=== PATIENT | male | born 1945 | race Caucasian/White ===

== ENCOUNTER 2017-12-24 10:48 | Outpatient (REF) | payer MEDICARE, SELFPAY ==
[2017-12-24 14:00] LABS: TSH 2.99 uIU/mL (0.358-3.74)
== END 2017-12-24 10:49 ==
LOC: NCHCN 10:48
PROVIDERS: PCP Internal Medicine; Visit Provider Internal Medicine
DX: E03.9 Hypothyroidism, unspecified (principal)
CPT/HCPCS: 84443

== ENCOUNTER 2018-01-14 10:14 | Outpatient (CLI) | payer MEDICARE, SELFPAY ==
--- NOTE | 2018-01-14 10:18 | DI.REPORT_ITS ---
SYMPTOMS/DIAGNOSIS: LT ANKLE PAIN, LT FOOT PAIN, M25.572, M79.672 LEFT ANKLE: Three views. No priors. No acute or healing fracture or dislocation is identified. There is mild spurring at the anterior aspect of the distal tibia. The ankle joint is otherwise well maintained. The bones are normally mineralized. There is soft tissue swelling about the ankle particularly laterally. No radiopaque foreign bodies are seen in the soft tissues. IMPRESSION: Soft tissue swelling about the ankle. If there is concern for internal derangement, an MRI should be considered for further evaluation. No acute or healing fracture or dislocation is appreciated. LEFT FOOT: Three views. No acute or healing fracture or dislocation is seen. Mild degenerative changes are seen in the foot predominantly involving the tarsal bone and the first metatarsal phalangeal joint and the interphalangeal joint of the great toe. Spurring is seen of the posterior calcaneus. There is generalized diffuse soft tissue swelling of the foot. No radiopaque foreign bodies are seen. IMPRESSION: 1. Osteoarthritis of the left foot. 2. Generalized soft tissue swelling of the foot.
== END 2018-01-14 10:15 ==
PROVIDERS: PCP Internal Medicine; Visit Provider Nurse Practitioner Family
DX: M25.572 Pain in left ankle and joints of left foot (principal); M79.672 Pain in left foot; R22.42 Localized swelling, mass and lump, left lower limb; M19.072 Primary osteoarthritis, left ankle and foot
CPT/HCPCS: 73610; 73630

== ENCOUNTER 2018-01-16 15:10 | Emergency (ER) | payer MEDICARE, SELFPAY ==
[2018-01-16 15:14] VITALS: BP 162/89; PULSE 83; RESP 18; TEMP 37.1; O2SAT 97
[2018-01-16 15:20] VITALS: BP 136/83; PULSE 61; RESP 18; O2SAT 96
[2018-01-16 15:35] VITALS: BP 135/68; PULSE 61; RESP 16; O2SAT 97
--- NOTE | 2018-01-16 15:40 | DI.RPTCT_ITS ---
SYMPTOM/DIAGNOSIS: NEGATIVE XR, TRAUMA, ? OSTEO LEFT ANKLE CT: The study was carried out with an intravenous administration of 50 cc's of Omnipaque 350. There is no evidence of an acute fracture or dislocation. The possibility of a subdermal hematoma along the dorsolateral aspect of the tarsal metatarsal articulations is suggested. There are advanced degenerative changes in the first metatarsal phalangeal joint. There is some dorsal subdermal subcutaneous edema seen predominantly over the dorsolateral aspect of the tarsal metatarsus. Tiny calcaneal spurs are present along the insertion site of the Achilles tendon and plantar aspect which measures approximately 3.3 by 1.6 cm. There is no radiopaque foreign body. SUMMARY: Dorsal soft tissue swelling is present over the tarsal metatarsals, most prominent over the lateral aspect. A possible subdural hematoma is identified along the dorsolateral aspect of the tarsal metatarsals. There are degenerative changes as described above and no evidence of an acute fracture or dislocation.
[2018-01-16 16:11] LABS: Abs Immature Grans 0.08 k/cumm (0.0-0.09); Absolute Basophil Count 0.06 k/cumm (0.0-0.2); Absolute Eosinophil Count 0.61 k/cumm (0.0-0.7); Absolute Lymphocyte Count 1.59 k/cumm (1.2-3.4); Absolute Monocyte Count 0.93 k/cumm (0.11-0.7); Absolute Neutrophil Count 4.82 k/cumm (1.2-6.7); Basophils % 0.7; Eosinophils % 7.5; HCT 43.5 % (40.0-50.0); HGB 14.8 g/dL (13.5-17.5); Lymphocytes % 19.7; Mean Corpuscular Hemoglobin 31.2 pg (27.0-33.0); Mean Corpuscular Volume 91.6 fL (80-95); Mean Platelet Volume 11.3 fL (8.0-11.0); Monocytes % 11.5; Neutrophils % 59.6; Platelet Count 201 x1000/uL (130-400); RBC 4.75 m/cumm (4.50-6.00); RBC Distribution Width 14.3 % (11.8-14.1); White Blood Cell Count 8.09 k/cumm (4.4-10.8)
--- NOTE | 2018-01-16 16:11 | ED.GENADUL ---
Disposition Clinical Impression: Hematoma Disposition: HOME Condition: Good Instructions: Hematoma (ED) Additional Instructions: Please continue to elevate your foot, wrap it in a stocking hose, and take the antibiotic. Please stop taking your previous dose of Keflex, utilize the new dose as written in the prescription. Please follow-up with your primary care provider in the next 48 hours. If you notice any worsening of your symptoms, or any new symptoms such as vomiting, diarrhea, fever, chills, shortness of breath, chest pain, numbness, weakness, or fainting , please return immediately to the emergency department for reevaluation. Please follow up with your primary care provider as soon as possible for reassessment and reevaluation. As always, it was a pleasure participating in your medical care today. Prescriptions: Cephalexin [Keflex] 500 mg PO Q6H #28 cap Referrals: Paul Spaulding MD [Primary Care Provider] - Medical Decision Making - Medical Decision Making This is a 72-year-old gentleman who is on Coumadin, and had a table fell on his foot on the left 1.5 weeks ago. Since then he has had notable swelling, tenderness, and redness and warmth. He was started on Keflex has been taking this religiously for the past 3 days however he has had no improvement of the redness. Physical exam demonstrates notable redness and swelling, bedside ultrasound demonstrates an area of nonfluctuant fluid collection over the dorsal aspect of the foot extending down towards the toes which does seem to represent a large hematoma. He was sent in by his PCP for evaluation of potential osteomyelitis or cellulitis or infection. We will perform a laboratory workup to evaluate for any potential infection versus osteomyelitis. We will get a laboratory workup to confirm this. We will get a culture of the fluid coming from his lesion. If it turns out to be resistant his antibiotics will be changed. 5:46 PM Patient's INR is within normal limits. No significant white count, ESR is normal, CRP is only minimally elevated. No other significant severe laboratory abnormality. The patient's CT scan of the lower extremity shows no definite identification of subcutaneous gas or periosteal elevation to indicate subcutaneous abscess or osteomyelitis at the present time. There is dorsal soft tissue swelling over the tarsal metatarsals most pronounced along the lateral aspect, and a possible subdermal hematoma is identified along the dorsal aspect of the tarsal metatarsal articulations. With a benign laboratory workup, no vital sign suggestive of systemic infection, and CT images showing no gas, periosteal elevation or significant signs of infection I feel he can be safely discharged home. I do think it is tang to continue the Keflex. He was on 500 mg twice daily, however I will increase this to 4 times daily as the patient is a larger man and I feel a slight increase dose to be more appropriate in the current clinical scenario. We long discussion regarding red flags which to immediately return the patient understands. Patient will follow up on Sunday with his PCP. I have extensively reviewed the treatment plan and discharge instructions with the patient and their family. I have addressed all patient concerns at this time. The patient and family was made aware of what symptoms to monitor for that would warrant a return to the emergency department. Discussed the plan with the patient and family, they demonstrate verbal understanding and agreement with our assessment and plan at this time. History of Present Illness - General Chief complaint: Orthopedic Stated complaint: PER [facility] Time Seen by Provider: 01/16/18 15:40 - History of Present Illness Initial comments: This is a 72-year-old male with a past medical history of Coumadin use, CABG, AAA, who presents for evaluation of left foot pain. Patient states that 1.5 weeks ago he dropped a very heavy picnic table on the dorsal aspect of his left foot. He had notable pain after that. There was initial bruising and swelling, which eventually went down with time. He was seen by his primary care provider and started on Keflex. He has been on this Keflex for 3 few days at this point, and has had no significant improvement. He has no previous history of MRSA there was some redness noted around the dorsal aspect of the foot, this redness had not been improving per his nursing . They did contact her primary care provider who recommended that they come to the ER for further evaluation of osteomyelitis or osteoarthritis. Currently the patient states that the pain is located in his foot extending up to his ankle. There is mild redness in this area. There is a small amount of drainage coming from the dorsal aspect of the foot. It was initially clear in color but now is slightly yellow. Pain is made worse by palpation and movement. It is improved by nothing. He denies any other associated complaints or symptoms. He denies any fevers, chills, cough, calf pain, thigh pain. He denies any pain in his knee or hip. Past surgical history is positive for left knee repair, CABG. AAA repair. No pertinent family history. No IV or illicit drug use. No other complaints at this time. - Related Data Aspirin 81 mg PO DAILY tab-cap NS 08/29/12 Levothyroxine Sodium [Synthroid] 150 mcg PO DAILY tab-cap NS 08/29/12 Metoprolol Succinate [Toprol Xl] 200 mg PO DAILY 08/29/12 Rosuvastatin [Crestor] 2.5 mg PO EVERY OTHER DAY 08/29/12 Warfarin [Coumadin] 2.5 mg PO DIRECTED 08/29/12 Lactase Enzyme [Lactaid] 1 cap PO DAILY 04/28/14 Acetaminophen with Codeine [Acetaminophen-Cod #4 Tablet] 1 tab-cap PO Q4H PRN tab-cap 05/29/14 Duloxetine HCl 30 mg PO DAILY NS 09/18/17 Amlodipine Besylate 10 mg PO DAILY #90 tab-cap 10/24/17 Dofetilide 500 mcg PO Q12H #60 tab-cap 12/07/17 Cephalexin [Keflex] 500 mg PO Q6H #28 cap 01/16/18 Allergies Allergy/AdvReac Type Severity Reaction Status Date / Time doxycycline calcium AdvReac Unknown bradycardia Unverified 01/16/18 15:19 [From Vibramycin] Review of Systems Other: 10 point review of systems was performed, pertinent positives and negatives are noted in the history of present illness. General Exam - Other Other exam information: 1.Const: Well-nourished, Well-developed, appearing stated age 2.Eyes: PERRL, no conjunctival injection, and symmetrical lids. 3.ENT: Atraumatic external nose and ears. Moist MM. Neck: Symmetric, trachea midline, No thyromegaly. 4.CVS: +S1/S2, No murmurs or gallops. Peripheral pulses 2+ and equal in all extremities. Brisk capillary refill in all extremities. 5.RESP: Unlabored respiratory effort. Clear to auscultation bilaterally. No wheezes rales or rhonchi 6.GI: Soft, Nontender/Nondistended, No hepatosplenomegaly. No guarding or rebound. 7.MSK: Patient demonstrates redness over the dorsal aspect of his left foot, as well as notable swelling in this area. A small amount of discharge is noted from the dorsal aspect, it is clear in color. Notable tenderness and some fluctuance over this area. Erythema extends to the base of the toes, and extends roughly 1 cm proximal of the ankle. Pain with palpation and movement of this area, as well as pain with palpation and movement of the left ankle. Mild warmth over this area. Sensation is intact, capillary refill is brisk. Dorsalis pedis is +2 bilaterally. 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 Sensation grossly intact, no focal neurologic deficits. 10.Psych: (AAO) x3. Appropriate mood and affect Course Vital Signs - 24 hr 01/16/18 01/16/18 01/16/18 15:14 15:20 15:35 Temperature 37.1 C Pulse 83 61 61 Respiratory 18 18 16 Rate Blood Pressure 162/89 136/83 135/68 Pulse Oximetry 97 96 97
[2018-01-16 16:27] LABS: ALT 14 U/L (12-78); AST 17 U/L (15-37); Albumin 3.5 g/dL (3.4-5.0); Alkaline Phosphatase 71 U/L (46-116); Anion Gap 6.5 mmol/L (3-11); BUN 22 mg/dL (7-18); Bilirubin, Total 0.6 mg/dL (0.2-1.0); CO2 27.5 mmol/L (21.0-32.0); CREATININE 1.53 mg/dL (0.70-1.30); Chloride 103 mmol/L (98-107); Estimated GFR 44.71 (mL/min/1.73m2); Glucose 135 mg/dL (70-100); INR 2.5 (1.0-3.5); PTT Activated 37.3 sec (21.0-31.4); Potassium 3.8 mmol/L (3.5-5.1); Prothrombin Time 23.2 sec (9.3-10.8); Sodium 137 mmol/L (136-145); Total Protein 7.5 g/dL (6.4-8.2)
[2018-01-16] MEDS: Omnipaque 350 MG/ML 50 ML BTL IJ (16:33)
[2018-01-16 17:04] LABS: ESR 14 MM/HR (1-20)
--- NOTE | 2018-01-16 17:13 | DI.VRAD_ITS ---
EXAM: CT Left Lower Extremity With Intravenous Contrast, Foot CLINICAL HISTORY: 72 years old, male; Signs and symptoms; Edema; Yes, it is localized TECHNIQUE: Axial computed tomography images of the left foot with intravenous contrast. All CT scans at this facility use at least one of these dose optimization techniques: automated exposure control; mA and/or kV adjustment per patient size (includes targeted exams where dose is matched to clinical indication); or iterative reconstruction. Coronal and sagittal reformatted images were created and reviewed. CONTRAST: 50 mL of omnipaque administered intravenously. COMPARISON: CR - LEFT FOOT COMPLETE 01/14/2018 10:18 AM FINDINGS: Bones/joints: No acute fracture is detected. There may be an associated ellipsoid-shaped 4.0 x 1.0 cm subdermal hematoma along the dorsal lateral aspect overlying the tarsal-metatarsal articulations. Advanced degenerative arthritis is seen within the first IP joint. The remaining articular interspaces appear adequately maintained. No dislocation. Soft tissues: Some dorsal subdermal/subcutaneous edema is seen predominantly over the dorsal lateral aspect of the tarsal-metatarsals. Tiny calcaneal spurs are present arising from along the insertion site of the Achilles tendon and plantar aspects which measure approximately 3.3 and 1.6 mm in length respectively. No radiopaque foreign body. IMPRESSION: 1. Dorsal soft tissue swelling is present over the tarsal-metatarsals; most pronounced along the lateral aspect. 2. A possible subdermal hematoma is identified along the dorsal-lateral aspect of the tarsal-metatarsal articulations as described above. Dictated and Authenticated by: Aidan Stafford MD. Ordering:MARY GRACE SU MD
[2018-01-16 17:30] VITALS: BP 113/76; PULSE 64; RESP 16; TEMP 37; O2SAT 96
[2018-01-16] MEDS: Normal Saline 500 ML 1000 ML IV (17:33)
== END 2018-01-16 18:02 | disposition home or self-care (01) ==
LOC: ER 01-16 20:51
PROVIDERS: Emergency Provider Student in an Organized Health Care Education/Training Program; PCP Internal Medicine
DX: S90.32XA Contusion of left foot, initial encounter (principal); W20.8XXA Other cause of strike by thrown, projected or falling object, initial encounter; I12.9 Hypertensive chronic kidney disease with stage 1 through stage 4 chronic kidney disease, or unspecified chronic kidney disease; N18.9 Chronic kidney disease, unspecified; Z79.01 Long term (current) use of anticoagulants; I48.91 Unspecified atrial fibrillation
CPT/HCPCS: 73701; 99284; 99285; Q9967; 36415; 80053; 85652; 85025; 85610; 85730; 86140; 87070; 87205

== ENCOUNTER 2018-02-25 16:06 | Outpatient (REF) | payer MEDICARE, SELFPAY ==
[2018-02-25 21:32] LABS: INR 1.8 (1.0-3.5); Prothrombin Time 17.5 sec (9.3-10.8)
[2018-02-25 21:49] LABS: Anion Gap 12.3 mmol/L (3-11); BUN 22 mg/dL (7-18); CO2 25.7 mmol/L (21.0-32.0); CREATININE 1.55 mg/dL (0.70-1.30); Calcium 9.5 mg/dL (8.5-10.1); Chloride 102 mmol/L (98-107); Estimated GFR 44.05 (mL/min/1.73m2); Glucose 101 mg/dL (70-100); NT-proBNP 166 pg/mL; Potassium 4.5 mmol/L (3.5-5.1); Sodium 140 mmol/L (136-145)
== END 2018-02-25 16:26 ==
LOC: NCHCN 16:06
PROVIDERS: PCP Internal Medicine; Visit Provider Internal Medicine
DX: R06.09 Other forms of dyspnea (principal); R60.0 Localized edema; I48.91 Unspecified atrial fibrillation
CPT/HCPCS: 80048; 83880; 85610

== ENCOUNTER 2018-02-26 11:45 | Outpatient (CLI) | payer MEDICARE, SELFPAY ==
--- NOTE | 2018-02-26 09:57 | DI.US_ITS ---
SYMPTOMS/DIAGNOSIS: LEG EDEMA, R60.0, PAIN, M79.672, ? DVT/BAKERS CYST LEFT LOWER EXTREMITY ULTRASOUND: The deep veins of the left lower extremity show normal compression, augmentation and color flow. No evidence of a deep venous thrombus is seen. Within the popliteal fossa there is a 1.6 x 0.8 x 0.9 cm fluid collection likely reflecting a popliteal cyst. There is fluid seen in the subcutaneous tissues around the knee particularly medially and superior to the knee. IMPRESSION: 1. No evidence of a left lower extremity deep venous thrombus. 2. 1.6 cm popliteal cyst. 3. Fluid in the subcutaneous tissues about the knee.
== END 2018-02-26 12:05 ==
PROVIDERS: PCP Internal Medicine; Visit Provider Internal Medicine
DX: M79.662 Pain in left lower leg (principal); R60.0 Localized edema; M71.22 Synovial cyst of popliteal space [Baker], left knee
CPT/HCPCS: 93971

== ENCOUNTER 2018-03-18 13:32 | Outpatient (CLI) | payer MEDICARE, SELFPAY ==
--- NOTE | 2018-03-18 13:29 | DI.RAD_ITS ---
SYMPTOM/DIAGNOSIS: LT KNEE AND RT HIP PAIN LEFT KNEE AND LEG LENGTH EXAMINATION: There is loss of the medial joint compartment of the left knee. There is flattening of the articular surfaces. Moderately severe narrowing of the patellofemoral joint is present. Prominent osteophytes are seen of the patellofemoral joint. There are small to moderate sized osteophytes arising from both the medial and lateral femoral tibial joint spaces. No acute fracture or dislocation is seen. The bones are normally mineralized. There is a small joint effusion. There is a well circumscribed osseous density in the suprapatellar region suspicious for a loose body. Vascular calcifications are seen in the soft tissues. The right knee shows mild narrowing of the medial femoral tibial joint space and small osteophytes both medially and laterally. Soft tissue vascular calcifications are seen in the soft tissues. The left lower extremity measures 97.9 cm. The right lower extremity measures 99.5 cm. IMPRESSION: 1. Marked osteoarthritis of the left knee. 2. Mild degenerative changes of the right knee. RIGHT HIP AND PELVIS: Comparison is made with 05/15/13. In the right hip, there is moderate narrowing of the joint space. Mild subchondral sclerosis and spurring is seen at the acetabulum. Mild acetabular spurring is seen in the left hip. The joint space is otherwise well maintained. The bones are intact and normally mineralized. Vascular calcifications are seen in the soft tissues. No acute fracture or dislocation is seen. IMPRESSION: Mild degenerative changes of the hips bilaterally, right greater than left.
== END 2018-03-18 13:52 ==
PROVIDERS: PCP Internal Medicine; Referring Provider Internal Medicine; Visit Provider Student in an Organized Health Care Education/Training Program
DX: M25.562 Pain in left knee (principal); M25.551 Pain in right hip; M17.0 Bilateral primary osteoarthritis of knee; M16.0 Bilateral primary osteoarthritis of hip; M25.462 Effusion, left knee
CPT/HCPCS: 99202; 99214; 73502; 73560; 77073

== ENCOUNTER 2018-03-28 00:14 | Outpatient (CLI) | payer MEDICARE, SELFPAY ==
--- NOTE | 2018-03-28 07:04 | DI.RAD_ITS ---
SYMPTOMS/DIAGNOSIS: RIGHT HIP PAIN, M25.551 RIGHT HIP INJECTION: Fluoroscopy Time: 2 sec Under fluoroscopic control, Dr. Hull carried out a right hip joint injection. Please see the procedure report for further information.
[2018-03-28] MEDS: methylPREDNISolone ACETATE 80 MG/ML VIAL IM (14:50)
[2018-03-28] MEDS: Bupivacaine 0.5% Pres-Free 10 ML VIAL 30 ML IJ (14:51)
[2018-03-28] MEDS: Omnipaque 300 MG/ML 10 ML BTL IJ (14:53)
--- NOTE | 2018-03-28 15:34 | OPPNE_ITS ---
Date of service: 03/28/18 Time of Service: 15:33 Procedure Note Date of procedure: 03/28/18 Procedure: Right Hip Injection with Fluoroscopic Guidance Surgeon/Proceduralist/Physician: Maxi Hull Procedure Diagnosis: Right Hip Osteoarthritis Procedure Indications: Mr. Vazquez has had persistent pain of the RIGHT hip and groin. Noninvasive measures have been tried. To serve as both diagnostic and therapeutic, an injection under fluoroscopy was recommended. I had discussed the risks of the procedure and the patient elected to proceed. Procedure Description: Mr. Vazquez was greeted in the flouroscopy room. The correct side was identified and the consent was reviewed with the patient and signed. The patient was then placed in the supine position on the fluoroscopy table. The RIGHT hip was then prepped with Chloraprep. The anterolateral injection starting point was identiifed by bony landmarks and fluoroscopy. The skin and soft tissue in the tract of the injection was anesthetized with 1% Lidocaine. A spinal needle was then inserted deep into the hip joint at the level of the lateral femoral neck under fluoroscopic guidance. A small amount of Omnipaque solution was injected to confirm intraarticular placement. Once confirmed, the hip was injected with 6cc of 0.5% Bupivicaine and 80mg of Depo- Medrol. A bandaid was placed on the injection site. The patient tolerated the procedure well and noted improvement in pre-injection pain.
== END 2018-03-28 00:34 ==
PROVIDERS: PCP Internal Medicine; Visit Provider Student in an Organized Health Care Education/Training Program
DX: M25.551 Pain in right hip (principal); M16.11 Unilateral primary osteoarthritis, right hip
CPT/HCPCS: 20610; 77002; J1040

== ENCOUNTER → 2018-06-28 10:51 | Outpatient (BNVA) | payer OTHER, SELFPAY | PROVIDERS: PCP Internal Medicine; Visit Provider Internal Medicine Cardiovascular Disease | DX: G47.30 Sleep apnea, unspecified; I49.5 Sick sinus syndrome; I48.0 Paroxysmal atrial fibrillation; E66.9 Obesity, unspecified; Z79.899 Other long term (current) drug therapy; Z95.1 Presence of aortocoronary bypass graft; I10 Essential (primary) hypertension; Z79.01 Long term (current) use of anticoagulants; Z45.018 Encounter for adjustment and management of other part of cardiac pacemaker; I25.118 Atherosclerotic heart disease of native coronary artery with other forms of angina pectoris; E03.9 Hypothyroidism, unspecified | CPT/HCPCS: 93280; 99214 ==

== ENCOUNTER 2018-07-03 00:01 | Outpatient (CLI) | payer OTHER, SELFPAY ==
--- NOTE | 2018-07-03 06:51 | MERGEMPI_ITS ---
*[facility]* [address] [place] [address] Myocardial Perfusion Imaging - SPECT Regadenoson Date of study: 07/03/2018 *PATIENT PRESENTATION* Height: 177.8cm (70in) Blood Pressure: Weight: 124.5kg (274lb) BSA: 2.53m^2 Referring physician: José Manuel Gomez Ordering physician: Ivan Marte Impressions: Normal myocardial perfusion and contraction after pharmacological stress. Summary: 1. Myocardial perfusion imaging: No myocardial perfusion defects noted. 2. The calculated left ventricular ejection fraction after stress: 53%. LV global systolic function is normal. No left ventricular regional motion abnormality. 3. Stress ECG conclusions: The stress ECG is negative. 4. Baseline ECG: Atrial paced rhythm. Indication: I48.91, I25.10, Z95.1. History: REASON FOR TESTING: PATIENT REPORTS RECENT RECURRENT EPISODES OF FEELING SICK TO MY STOMACH, FOLLOWED BY SUDDENLY FEELING CLAMMY AND SWEATY WHENEVER HE EXERTS HIMSELF, LIKE WALKING UP FLIGHT OF STAIRS OR SHOVELING SNOW. HE IS PLANNING FOR A TOTAL KNEE ARTHROPLASTY AT [facility] [place]. HE DENIES CHEST/PRESSURE AND SOB UPON ARRIVAL FOR LEXISCAN STRESS TESTING. SIGNIFICANT PAST MEDICAL HISTORY: S/PCABG IN 2010, PACEMAKER IMPLANT 2005, PAROXYSMAL ATRIAL FIBRILLATION, OBSTRUCTIVE SLEEP APNEA ON CPAP. SMOKING STATUS: QUIT 1996. SMOKED FOR 35 YEARS 1 PPD HISTORY. EXERCISE ROUTINE: DAILY ADL'S AND WALKS DOG DAILY FOR 30 MINUTES. Risk factors: Family history of coronary artery disease. Hypertension. Obesity. Cholesterol: 127mg/dl. HDL: 42mg/dl. LDL: 69mg/dl. Triglycerides: 108mg/dl. Peripheral vascular disease. ALLERGIES: DOXYCYCLINE CALCIUM, STATINS. MEDICATIONS: ASPIRIN 81 MG DAILY, LEVOTHYROXINE 150 MCG DAILY, METOPROLOL SUCCINATE 200 MG DAILY, CRESTOR 2.5 MG EVERY OTHER DAY, WARFARIN 2.5 MG Sunday AND SUNDAY--WARFARIN 5 MG ON Sunday AND SUNDAY, LACTOSE PRN, ACETAMINOPHEN/CODEINE PRN, DULOXETINE 30 MG DAILY, AMLODIPINE 10 MG DAILY, DOFETILIDE 500 MCG BID. Imaging Technique: Protocol: Regadenoson. Acquisition: Gated SPECT; 1 day - rest/stress. The patient was imaged in the supine position. Attenuation correction used. Isotope administration: - Rest. Tc[99m]-sestamibi. Dose: 10.4mCi. Injection time: 08:15 AM. Injection to stress time: 00:45. - Stress. Tc[99m]-sestamibi. Dose: 33.3mCi. Injection time: 11:15 AM. 1-2 min before end of exercise Baseline EC % ATRIAL PACED. HEART RATE 61. Atrial paced rhythm. Stress protocol: +--------+--+ + + !Stage !HR!BP (mmHg) !Comments ! +--------+--+ + + !Baseline!61!140/88 (105)! ! +--------+--+ + + !1 min !60!130/80 (97) !Inject Regadenoson.! +--------+--+ + + !3 min !60!132/80 (97) ! ! +--------+--+ + + !6 min !60!134/80 (98) ! ! +--------+--+ + + * Stress results: STRESS TEST ENDED IN 6 MINUTES 48 SECONDS. NORMAL HEART RATE AND BLOOD PRESSURE RESPONSE TO LEXISCAN INJECTION. NO ANGINA NO ECTOPY NO SIGNIFICANT ST SEGMENT CHANGES. The rate-pressure product for the peak heart rate and blood pressure was 8540mm Hg/min. Stress ECG: The stress ECG is negative. Myocardial perfusion: Imaging information: gated. The image quality was good. Left ventricular size is normal. No myocardial perfusion defects noted. Ventricular Function (Wall Motion): The calculated left ventricular ejection fraction after stress: 53%. LV global systolic function is normal. No left ventricular regional motion abnormality. Study data: José Manuel Gomez MD supervised and was readily available during the procedure. This study was interpreted by [facility]. Study status: Routine. Consent: The risks, benefits, and alternatives to the procedure were explained to the patient and informed consent was obtained. Procedure: Initial setup. A baseline ECG was recorded. Surface ECG leads and manual cuff blood pressure measurements were monitored. Heart sounds: Normal. Lung sounds: Normal. Regadenoson stress test. Stress testing was performed, with regadenoson by intravenous bolus, for a total dose of 0.4mgover 10.00sec, followed by a 5ml saline flush. The infusion was terminated due to per protocol. Study completion: All catheters inserted during the procedure were removed. The patient tolerated the procedure well and was discharged from the lab. Discharge: The patient left the laboratory in stable condition. Birthdate: Patient birthdate: 1945. Sex: Gender: male. Study date: Study date: 07/03/2018. Study time: 00:01 AM. Signature Documentation: - The imaging portion of this study was interpreted by Nuclear Freight Coordinator José Manuel Gomez MD. - The Stress ECG portion of this study was interpreted by José Manuel Gomez MD. Electronically signed by José Manuel Gomez 07/03/2018 12:44
[2018-07-03] MEDS: Regadenoson 0.4 MG/5 ML SYR IVP (09:15)
== END 2018-07-03 00:21 ==
PROVIDERS: PCP Internal Medicine; Visit Provider Internal Medicine Cardiovascular Disease
DX: I48.0 Paroxysmal atrial fibrillation (principal); I25.10 Atherosclerotic heart disease of native coronary artery without angina pectoris; Z95.1 Presence of aortocoronary bypass graft; Z95.0 Presence of cardiac pacemaker; I10 Essential (primary) hypertension; Z87.891 Personal history of nicotine dependence; Z82.49 Family history of ischemic heart disease and other diseases of the circulatory system
CPT/HCPCS: 78452; 93016; 93018; 93017; J2785

== ENCOUNTER → 2018-07-25 13:43 | Outpatient (BNVA) | payer OTHER, SELFPAY | PROVIDERS: PCP Internal Medicine; Visit Provider Internal Medicine Cardiovascular Disease | DX: R42 Dizziness and giddiness (principal); H53.9 Unspecified visual disturbance; I49.5 Sick sinus syndrome; I48.0 Paroxysmal atrial fibrillation; E66.9 Obesity, unspecified; I10 Essential (primary) hypertension; I25.10 Atherosclerotic heart disease of native coronary artery without angina pectoris; G47.30 Sleep apnea, unspecified; Z45.018 Encounter for adjustment and management of other part of cardiac pacemaker | CPT/HCPCS: 93280; 99213 ==

== ENCOUNTER 2018-07-29 10:54 | Outpatient (REF) | payer OTHER, SELFPAY ==
[2018-07-29 12:51] LABS: HGB 15.2 g/dL (13.5-17.5); Mean Corp. HGB Concentration 33.8 g/dL (32.0-36.0); Mean Corpuscular Volume 91.8 fL (80-95); Mean Platelet Volume 11.3 fL (8.0-11.0); Platelet Count 178 x1000/uL (130-400); RBC Distribution Width 13.9 % (11.8-14.1); White Blood Cell Count 5.42 k/cumm (4.4-10.8)
[2018-07-29 13:14] LABS: Anion Gap 7.5 mmol/L (3-11); BUN 24 mg/dL (7-18); CO2 29.5 mmol/L (21.0-32.0); CREATININE 1.64 mg/dL (0.70-1.30); Calcium 9.4 mg/dL (8.5-10.1); Chloride 102 mmol/L (98-107); Estimated GFR 41.27 (mL/min/1.73m2); Glucose 137 mg/dL (70-100); Potassium 4.2 mmol/L (3.5-5.1); Sodium 139 mmol/L (136-145)
== END 2018-07-29 11:14 ==
LOC: NCHCN 10:54
PROVIDERS: PCP Internal Medicine; Visit Provider Internal Medicine
DX: I25.810 Atherosclerosis of coronary artery bypass graft(s) without angina pectoris (principal); N18.9 Chronic kidney disease, unspecified
CPT/HCPCS: 80048; 85027; 83735

== ENCOUNTER 2019-01-16 20:51 | Outpatient (REF) | payer OTHER, SELFPAY ==
[2019-01-16 21:42] LABS: Anion Gap 11.7 mmol/L (3-11); BUN 25 mg/dL (7-18); CO2 26.3 mmol/L (21.0-32.0); CREATININE 1.53 mg/dL (0.70-1.30); Chloride 102 mmol/L (98-107); Estimated GFR 44.59 (mL/min/1.73m2); Glucose 104 mg/dL (70-100); Potassium 4.4 mmol/L (3.5-5.1); Sodium 140 mmol/L (136-145); TSH 6.01 uIU/mL (0.36-3.74)
== END 2019-01-16 21:11 ==
LOC: NCHCN 20:51
PROVIDERS: Visit Provider Internal Medicine
DX: I10 Essential (primary) hypertension (principal); E03.9 Hypothyroidism, unspecified
CPT/HCPCS: 80048; 84443

== ENCOUNTER 2019-05-06 11:46 | Outpatient (REF) | payer OTHER, SELFPAY ==
[2019-05-06 22:26] LABS: FREE T4 1.09 ng/dL (0.76-1.46); TSH 5.13 uIU/mL (0.36-3.74)
== END 2019-05-06 12:06 ==
LOC: NCHCN 11:46
PROVIDERS: PCP Internal Medicine; Visit Provider Internal Medicine
DX: E03.9 Hypothyroidism, unspecified (principal)
CPT/HCPCS: 84439; 84443

== ENCOUNTER 2019-11-13 09:35 | Outpatient (REF) | payer OTHER, SELFPAY ==
[2019-11-13 20:41] LABS: FREE T4 1.15 ng/dL (0.76-1.46); TSH 3.18 uIU/mL (0.36-3.74)
== END 2019-11-13 09:55 ==
LOC: NCHCN 09:35
PROVIDERS: PCP Internal Medicine; Visit Provider Internal Medicine
DX: E03.9 Hypothyroidism, unspecified (principal)
CPT/HCPCS: 84439; 84443

== ENCOUNTER 2019-11-25 10:29 | Emergency (ER) | payer OTHER, SELFPAY ==
[2019-11-25] VITALS (34 sets, daily range): BP systolic 114–134; BP diastolic 60–77; PULSE 58–88; RESP 8–25; TEMP 36.7; O2SAT 91–98
--- NOTE | 2019-11-25 10:15 | RT.EKG_ITS ---
APPROVED REPORT Exam: Resting ECG Patient Location: E HR:89 bpm ECG Measurements Heart Rate 89 AXIS NE 182 P [id number] QRSd 101 QRS 45 QT 393 T -5 QTc 478 <Conclusion> Atrial-paced complexes...other complexes also detected T wave inversion in lead III. No acute ST ischemic changes
--- NOTE | 2019-11-25 10:40 | ED.GENADUL_ITS ---
Discharge Plan Disposition Patient Disposition: HOME Condition: Stable Discharge Details Chief Complaint: Chest Pain Clinical Impression: Chest wall pain Primary Care Provider: Paul Spaulding ED Provider: Yaima Terrazas Home Meds and New Rx's Prescriptions: New lidocaine [Lidoderm] 5 % adhesive patch,medicated 1 patch TP DAILY Qty: 15 RF: 0 methocarbamol 500 mg tablet 500 mg PO Q6H PRN (Reason: muscle spasm) Qty: 14 RF: 0 Continued levothyroxine [Synthroid] 25 MCG tablet 150 mcg PO DAILY RF: 0 aspirin [Aspirin Low-Strength] 81 MG tablet,chewable 81 mg PO DAILY RF: 0 acetaminophen-codeine 1 EACH tablet 1 tab-cap PO Q4H PRN RF: 0 duloxetine 30 MG capsule,delayed release(DR/EC) 30 mg PO DAILY RF: 0 amlodipine 10 MG tablet 10 mg PO DAILY Qty: 90 RF: 3 dofetilide 500 MCG capsule 500 mcg PO Q12H Qty: 60 RF: 12 metoprolol succinate [Toprol XL] 100 MG tablet extended release 24 hr 200 mg PO DAILY RF: 0 warfarin [Coumadin] 5 MG tablet 2.5 mg PO DIRECTED RF: 0 rosuvastatin [Crestor] 5 MG tablet 2.5 mg PO EVERY OTHER DAY RF: 0 lactase 1 CAP tablet 1 cap PO DAILY RF: 0 Discharge Instructions Instructions: Chest Wall Pain (ED) Additional Instructions: Alternate ice and heat to the affected area(s) several times daily for 20 minutes at a time. Take Tylenol as needed and directed for pain. Use the Lidoderm patch and muscle relaxer as needed and directed for pain. Call your primary care doctor's office today to schedule a follow-up appointment for reevaluation and for referral for outpatient stress test. Return to the emergency department if you develop any worsening or new concern ing symptoms. Discharge Data Discharge Physician: Yaima Terrazas Medical Decision Making 1030 -- 74-year-old male with a history of obesity, abdominal aortic aneurysm, atrial fibrillation on Coumadin, coronary artery disease and GA with history of CABG, coronary stent and pacemaker presents for left-sided chest pain that started at rest this morning. Admits to recent frequent outdoor work. EKG notes a rate of 89, sinus with some atrial paced complexes, T wave inversion in lead III which is seen in previous EKG, no acute ST ischemic changes. Patient has localized area of significant tenderness to left anterior chest. Suspect most likely musculoskeletal chest wall pain. Considering patient's age and history, will obtain a cardiac work-up including chest x-ray and give a dose of Valium, IV Tylenol as well as place a Lidoderm patch and reassess. 1200 --labs and imaging reviewed and unremarkable. INR therapeutic at 2.5. Creatinine and GFR at baseline. Troponin negative. Urinalysis negative. Chest x-ray negative. Patient reassessed --he states he feels much better. He is agreeable to stay for second troponin and EKG. 1340 --repeat EKG unchanged. Repeat troponin negative. Patient feels much better and is requesting to go home. Pain near resolved. 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 Advised to call the PCP for follow-up and for outpatient stress test. Usual and customary return precautions given prior to discharge. Pt and agreeable with plan. Medical Records Medical records reviewed: Yes I reviewed the patient's medical records. Imaging Data Radiologic Study: Radiologist's impression: XR CHEST 2V PA LATERAL CLINICAL HISTORY: L chest pain, r/o acute disease TECHNIQUE: 2D digital imaging was performed. COMPARISON: No exams were available for comparison FINDINGS: The heart is enlarged, unchanged. A pacemaker and sternal wires are noted. There are mild underlying fibrotic changes. No infiltrate, effusion or overt pulmonary edema is seen. Degenerative changes are noted in the spine. IMPRESSION: No acute abnormality. Lab Data Lab results reviewed: Yes I reviewed the patient's lab results. Labs: Laboratory Tests Range/Units 11/25/19 11/25/19 11/25/19 10:00 10:00 10:00 WBC (4.4-10.8) k/cumm 5.49 RBC (4.50-6.00) m/cumm 4.91 Hgb (13.5-17.5) g/dL 15.1 Hct (40.0-50.0) % 44.9 MCV (80-95) fL 91.4 MCH (27.0-33.0) pg 30.8 MCHC (32.0-36.0) g/dL 33.6 RDW (11.8-14.1) % 14.0 Plt Count (130-400) x1000/uL 204 MPV (8.0-11.0) fL 11.8 H Immature Gran % % 0.5 Neutrophils % 50.9 Lymphocytes % 27.3 Monocytes % 12.0 Eosinophils % 7.7 Basophils % 1.6 Absolute Neutrophils (1.2-6.7) k/cumm 2.79 Absolute Lymphocytes (1.2-3.4) k/cumm 1.50 Absolute Monocytes (0.11-0.7) k/cumm 0.66 Absolute Eosinophils (0.0-0.7) k/cumm 0.42 Absolute Basophils (0.0-0.2) k/cumm 0.09 PT (9.3-11.0) sec 24.9 H INR (0.9-1.1) 2.5 H APTT (21.0-31.4) sec 34.3 H Sodium (136-145) mmol/L 139 Potassium (3.5-5.1) mmol/L 3.9 Chloride (98-107) mmol/L 103 Carbon Dioxide (21.0-32.0) mmol/L 28.9 Anion Gap (3-11) mmol/L 7.1 BUN (7-18) mg/dL 20 H Creatinine (0.70-1.30) mg/dL 1.50 H Estimated GFR/1.73 m2 (mL/min/1.73m2) 45.50 Glucose (74-106) mg/dL 137 H Calcium (8.5-10.1) mg/dL 9.0 Magnesium (1.8-2.4) mg/dL 2.0 Total Bilirubin (0.2-1.0) mg/dL 0.7 AST (15-37) U/L 16 ALT (16-63) U/L 8 L Alkaline Phosphatase (46-116) U/L 75 Troponin I (<0.06) ng/mL < 0.05 Total Protein (6.4-8.2) g/dL 7.3 Albumin (3.4-5.0) g/dL 3.5 Lipase (73-393) U/L Urine Color (Yellow) Urine Clarity (Clear) Urine pH (5-8) Ur Specific [place] (1.005-1.025) Urine Protein (Negative) mg/dL Urine Ketones (Negative) mg/dL Urine Blood (Negative) Urine Nitrite (Negative) Urine Bilirubin (Negative) Urine Urobilinogen (Up TO 0.2) EU/dL Ur Leukocyte Esterase (Negative) Urine Glucose (Negative) mg/dL Range/Units 11/25/19 11/25/19 11/25/19 10:00 11:40 13:00 WBC (4.4-10.8) k/cumm RBC (4.50-6.00) m/cumm Hgb (13.5-17.5) g/dL Hct (40.0-50.0) % MCV (80-95) fL MCH (27.0-33.0) pg MCHC (32.0-36.0) g/dL RDW (11.8-14.1) % Plt Count (130-400) x1000/uL MPV (8.0-11.0) fL Immature Gran % % Neutrophils % Lymphocytes % Monocytes % Eosinophils % Basophils % Absolute Neutrophils (1.2-6.7) k/cumm Absolute Lymphocytes (1.2-3.4) k/cumm Absolute Monocytes (0.11-0.7) k/cumm Absolute Eosinophils (0.0-0.7) k/cumm Absolute Basophils (0.0-0.2) k/cumm PT (9.3-11.0) sec INR (0.9-1.1) APTT (21.0-31.4) sec Sodium (136-145) mmol/L Potassium (3.5-5.1) mmol/L Chloride (98-107) mmol/L Carbon Dioxide (21.0-32.0) mmol/L Anion Gap (3-11) mmol/L BUN (7-18) mg/dL Creatinine (0.70-1.30) mg/dL Estimated GFR/1.73 m2 (mL/min/1.73m2) Glucose (74-106) mg/dL Calcium (8.5-10.1) mg/dL Magnesium (1.8-2.4) mg/dL Total Bilirubin (0.2-1.0) mg/dL AST (15-37) U/L ALT (16-63) U/L Alkaline Phosphatase (46-116) U/L Troponin I (<0.06) ng/mL < 0.05 Total Protein (6.4-8.2) g/dL Albumin (3.4-5.0) g/dL Lipase (73-393) U/L 82 Urine Color (Yellow) Yellow Urine Clarity (Clear) Clear Urine pH (5-8) 7.0 Ur Specific [place] (1.005-1.025) 1.020 Urine Protein (Negative) mg/dL Negative Urine Ketones (Negative) mg/dL Negative Urine Blood (Negative) Negative Urine Nitrite (Negative) Negative Urine Bilirubin (Negative) Negative Urine Urobilinogen (Up TO 0.2) EU/dL 0.2 Ur Leukocyte Esterase (Negative) Negative Urine Glucose (Negative) mg/dL Negative ECG Data Attestation: I personally reviewed and interpreted this ECG (s) as follows: Interpretation: #1 -- Rate of 89, sinus with some atrial paced complexes, T wave inversion in lead III which is seen in previous EKG. No acute ST elevation or depression. LA 182. QRS 101. QT 393. #2 --Rate of 61, sinus, T wave inversion in lead III. No acute ST elevation or depression. LA 188. QRS 102. QTcB 480. HPI General Mode of arrival: EMS . Date/Time Provider Initiated Documentation: 11/25/19 10:41 . Limitations to Documentation: no limitations . Information obtained by: patient . HPI Narrative: Patient is a 74-year-old male with a history of obesity, abdominal aortic aneurysm, atrial fibrillation on Coumadin, GA, obstructive sleep apnea on CPAP, CABG, pacemaker and coronary stents presents with left-sided chest pain that started while sitting at home this morning. He states the pain feels consistent with a muscle ache that is currently 4/10. He denies any aggravating or alleviating factors. He denies any fever or cough, radiation of pain, shortness of breath, nausea, vomiting or dizziness at this time. He also denies any recent travel, recent surgery, leg pain or swelling. He states he has been doing frequent work around the house including splitting wood, building a wall, and vigorous outdoor work over the past 2 months but denies any known injury. He has not taken any medication for his symptoms. He also admits to decreased appetite with occasional lightheadedness over the past few weeks as well as increased fatigue over the past week. Denies any new medications. Related Data Home Medications Medication Instructions Recorded Confirmed aspirin [Aspirin Low-Strength] 81 mg PO DAILY tab-cap NS 08/29/12 11/25/19 levothyroxine [Synthroid] 150 mcg PO DAILY tab-cap NS 08/29/12 11/25/19 metoprolol succinate [Toprol XL] 200 mg PO DAILY 08/29/12 11/25/19 rosuvastatin [Crestor] 2.5 mg PO EVERY OTHER DAY 08/29/12 11/25/19 warfarin [Coumadin] 2.5 mg PO DIRECTED 08/29/12 11/25/19 lactase 1 cap PO DAILY 04/28/14 11/25/19 acetaminophen-codeine 1 tab-cap PO Q4H PRN tab-cap 05/29/14 11/25/19 duloxetine 30 mg PO DAILY NS 09/18/17 11/25/19 amlodipine 10 mg PO DAILY #90 tab-cap 18 11/25/19 dofetilide 500 mcg PO Q12H #60 tab-cap 12/07/17 11/25/19 lidocaine [Lidoderm] 1 patch TP DAILY #15 each 11/25/19 methocarbamol 500 mg PO Q6H PRN #14 tab 11/25/19 Previous Rx's Medication Instructions Recorded amlodipine 10 mg PO DAILY #90 tab-cap 10/24/17 dofetilide 500 mcg PO Q12H #60 tab-cap 12/07/17 lidocaine [Lidoderm] 1 patch TP DAILY #15 each 11/25/19 methocarbamol 500 mg PO Q6H PRN #14 tab 11/25/19 Allergies Allergy/AdvReac Type Severity Reaction Status Date / Time doxycycline calcium AdvReac Unknown bradycardia Unverified 11/25/19 10:36 [From Vibramycin] nitroglycerin AdvReac Unverified 11/25/19 10:36 [From Nitroglyn] General Stated Complaint: Chest Pain CK: 2 Review of Systems All systems reviewed & are unremarkable except as noted in HPI and below Constitutional Constitutional: Reports as per HPI, Denies chills and Denies fever(s) Eyes Eyes: Denies blurry vision ENT Ears, Nose, Mouth, and Throat: Denies dizziness, Denies sore throat and Denies throat swelling Cardiovascular Cardiovascular: Reports chest pain and Denies dyspnea Respiratory Respiratory: Denies cough and Denies dyspnea Gastrointestinal Gastrointestinal: Denies abdominal pain, Denies diarrhea and Denies vomiting Genitourinary Genitourinary: Denies hematuria and Denies dysuria Musculoskeletal Musculoskeletal: Denies back pain and Denies numbness Integumentary/Breasts Skin/Breast: Denies lesions and Denies rash Neurologic Neurologic: Denies dizziness, Denies localized weakness and Denies numbness Allergic/Immunologic Allergic/Immunologic: Denies throat swelling [facility] Social History Smoking/Tobacco Use Status: Former Tobacco Use Drug use: Never Household members: spouse Housing: house Do you feel safe in your relationship?: Yes Exam Const General: cooperative, healthy appearing and no acute distress HENMT Head: normal to inspection Face and sinus: normal facial exam Eyes General: appearance normal, both eyes and all related structures EOM: EOM intact bilaterally Neck Neck: normal visual inspection and No submandibular swelling Lymphatic: no lymphadenopathy noted Chest Chest: normal inspection of the chest and no tenderness Chest/axillae images: 1. Localized area of tenderness to palpation left anterior chest. No evidence of trauma, rash or cellulitis. Resp Effort & Inspection: normal respiratory effort and able to speak in complete sentences Auscultation: clear to auscultation bilaterally Cardio Rate: regular rate Rhythm: regular rhythm GI Inspection: normal to inspection Palpation: soft, not firm, not rigid and nontender Auscultation: normal bowel sounds Skin General skin exam: no rashes or lesions noted Neuro General: patient alert, patient awake and patient oriented x3 Cognition: normal cognition Speech: speech normal Motor: muscle tone normal throughout Sensory Exam: no sensory deficits noted Extrem General: normal to inspection, full ROM, capillary refill normal, no calf tenderness bilaterally and no edema Psych Appearance: grossly normal Mental Status: mental status grossly normal Speech and Movement: speech and movement normal Affect: normal affect Course Vital Signs Vital signs: Vital Signs Temperature 98.1 F 11/25/19 10:31 Pulse 88 11/25/19 10:31 Respiratory Rate 14 11/25/19 10:31 Pulse Oximetry 96 11/25/19 10:31 Temperature 98.1 F 11/25/19 10:31 Temperature Source Skin 11/25/19 10:31 Pulse 88 11/25/19 10:31 Respiratory Rate 14 11/25/19 10:31 Respiratory Effort Non-Labored 11/25/19 10:31 Pulse Oximetry 96 11/25/19 10:31 Pain Level 5 11/25/19 10:31
[2019-11-25 11:07] LABS: Abs Immature Grans 0.03 k/cumm (0.0-0.09); Absolute Basophil Count 0.09 k/cumm (0.0-0.2); Absolute Eosinophil Count 0.42 k/cumm (0.0-0.7); Absolute Monocyte Count 0.66 k/cumm (0.11-0.7); Absolute Neutrophil Count 2.79 k/cumm (1.2-6.7); Basophils % 1.6; Eosinophils % 7.7; HCT 44.9 % (40.0-50.0); HGB 15.1 g/dL (13.5-17.5); Immature Grans % 0.5 %; Lymphocytes % 27.3; Mean Corp. HGB Concentration 33.6 g/dL (32.0-36.0); Mean Corpuscular Hemoglobin 30.8 pg (27.0-33.0); Mean Corpuscular Volume 91.4 fL (80-95); Mean Platelet Volume 11.8 fL (8.0-11.0); Neutrophils % 50.9; Platelet Count 204 x1000/uL (130-400); RBC 4.91 m/cumm (4.50-6.00); White Blood Cell Count 5.49 k/cumm (4.4-10.8)
[2019-11-25 11:17] LABS: Lipase 82 U/L (73-393)
[2019-11-25 11:18] LABS: INR 2.5 (0.9-1.1); PTT Activated 34.3 sec (21.0-31.4); Prothrombin Time 24.9 sec (9.3-11.0)
[2019-11-25] MEDS: Lidocaine 5% Patch 1 PATCH TP (11:18)
[2019-11-25] MEDS: ACETAMINOPHEN 1,000 MG/100 ML BTL 400 MG IVPB (11:18)
[2019-11-25] MEDS: diazePAM 5 MG TAB PO (11:18)
[2019-11-25] MEDS: Normal Saline 500 ML IV ×2 (11:19→13:05)
--- NOTE | 2019-11-25 11:19 | DI.RAD_ITS ---
EXAM: XR CHEST 2V PA LATERAL CLINICAL HISTORY: L chest pain, r/o acute disease TECHNIQUE: 2D digital imaging was performed. COMPARISON: No exams were available for comparison FINDINGS: The heart is enlarged, unchanged. A pacemaker and sternal wires are noted. There are mild underlyin g fibrotic changes. No infiltrate, effusion or overt pulmonary edema is seen. Degenerative changes are noted in the spine. IMPRESSION: No acute abnormality.
[2019-11-25 11:22] LABS: ALT 8 U/L (16-63); AST 16 U/L (15-37); Albumin 3.5 g/dL (3.4-5.0); Alkaline Phosphatase 75 U/L (46-116); Anion Gap 7.1 mmol/L (3-11); BUN 20 mg/dL (7-18); Bilirubin, Total 0.7 mg/dL (0.2-1.0); CO2 28.9 mmol/L (21.0-32.0); Chloride 103 mmol/L (98-107); Glucose 137 mg/dL (74-106); Potassium 3.9 mmol/L (3.5-5.1); Sodium 139 mmol/L (136-145); Total Protein 7.3 g/dL (6.4-8.2)
[2019-11-25 11:24] LABS: Troponin I < 0.05 ng/mL (<0.06)
--- NOTE | 2019-11-25 11:30 | RT.EKG_ITS ---
APPROVED REPORT Exam: Resting ECG Patient Location: E HR:61 bpm ECG Measurements Heart Rate 61 AXIS MT 188 P 12 QRSd 102 QRS 36 QT 477 T 3 QTc 480 <Conclusion> Sinus rhythm...normal P axis, V-rate 60- [address] ischemic changes. No acute change from previous.
[2019-11-25 11:46] LABS: Bilirubin Negative (Negative); Blood Negative (Negative); Clarity Clear (Clear); Glucose Negative (Negative); Ketones Negative (Negative); Leukocyte Esterase Negative (Negative); Nitrite Negative (Negative); Urobilinogen 0.2 EU/dL (Up TO 0.2)
[2019-11-25 13:36] LABS: Troponin I < 0.05 ng/mL (<0.06)
== END 2019-11-25 13:59 | disposition home or self-care (01) ==
PROVIDERS: Emergency Provider Physician Assistant; PCP Internal Medicine
DX: R07.89 Other chest pain (principal); I48.91 Unspecified atrial fibrillation; Z79.01 Long term (current) use of anticoagulants; Z95.0 Presence of cardiac pacemaker
CPT/HCPCS: 80053; 83690; 93005; 96361; 96365; 99285; 71046; 81003; 83735; 84484; 85025; 85610; 85730; 93010; 99284; J0131

== ENCOUNTER 2020-09-13 10:12 | Outpatient (REF) | payer OTHER, SELFPAY ==
[2020-09-13 13:32] LABS: MCHC 34.1 % (32.0-36.0); MCV 90.9 fL (80-95); MPV 11.6 fL (8.0-11.0); Platelet Count 206 10^3/uL (130-400); RBC 4.84 10^6/uL (4.36-5.78); RDW-SD 43.3 fL; WBC 6.32 10^3/uL (4.4-10.8)
[2020-09-13 13:42] LABS: ESR 5 mm//hr (0-20)
[2020-09-13 13:44] LABS: ALT 16 U/L (16-63); AST 15 U/L (15-37); Albumin 3.7 g/dL (3.4-5.0); Alkaline Phosphatase 66 U/L (46-116); Anion Gap 7.5 mmol/L (3-11); BUN 29 mg/dL (7-18); Bilirubin, Total 0.6 mg/dL (0.2-1.0); CO2 28.5 mmol/L (21.0-32.0); CREATININE 1.6 mg/dL (0.70-1.30); Calcium 8.9 mg/dL (8.5-10.1); Chloride 104 mmol/L (98-107); Estimated GFR 42.12 (mL/min/1.73m2); FREE T4 0.91 ng/dL (0.76-1.46); Glucose 119 mg/dL (74-106); Potassium 4.3 mmol/L (3.5-5.1); Sodium 140 mmol/L (136-145); TSH 5.98 uIU/mL (0.36-3.74)
[2020-09-13 13:45] LABS: C-Reactive Protein < 0.05 mg/dL (0.0-0.3)
== END 2020-09-13 10:13 | disposition home or self-care (01) ==
LOC: NCHCN 10:12
PROVIDERS: PCP Internal Medicine; Visit Provider Internal Medicine
DX: R10.31 Right lower quadrant pain (principal); E03.9 Hypothyroidism, unspecified; K58.9 Irritable bowel syndrome, unspecified; M25.511 Pain in right shoulder; Z12.5 Encounter for screening for malignant neoplasm of prostate
CPT/HCPCS: 80053; 84153; 85027; 85652; 84439; 84443; 86140

== ENCOUNTER 2020-09-15 01:39 | Outpatient (CLI) | payer OTHER, SELFPAY ==
--- NOTE | 2020-09-15 | DI.RAD_ITS ---
EXAM: XR SHOULDER RT COMPLETE 2+V CLINICAL HISTORY: RT SHOULDER PAIN,M25.511. TECHNIQUE: 2D digital imaging was performed. COMPARISON: CR LEFT SHOULDER COMPLETE from 08/05/2009 FINDINGS: There is no evidence of fracture or dislocation. There is significant degenerative changes in the gl enohumeral joint with joint space narrowing and opposing osteophytes on the inferior articular surfac e of the the humeral head and osseous glenoid. No abnormal soft tissue calcifications. There is a r idge on the inferior surface of the acromion, probably responsible for an element of impingement upon the rotator cuff mechanism. Also small downgoing osteophytes at the AC joint level clavicular side Incidentally noted are sternotomy wires and pacemaker. IMPRESSION: Significant degenerative changes in the right glenohumeral joint. There also moderate degenerative c hanges in the right AC joint DATA REPOSITORY: RADIATION DOSE DELIVERED:
--- NOTE | 2020-09-15 | DI.CT_ITS ---
EXAM: CT ABDOMEN PELVIS WO CLINICAL HISTORY: RLQ ABD PAIN,R10.31. TECHNIQUE: Imaging Protocol: Axial computed tomography images with coronal and sagittal reformatted images were created and reviewed CONTRAST MATERIAL: Intravenous: none Oral: Yes. Oral contrast was administered for bowel opacification. COMPARISON: No exams were available for comparison FINDINGS: VISUALIZED LUNG BASES: Benign thin-walled bulla measuring 1 cm noted in the right middle lobe. No pl eural effusions.. Cardiac pacemaker wires are noted. Heart size normal. No pericardial effusion. ABDOMEN: There is no ascites. LIVER: There are no obvious focal hepatic lesions evident of this noninfused study. GALLBLADDER/BILIARY: No obvious gallbladder pathology. CBD is not dilated. PANCREAS: No evidence of pancreatic mass nor dilatation of the pancreatic duct. SPLEEN: Spleen is not enlarged. No obvious intrasplenic lesions. ADRENALS: There are no significant adrenal masses. KIDNEYS:The right kidney is significantly atrophic. It contains 2 exophytic benign cysts office late ral cortex. Jewel the larger of these 2 cysts measures 1.6 x 1.6 cm. The smaller measures 1.0 x 1.0 cm no solid mass nor calculi nor hydronephrosis of the right atrophic right kidney noted. Opposite- left kidney exhibits normal size but contains a hyperdense nodule in the lateral cortex measuring 1.1 by 0.8 cm. No hydronephrosis nor hydroureter on either side. Ureterovesical junctions appear unrem arkable. No obvious abnormality in the urinary bladder.. ABDOMINAL AORTA: There is an aortic EVAR GRAFT in place. Maximum diameter of the [place] aortic sac i s 4 cm. Cannot assess for leak without IV contrast. Nevertheless, there are no abnormal fluid colle ctions surrounding the distal anastomoses at the level of the iliac vessels. LYMPH NODES: There is no retroperitoneal nor paraaortic adenopathy. ABDOMINAL WALL/GI: Small anterior abdominal wall left para umbilical fat containing hernia. Does not contain bowel loops. No bowel obstruction. PELVIS: LYMPH NODES: There is no intrapelvic nor inguinal adenopathy. GI: No evidence of appendicitis.There is extensive sigmoid diverticulosis. No obvious acute divertic ulitis. Diverticuli seen although evident to the splenic flexure of the colon, also without evidence of diverticulitis URINARY BLADDER: No calculi nor obvious masses evident REPRODUCTIVE: Prostate gland is not enlarged. OSSEOUS: Schmorl's nodes invagination seen in the inferior endplate of L1 and superior endplate of L2 . There are no lytic osseous lesions evident. Schmorl's node invagination is also evident at the T8 -T9 level. IMPRESSION: 1. There is an aortic EVAR. Teller aortic sac is 4 cm. Cannot assess for aortic endoleak, given nilda t this is noninfused study. 2. Advanced unilateral atrophy of the right kidney. Right kidney contains 2 small benign cysts. 3. Opposite-left kidney exhibits normal size but contains a hyperdense nodule in the lateral cortex m easuring 1.1 x 0.8 cm. This requires close follow-up, starting with ultrasound. 4. There is extensive sigmoid diverticulosis. No obvious acute diverticulitis. However, please not e that a subtle case of diverticulitis can be missed, given the extensive involvement of the sigmoid. 5. There is a small fat containing left paraumbilical anterior abdominal hernia. This does not cont ain bowel loops and there is no bowel obstruction. RADIATION DOSE DELIVERED: 1,228.84mGy.cm Total DLP DATA REPOSITORY: All CT scans at this facility are submitted to the National Radiology Data Registry (NRDR) Dose Index Registry (DIR) with the [employer] (A[employer]). RADIATION OPTIMIZATION: All CT scans at this facility use at least one of these dose optimization te chniques: automated exposure control; mA and/or kV adjustment per patient size (includes targeted exa ms where dose is matched to clinical indication); or iterative reconstruction.
[2020-09-15] MEDS: Breeza Beverage 473 ML BTL PO ×2 (14:01→14:02)
== END 2020-09-15 01:59 ==
PROVIDERS: PCP Internal Medicine; Visit Provider Internal Medicine
DX: M25.511 Pain in right shoulder (principal); M19.011 Primary osteoarthritis, right shoulder; R10.31 Right lower quadrant pain; N28.1 Cyst of kidney, acquired; K43.9 Ventral hernia without obstruction or gangrene
CPT/HCPCS: 73030; 74176

== ENCOUNTER 2020-10-29 12:07 | Outpatient (CLI) | payer OTHER, SELFPAY ==
--- NOTE | 2020-10-29 12:00 | DI.RAD_ITS ---
Exam(s) XR SHOULDER LT COMPLETE 2+V EXAM: XR SHOULDER LT COMPLETE 2+V CLINICAL HISTORY: pain. TECHNIQUE: 2D digital imaging was performed. COMPARISON: CR XR SHOULDER RT COMPLETE 2+V from 09/15/2020 FINDINGS: BONES: No acute fracture is present. No bony destructive lesion is seen. JOINTS: No dislocation present. prominent spurring at the ac joint, undersurface of the acromion. m oderate glenohumeral joint space narrowing and periarticular spurring. SOFT TISSUE: Normal. IMPRESSION: advanced degenerative changes. DATA REPOSITORY: RADIATION DOSE DELIVERED:
== END 2020-10-29 12:08 | disposition home or self-care (01) ==
LOC: DIORS 12:07
PROVIDERS: PCP Internal Medicine; Referring Provider Internal Medicine; Visit Provider Student in an Organized Health Care Education/Training Program
DX: M75.81 Other shoulder lesions, right shoulder (principal); M75.82 Other shoulder lesions, left shoulder; M16.12 Unilateral primary osteoarthritis, left hip; M25.512 Pain in left shoulder
CPT/HCPCS: 20610; 73030; J1040

== ENCOUNTER 2020-12-02 02:11 | Outpatient (CLI) | payer OTHER, SELFPAY ==
--- NOTE | 2020-12-02 13:30 | DI.RAD_ITS ---
Exam(s) RF JOINT INJECTION FLUORO GUID EXAM: RF JOINT INJECTION FLUORO GUID CLINICAL HISTORY: L HIP INJ UNDER FLUORO, lt hip pain, m25.552 TECHNIQUE: Fluoroscopy provided. Radiologist not present. CONTRAST MATERIAL: None COMPARISON: No exams were available for comparison FINDINGS: Fluoroscopy was provided for Dr. Hull during noted left hip injection. Submitted image(s) reveal needle placement lateral aspect femoral head. Intra-articular contrast inj ected Please refer to the procedure report for complete details. Cumulative Dose: Gregorr=1.67 mGy IMPRESSION: RADIATION DOSE DELIVERED:
--- NOTE | 2020-12-02 13:53 | W.PROCNOTE ---
Date of service: 12/02/20 Time of Service: 13:40 Procedure Note Procedure: Left Hip Injection with Fluoroscopic Guidance Surgeon/Proceduralist/Physician: Maxi Hull Procedure Diagnosis: Left Hip Osteoarthritis Procedure Indications: Sukhdev has had persistent pain of the LEFT hip and buttock. Noninvasive measures have been tried. To serve as both diagnostic and therapeutic, an injection under fluoroscopy was recommended. I had discussed the risks of the procedure and the patient elected to proceed. Procedure Description: Sukhdev was greeted in the flouroscopy room. The correct side was identified and the consent was reviewed with the patient and signed. The patient was then placed in the supine position on the fluoroscopy table. The LEFT hip was then prepped with Chloraprep. The anterolateral injection starting point was identiifed by bony landmarks and fluoroscopy. The skin and soft tissue in the tract of the injection was anesthetized with 1% Lidocaine. A spinal needle was then inserted deep into the hip joint at the level of the lateral femoral neck under fluoroscopic guidance. A small amount of Omnipaque solution was injected to confirm intraarticular placement. Once confirmed, the hip was injected with 6cc of 0.5% Bupivicaine and 80mg of Depo-Medrol. A bandaid was placed on the injection site. The patient tolerated the procedure well.
[2020-12-02] MEDS: Bupivacaine 0.5% Pres-Free 10 ML VIAL 5 ML IJ (13:54)
[2020-12-02] MEDS: Omnipaque 300 MG/ML 10 ML BTL IJ (13:55)
[2020-12-02] MEDS: methylPREDNISolone ACETATE 80 MG/ML VIAL IM (13:56)
== END 2020-12-02 02:31 ==
PROVIDERS: PCP Internal Medicine; Visit Provider Student in an Organized Health Care Education/Training Program
DX: M25.552 Pain in left hip (principal)
CPT/HCPCS: 20610; 77002; J1040

== ENCOUNTER → 2021-02-04 10:26 | Outpatient (BNVA) | payer OTHER, SELFPAY | PROVIDERS: PCP Internal Medicine; Referring Provider Internal Medicine; Visit Provider Student in an Organized Health Care Education/Training Program | DX: M70.62 Trochanteric bursitis, left hip (principal) | CPT/HCPCS: 20610; J1040 ==

== ENCOUNTER → 2021-03-25 10:29 | Outpatient (BNVA) | payer OTHER, SELFPAY | PROVIDERS: PCP Internal Medicine; Referring Provider Internal Medicine; Visit Provider Student in an Organized Health Care Education/Training Program | DX: M70.62 Trochanteric bursitis, left hip (principal); Z98.890 Other specified postprocedural states | CPT/HCPCS: 99213 ==

== ENCOUNTER 2021-04-19 11:00 | Outpatient (REF) | payer OTHER, SELFPAY ==
[2021-04-20 17:15] LABS: COVID-19 RT-PCR UVMMC Result Negative (Negative)
== END 2021-04-19 11:01 | disposition home or self-care (01) ==
LOC: NCHCN 11:00
PROVIDERS: PCP Internal Medicine; Visit Provider Family Medicine
DX: Z20.822 Contact with and (suspected) exposure to COVID-19 (principal)
CPT/HCPCS: U0003; U0005

== ENCOUNTER 2021-04-25 16:04 | Outpatient (REF) | payer MEDICARE, SELFPAY ==
[2021-04-26 13:22] LABS: COVID-19 RT-PCR UVMMC Result Negative (Negative)
== END 2021-04-25 16:05 | disposition home or self-care (01) ==
LOC: NCHCN 16:04
PROVIDERS: PCP Internal Medicine; Visit Provider Family Medicine
DX: Z20.822 Contact with and (suspected) exposure to COVID-19 (principal)
CPT/HCPCS: U0003; U0005

== ENCOUNTER 2021-05-09 12:22 | Outpatient (REF) | payer MEDICARE, SELFPAY ==
[2021-05-09 15:39] LABS: TSH (W/Ref FT4) 10.84 uIU/mL (0.36-3.74)
[2021-05-09 16:21] LABS: FREE T4 1.06 ng/dL (0.76-1.46)
== END 2021-05-09 12:23 | disposition home or self-care (01) ==
LOC: NCHCN 12:22
PROVIDERS: PCP Internal Medicine; Visit Provider Family Medicine
DX: E03.9 Hypothyroidism, unspecified (principal); R97.20 Elevated prostate specific antigen [PSA]; Z12.5 Encounter for screening for malignant neoplasm of prostate
CPT/HCPCS: 84153; 84439; 84443

== ENCOUNTER → 2021-05-12 10:52 | Outpatient (BNVA) | payer MEDICARE, SELFPAY | PROVIDERS: PCP Internal Medicine; Visit Provider Student in an Organized Health Care Education/Training Program | DX: M70.62 Trochanteric bursitis, left hip (principal); M47.816 Spondylosis without myelopathy or radiculopathy, lumbar region; Z95.0 Presence of cardiac pacemaker | CPT/HCPCS: 99214 ==

== ENCOUNTER → 2021-05-30 10:52 | Outpatient (BNVA) | payer MEDICARE, SELFPAY | PROVIDERS: PCP Internal Medicine; Referring Provider Internal Medicine; Visit Provider Urology | DX: R39.89 Other symptoms and signs involving the genitourinary system (principal); R97.20 Elevated prostate specific antigen [PSA] | CPT/HCPCS: 99214 ==

== ENCOUNTER → 2021-06-08 14:48 | Outpatient (CLI) | payer MEDICARE, SELFPAY ==
--- NOTE | 2021-06-08 14:15 | DI.RAD_ITS ---
Exam(s) XR LUMBAR SPINE AP, LAT EXAM: XR LUMBAR SPINE AP, LAT CLINICAL HISTORY: Low back pain - likely arthritic,m54.50 TECHNIQUE: COMPARISON: CR LUMBAR SPINE COMPLETE from 05/06/2010 FINDINGS: Four views were obtained. Note is made of an aortic stent graft. There is a mild left convex lumbar scoliosis. There are very prominent hypertrophic degenerative changes involving vertebral endplates and facet wandy ints throughout the lower thoracic and lumbar spine. There is multilevel disc space narrowing consis tent with disc degeneration. No gross fracture. No erosive or destructive lesion seen. IMPRESSION: Severe hypertrophic degenerative changes of lower thoracic and lumbar spine. RADIATION DOSE DELIVERED: Total DLP
== END ==
PROVIDERS: PCP Internal Medicine; Visit Provider Preventive Medicine Occupational Medicine
DX: M54.59 Other low back pain (principal); M51.35 Other intervertebral disc degeneration, thoracolumbar region; M47.815 Spondylosis without myelopathy or radiculopathy, thoracolumbar region
CPT/HCPCS: 72100

== ENCOUNTER 2021-08-11 09:36 | Outpatient (CLI) | payer MEDICARE, SELFPAY ==
[2021-08-11 09:51] VITALS: BP 123/75; PULSE 71; RESP 20; TEMP 36.8; O2SAT 95
--- NOTE | 2021-08-11 10:33 | PDOC.PAIN ---
Pain Clinic Procedure Note Procedure Note Procedure Note: Lumbar/Sacral Medial Branch Blocks #1 Sukhdev Vazquez has been [facility] for lumbar/sacral medial branch blocks. COMMENTS: I previously evaluated him in our clinic. Pre-procedure pain VAS was 8/10. Dx: Lumbosacral spondylosis without myelopathy Patient was interviewed and the medical record reviewed. There were no medical, pharmacologic, radiographic or other structural contraindications to attempting fluoroscopically guided local anesthetic lumbar/sacral medial branch blocks. Risks and expected side effects as well as potential benefit of the procedure were reviewed and voiced concerns addressed. The printed consent form was signed and witnessed. Standard time-out procedure was performed. Patient was placed in the prone position on the fluoroscopy table and automated blood pressure cuff and pulse oximeter applied. The skin entry points for approaching the anatomic target points of the segmental medial branches of bilateral L3-L5 were identified with anfluoroscopy and marked. Following thorough Chlorhexadine preparation of the skin and draping and 1% lidocaine infiltration of the skin entry points and subcutaneous tissues, a 25 gauge spinal needle was placed under fluoroscopic guidance down on to the target point for each respective segmental medial branch.Position was confirmed in A/P, oblique and lateral views with 0.25ml of omnipaque 240. At this point 0.5ml of 0.5% Bupivacaine was injected at each segmental sensory nerve. Vital signs were stable throughout the procedure and were as recorded in the docflowsheet by the nursing staff. Follow up plans and appointments were discussed and was instructed to keep careful note of how the usual pain was modified by these injections. Specifically was asked to keep a pain diary for the next 4 hours using a numeric pain scale of 0-10 and report these results at the follow-up visit. Post procedure instruction was given as documented in the nursing documentation and having met discharge criteria. Patient was discharged from the [facility]. Based on the medial branches blocked today, if the patient has adequate relief and we are able to proceed to radiofrequency ablation, the treatment should result in the denervation of the bilateral L4-L5 and L5-S1 FACET JOINTS. We would expect to denervate a total of 4 facets during the radiofrequency ablation. COMMENTS: Post-procedure pain VAS = 8/10. Noel Camarena DO, MPH [facility] CC: Paul Spaulding
--- NOTE | 2021-08-11 10:36 | DI.RAD_ITS ---
Exam(s) XR PAIN CLINIC LUMBAR SP 2V EXAM: XR PAIN CLINIC LUMBAR SP 2V CLINICAL HISTORY: lumbar Spondylosis TECHNIQUE: 2D and realtime digital imaging was performed. CONTRAST MATERIAL: Refer to procedure report. COMPARISON: No exams were available for comparison FINDINGS: Fluoroscopy was provided for Dr. Camarena during the performance of a bilateral lumbar medial branch blo ck. Please refer to the procedure report for complete details. Ka,r=41.77 mGy IMPRESSION:
[2021-08-11 10:40] VITALS: BP 141/87; PULSE 64; RESP 18; O2SAT 100
[2021-08-11] MEDS: Omnipaque 240 MG/ML 50 ML BTL IJ (11:20)
[2021-08-11] MEDS: Bupivacaine 0.5% Pres-Free 30 ML VIAL (11:21)
== END 2021-08-11 09:37 | disposition home or self-care (01) ==
LOC: PC 09:37
PROVIDERS: PCP Internal Medicine; Visit Provider Preventive Medicine Occupational Medicine
DX: M47.817 Spondylosis without myelopathy or radiculopathy, lumbosacral region (principal)
CPT/HCPCS: 64493; 64494; 72100; Q9967

== ENCOUNTER 2021-10-05 11:19 | Inpatient (IN) | payer MEDICARE, SELFPAY ==
[2021-10-05] VITALS (36 sets, daily range): BP systolic 130–158; BP diastolic 65–86; PULSE 59–84; RESP 4–23; TEMP 36.5–37.4; O2SAT 92–97
[2021-10-05] MEDS: Dexamethasone 10 MG/ML VIAL 6 MG IVP (12:17)
[2021-10-05 12:29] LABS: Abs Immature Grans 0.05 10^3/uL (0.0-0.06); Absolute Basophil Count 0.06 10^3/uL (0.0-0.2); Absolute Eosinophil Count 0.31 10^3/uL (0.0-0.7); Absolute Lymphocyte Count 1.31 10^3/uL (1.2-3.4); Absolute Monocyte Count 1.92 10^3/uL (0.1-0.8); Absolute Neutrophil Count 6.14 10^3/uL (1.2-6.7); Basophils % 0.6; Eosinophils % 3.2; HCT 42.9 % (40.0-50.0); HGB 14.4 g/dL (13.5-17.5); Immature Grans % 0.5; Lymphocytes % 13.4; MCHC 33.6 % (32.0-36.0); MCV 89 fL (80-95); MPV 11.2 fL (8.0-11.0); Monocytes % 19.6; Neutrophils % 62.7; Platelet Count 191 10^3/uL (130-400); RDW 13.5 % (11.8-14.1); RDW-SD 44.9 fL; WBC 9.79 10^3/uL (4.4-10.8)
--- NOTE | 2021-10-05 12:29 | ED.GENADUL_ITS ---
Discharge Plan Disposition Patient Disposition: [facility] INPATIENT Condition: Serious Discharge Details Chief Complaint: SOB Clinical Impression: COVID-19 virus infection Admit Date/Time: 10/05/21 14:19 Admit Provider: Luc Kumari Attending Provider: Luc Kumari Primary Care Provider: Paul Spaulding ED Provider: Levy Duvall Discharge Instructions Activity:: Activity as Tolerated Equipment/Supplies:: No Equipment Needed Diet:: Low Sodium Discharge Orders Discharge Orders: Discharge Order (Routine); Ordered 10/08/21 Ordered By: Luc Kumari Discharge Data Discharge Date/Time-TO BE ENTERED AT DEPARTURE: 10/05/21 15:24 Medical Decision Making 1239 --76-year-old male with multiple medical problems, vaccinated and boosted for covid, tested positive for COVID 2 days ago at home, here with shortness of breath, fatigue and confusion. Patient saturating in the low to mid 90s but tachypneic. He is breathing easier on nasal cannula oxygen low flow. Plan to initiate treatment with dexamethasone and remdesivir. Plan for hospitalization. -- I spoke with the hospitalist -discussed ED presentation and course, they will admit the patient. Medical Records Medical records reviewed: Yes I reviewed the patient's medical records. Lab Data Lab results reviewed: Yes I reviewed the patient's lab results. HPI General Mode of arrival: ambulatory . Date/Time Provider Initiated Documentation: 10/05/21 11:27 . Limitations to Documentation: no limitations . Information obtained by: patient . HPI Narrative: 76-year-old male with multiple medical problems including history of coronary artery disease, status post pacemaker placement, atrial fibrillation, chronic anticoagulation, sleep apnea, hypertension, AAA status postrepair, chronic renal insufficiency, presents today with chief complaint of shortness of breath. Patient notes he was diagnosed with COVID and 2 days ago with positive test. Patient has associated arthralgias and severe fatigue as well as confusion. Family concerned with degree of confusion and generalized weakness. Oxygen was applied here by nursing and patient notes shortness of breath has improved. Related Data Home Medications Medication Instructions Recorded Confirmed Aspirin Low-Strength 81 mg 81 mg PO DAILY 08/29/12 10/05/21 chewable tablet (aspirin) metoprolol succinate 100 mg 250 mg PO DAILY 08/29/12 10/05/21 tablet,extended release 24 hr (Toprol XL) warfarin 5 mg tablet (Coumadin) 2.5 mg PO DIRECTED 08/29/12 10/05/21 amlodipine 10 mg tablet 10 mg PO DAILY #90 tab-caps 10/24/17 10/05/21 dofetilide 500 mcg capsule 500 mcg PO Q12H #60 tab-caps 12/07/17 10/05/21 duloxetine 30 mg capsule,delayed 30 mg PO DAILY 02/04/21 10/05/21 release levothyroxine 175 mcg capsule 175 mcg PO DAILY 05/30/21 10/05/21 rosuvastatin 5 mg tablet (Crestor) 2.5 mg PO EVERY OTHER DAY 06/08/21 10/05/21 furosemide 20 mg tablet (Lasix) 10 mg PO DAILY 08/02/21 10/05/21 albuterol sulfate 90 mcg/actuation 2 inh inhalation QID PRN #1 ea 10/08/21 breath activated powder inhaler amoxicillin 875 mg-potassium 1 ea PO BID AC #10 tabs 10/08/21 clavulanate 125 mg tablet benzonatate 100 mg capsule 100 mg PO BID PRN #14 caps 10/08/21 hydrocodone 10 mg-chlorpheniramine 5 ml PO Q12H PRN #70 mL 10/08/21 8 mg/5 mL oral susp extend.rel 12hr Previous Rx's Medication Instructions Recorded amlodipine 10 mg tablet 10 mg PO DAILY #90 tab-caps 10/24/17 dofetilide 500 mcg capsule 500 mcg PO Q12H #60 tab-caps 12/07/17 albuterol sulfate 90 mcg/actuation 2 inh inhalation QID PRN #1 ea 10/08/21 breath activated powder inhaler amoxicillin 875 mg-potassium 1 ea PO BID AC #10 tabs 10/08/21 clavulanate 125 mg tablet benzonatate 100 mg capsule 100 mg PO BID PRN #14 caps 10/08/21 hydrocodone 10 mg-chlorpheniramine 5 ml PO Q12H PRN #70 mL 10/08/21 8 mg/5 mL oral susp extend.rel 12hr Allergies Allergy/AdvReac Type Severity Reaction Status Date / Time atorvastatin [From Lipitor] Allergy Mild Verified 10/05/21 11:39 fenofibrate [From Tricor] Allergy Mild Verified 10/05/21 11:39 gemfibrozil Allergy Mild Verified 10/05/21 11:39 simvastatin Allergy Mild Verified 10/05/21 11:39 tetracycline Allergy Mild Verified 10/05/21 11:39 doxycycline calcium AdvReac Unknown bradycardia Verified 10/05/21 11:39 [From Vibramycin] nitroglycerin AdvReac Verified 10/05/21 11:39 [From Nitroglyn] General Stated Complaint: SOB CK: 2 Review of Systems All systems reviewed & are unremarkable except as noted in HPI and below Constitutional Constitutional: Reports body ache(s) and Reports lethargy Cardiovascular Cardiovascular: Denies chest pain and Reports dyspnea Respiratory Respiratory: Reports cough and Reports dyspnea PFSH All Active Problems (Updated 10/10/21 @ 15:47 by Levy Duvall MD) COVID-19 virus infection (Acute) Iliotibial band syndrome affecting left lower leg (Acute) Low back pain (Acute) Elevated PSA (Acute) Degenerative arthritis of lumbar spine (Acute) Trochanteric bursitis of left hip (Acute) Tendonitis of left rotator cuff (Acute) Right rotator cuff tendonitis (Acute) Tinnitus, bilateral (Acute) 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, bilateral (Acute) Sleep apnea (Acute 11/19/14) Sinus node dysfunction (Acute 11/19/14) Paroxysmal atrial fibrillation (Acute 11/19/14) Obesity (Acute 11/19/14) Nonsustained ventricular tachycardia (Acute 02/16/17) 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 MD age 50. Family hx CAD -brother age 50, father age 45 and mother age 62 all dying from MIs. Stress MIBI done September 2012 negative. Echocardiogram with normal ejection fraction in September 2012 Osteoarthritis (Active) Chronic bronchitis (Active) Psoriasis (Active) Herniation of nucleus pulposus (Active) L4,5 History of smoking-35 pack year-quit 1996 (Active) AAA repaired in 2006. 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 Almaguer at [facility] [place] Aneurysm of popliteal artery (Active) Monitored annually by Dr. Almaguer. 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 Coronary Artery Bypass Gaft (CABG) ANDRADE-LAD x2, SVG-Diag1 Coronary Stent 1996 Endovascular AAA repair 2005 Pacemaker 2015 TKA Family History Father Heart disease Mother Heart disease Brother No problems noted. Brother No problems noted. Sister No problems noted. Son History of blood clots Daughter Diverticulitis Thyroid disease Daughter No problems noted. 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 What is your relationship status?: Panel score (0-1 are the most socially isolated patients): 0 Do you feel safe in your relationship?: Yes Exam Const General: cooperative and lethargic Orientation: confused HENMT Mouth: moist mucous membranes Eyes Conjunctivae: normal conjunctivae Sclera: normal sclerae Neck Neck: trachea midline and supple Resp Effort & Inspection: no respiratory distress and tachypneic Auscultation: no rales and rhonchi Cardio Rate: regular rate and not tachycardic Rhythm: regular rhythm GI Palpation: soft, not firm, no guarding, no masses, not rigid and nontender Skin General skin exam: no rashes or lesions noted Neuro General: patient alert, patient awake and tone normal Extrem General: no calf tenderness and no edema Psych Appearance: grossly normal Course Vital Signs Vital signs: Vital Signs Temperature 36.6 C 10/05/21 11:31 Pulse 67 10/05/21 11:31 Respiratory Rate 16 10/05/21 11:31 Blood Pressure 140/65 10/05/21 11:31 Pulse Oximetry 94 10/05/21 11:31 Temperature 36.6 C 10/05/21 11:31 Temperature Source Oral 10/05/21 11:31 Pulse 67 10/05/21 11:31 Respiratory Rate 16 10/05/21 11:31 Respiratory Effort 10/05/21 11:31 Blood Pressure 140/65 10/05/21 11:31 Blood Pressure Position Sitting 10/05/21 11:31 Pulse Oximetry 94 10/05/21 11:31 Oxygen Delivery Method Room Air 10/05/21 11:31 Oxygen Flow Rate 0 10/05/21 11:31 Pain Level 5 10/05/21 11:31
--- NOTE | 2021-10-05 12:40 | DI.RAD_ITS ---
Exam(s) XR PORTABLE CHEST AP EXAM: XR PORTABLE CHEST AP CLINICAL HISTORY: shortness of breath. TECHNIQUE: 2D digital imaging was performed. COMPARISON: CR XR CHEST 2V PA LATERAL from 11/25/2019 FINDINGS: Single AP lordotic portable view. Again noted are sternotomy wires and a bipolar right subclavian pacemaker lead in RA and RV. Mild ca rdiomegaly again noted. Right lung is clear. Left lung/cardiac border is indistinct, this probably related to the lordotic technique. However, re commend nonportable PA and lateral views when clinically possible. Tenting of the right hemidiaphragm is unchanged from the prior study IMPRESSION: Cardiomegaly. Sternotomy. Bipolar pacemaker. Left hemithoracic findings as above, possibly related to the lordotic portable technique. Recommend nonportable PA and lateral views when clinically possible. DATA REPOSITORY: RADIATION DOSE DELIVERED: All CT scans at this facility use at least one of these dose optimization techniques: automated exposure control; mA and/or kV adjustment per patient size (includes targeted e xams where dose is matched to clinical indication); or iterative reconstruction.
[2021-10-05 12:43] LABS: C-Reactive Protein 7.59 mg/dL (0.0-0.3); Creatine Kinase 209 U/L (39-308); INR 1.5 (0.9-1.1); LDH 193 U/L (85-227); PTT Activated 32.1 sec (21.0-27.5); Prothrombin Time 15.4 sec (9.3-11.0)
[2021-10-05 12:51] LABS: Diff Comment Agrees w/ Instrument; RBC Morphology Normal
[2021-10-05 13:08] LABS: ALT 15 U/L (16-63); AST 13 U/L (15-37); Albumin 3.4 g/dL (3.4-5.0); Alkaline Phosphatase 61 U/L (46-116); BUN 17 mg/dL (7-18); Bilirubin, Total 0.7 mg/dL (0.2-1.0); CREATININE 1.5 mg/dL (0.70-1.30); Calcium 8.7 mg/dL (8.5-10.1); Chloride 101 mmol/L (98-107); Estimated GFR 45.26 (mL/min/1.73m2); Glucose 127 mg/dL (74-106); Potassium 3.5 mmol/L (3.5-5.1); Sodium 136 mmol/L (136-145); Total Protein 7.5 g/dL (6.4-8.2); Troponin I < 50 ng/L (<or=60)
[2021-10-05] MEDS: REMDESIVIR 200 MG in Normal Saline 250 ML 250 MG IVPB (13:46)
[2021-10-05 14:10] LABS: Influenza A PCR Negative (Negative); Influenza B PCR Negative (Negative); RSV PCR Negative (Negative)
[2021-10-05 14:16] LABS: COVID-19 PCR Positive (Negative)
--- NOTE | 2021-10-05 16:54 | W.PM.HP.N ---
Date of service: 10/05/21 Time of Service: 15:54 Assessment and Plan Assessment and plan (1) COVID-19 virus infection: Status: Acute Assessment and plan: Continue Remdesivir, wean supplemental oxygenation as tolerated keeping SPO2 of 92% or greater. Use CPAP at night. Encourage pulmonary toiletry with I-S and acapella. Patient is already anticoagulated with warfarin for his paroxysmal atrial fibrillation. However his INR is subtherapeutic. I will put him on therapeutic Lovenox until his INR is above 2. Continue his rosuvastatin Case was discussed with Dr. Levy Duvall, ED attending (2) CAD (coronary artery disease): Status: Acute Assessment and plan: No symptoms of chest pain. Troponin levels have been normal. We will continue to monitor him on telemetry while hospitalized. (3) Atrial fibrillation: Status: Active Assessment and plan: Currently in sinus rhythm. Continue to my monitor him and continue his antidysrhythmic's which includes to set [facility] and Toprol at [place]. (4) Essential hypertension: Status: Acute Assessment and plan: Continue furosemide and amlodipine to continue her Toprol-XL. (5) Hypothyroidism: Status: Active Assessment and plan: Continue levothyroxine (6) Obstructive sleep apnea syndrome: Status: Active Assessment and plan: We will ask respiratory therapy to apply CPAP at night (7) Generalized weakness: Status: Acute Assessment and plan: Consult physical therapy in the morning to evaluate strength and amatory function. History of Present Illness History of Present Illness Chief Complaint: dyspnea, weakness Narrative: 76-year-old male with history of coronary artery disease, previous DE, status post three-vessel coronary artery bypass graft in 2010, status post AAA repair with stent 2005, essential hypertension, status post cardiac pacemaker, paroxysmal atrial fibrillation, who presented to the emergency department today with complaints of dyspnea and nonproductive cough along with fatigue decreased appetite and headache muscle aches. Onset began 2 days ago. He was found to be positive for COVID-19 despite the fact he has had 2 vaccinations and one booster vaccine. He was scheduled for MAB yesterday but misunderstood and did not get his monoclonal antibody infusion but was rescheduled for tomorrow. His daughter checked on him today and called his PCP who advised he come to the ER. Evaluation in the ER included CXR which did not show any infiltrates but demonstrates cardiomegaly. His left lung border/cardiac border was indistinct d/t lordotic technique. Follow up PA/lateral was recommended but not performed. In the ER his vitals demonstrated normal BP of 140/65, normal HR of 69 bpm (sinus rhythm), no tachypnea (RR 16 ) and no hypoxemia (SPO2 94 to 97% on room air. Despite this the ED put him on oxygen and gave him decadron 6 mg IVP and Remdesivir 200 mg IV. The ED provider requested hospitalist to admit the patient for COVID-19 infection. The rest of his lab workup included CBC which was unremarkable, CMP that demonstrated normal LFT but elevated CRP of 7.59, troponin I that was normal. CK that is normal. Creatinine mildly elevated at 1.5. Nasal PCR is positive for SARS-COV2 but negative for influenza A and B and RSV. Patient is admitted for treatment of fatigue, confusion and generalized weakness and acute COVID-19 infection. He will get Remdesivir x 3 days. I do not feel that he will need the decadron if his oxygen levels are normal. He does wear CPAP at night for his JEFERSON and this should be continued. Review of Systems All systems reviewed & are unremarkable except as noted in HPI and below PFSH All Active Problems (Updated 10/05/21 @ 19:13 by Luc Kumari) Generalized weakness (Acute) COVID-19 virus infection (Acute) Iliotibial band syndrome affecting left lower leg (Acute) Low back pain (Acute) Elevated PSA (Acute) Degenerative arthritis of lumbar spine (Acute) Trochanteric bursitis of left hip (Acute) Tendonitis of left rotator cuff (Acute) Right rotator cuff tendonitis (Acute) Tinnitus, bilateral (Acute) 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, bilateral (Acute) Sleep apnea (Acute 11/19/14) Sinus node dysfunction (Acute 11/19/14) Paroxysmal atrial fibrillation (Acute 11/19/14) Obesity (Acute 11/19/14) Nonsustained ventricular tachycardia (Acute 02/16/17) salvage determiner current use of antiarrhythmic medical therapy (Acute 04/07/16) Hx of CABG (Acute 11/19/14) Essential hypertension (Acute 12/06/15) Chronic anticoagulation (Acute 04/07/16) Cardiac pacemaker in situ (Acute 01/29/15) CAD (coronary artery disease) (Acute 11/19/14) Benign hypertension (Active) Atrial fibrillation (Active 12/10/12) Coronary arteriosclerosis (Active) Obstructive sleep apnea syndrome (Active) History of - coronary artery bypass grafting (Active) CABG x 3. DE age 50. Family hx CAD -brother age 50, father age 45 and mother age 62 all dying from MIs. Stress MIBI done September 2012 negative. Echocardiogram with normal ejection fraction in September 2012 Osteoarthritis (Active) Chronic bronchitis (Active) Psoriasis (Active) Herniation of nucleus pulposus (Active) L4,5 History of smoking-35 pack year-quit 1996 (Active) AAA repaired in 2005. 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 Almaguer at [facility] [place] Aneurysm of popliteal artery (Active) Monitored annually by Dr. Almaguer. 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 Coronary Artery Bypass Gaft (CABG) ANDRADE-LAD x2, SVG-Diag1 Coronary Stent 1996 Endovascular AAA repair 2005 Pacemaker 2014 TKA Family History Father Heart disease Mother Heart disease Brother No problems noted. Brother No problems noted. Sister No problems noted. Son History of blood clots Daughter Diverticulitis Thyroid disease Daughter No problems noted. 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 What is your relationship status?: Panel score (0-1 are the most socially isolated patients): 0 Do you feel safe in your relationship?: Yes Meds Allergies and Home Medications Allergies Allergy/AdvReac Type Severity Reaction Status Date / Time atorvastatin [From Lipitor] Allergy Mild Verified 10/05/21 11:39 fenofibrate [From Tricor] Allergy Mild Verified 10/05/21 11:39 gemfibrozil Allergy Mild Verified 10/05/21 11:39 simvastatin Allergy Mild Verified 10/05/21 11:39 tetracycline Allergy Mild Verified 10/05/21 11:39 doxycycline calcium AdvReac Unknown bradycardia Verified 10/05/21 11:39 [From Vibramycin] nitroglycerin AdvReac Verified 10/05/21 11:39 [From Nitroglyn] Home Medications Medication Instructions Recorded Confirmed Type Aspirin Low-Strength 81 mg 81 mg PO DAILY 08/29/12 10/05/21 History chewable tablet (aspirin) metoprolol succinate 100 mg 250 mg PO DAILY 08/29/12 10/05/21 History tablet,extended release 24 hr (Toprol XL) warfarin 5 mg tablet (Coumadin) 2.5 mg PO DIRECTED 08/29/12 10/05/21 History amlodipine 10 mg tablet 10 mg PO DAILY #90 tab-caps 10/24/17 10/05/21 Rx dofetilide 500 mcg capsule 500 mcg PO Q12H #60 tab-caps 12/07/17 10/05/21 Rx duloxetine 30 mg capsule,delayed 30 mg PO DAILY 02/04/21 10/05/21 History release levothyroxine 175 mcg capsule 175 mcg PO DAILY 05/30/21 10/05/21 History rosuvastatin 5 mg tablet (Crestor) 2.5 mg PO EVERY OTHER DAY 06/08/21 10/05/21 History furosemide 20 mg tablet (Lasix) 10 mg PO DAILY 08/02/21 10/05/21 History Exam Narrative Exam Narrative: Morbidly obese male (BMI 41.8 kg/m?) is sitting up in his bed alert oriented to person place circumstance. HEENT unremarkable Neck supple obese no overt JVD normal carotid pulses no bruits Lungs are clear with prolonged expiratory phase no wheezes rales or rhonchi Heart regular rate and rhythm no appreciable murmur rub, chest wall with previous sternotomy scar that is well-healed. Abdomen obese soft nontender nondistended Lower extremities he has bilateral edema left greater than the right which she says is chronically this way. The scar over the left knee from previous TKA. Pedal pulses are intact no ulcerations over his feet or toes. No cyanosis. Results Imaging Chest x-ray: report reviewed and image reviewed Labs Result diagrams: 10/05/21 12:12 10/05/21 12:12 Labs: Laboratory Results - last 24 hr 10/05/21 10/05/21 10/05/21 12:12 12:12 12:12 WBC 9.79 RBC 4.80 Hgb 14.4 Hct 42.9 MCV 89 MCH 30.0 MCHC 33.6 RDW 13.5 Plt Count 191 MPV 11.2 H Immature Gran % 0.5 Neutrophils % 62.7 Lymphocytes % 13.4 Monocytes % 19.6 Eosinophils % 3.2 Basophils % 0.6 Nucleated RBC % 0.0 Absolute Neutrophils 6.14 Absolute Lymphocytes 1.31 Absolute Monocytes 1.92 H Absolute Eosinophils 0.31 Absolute Basophils 0.06 RBC Morphology Normal PT INR APTT Sodium 136 Potassium 3.5 Chloride 101 Carbon Dioxide 25.0 Anion Gap 10.0 BUN 17 Creatinine 1.5 H Estimated GFR/1.73 m2 45.26 Glucose 127 H Calcium 8.7 Magnesium 2.0 Total Bilirubin 0.7 AST 13 L ALT 15 L Alkaline Phosphatase 61 Lactate Dehydrogenase 193 Creatine Kinase 209 Troponin I < 50 C-Reactive Protein 7.59 H Total Protein 7.5 Albumin 3.4 COVID-19 Source SARS-CoV-2 (PCR) Influenza Type A (PCR) Influenza Type B (PCR) RSV (PCR) 10/05/21 10/05/21 12:12 13:15 WBC RBC Hgb Hct MCV MCH MCHC RDW Plt Count MPV Immature Gran % Neutrophils % Lymphocytes % Monocytes % Eosinophils % Basophils % Nucleated RBC % Absolute Neutrophils Absolute Lymphocytes Absolute Monocytes Absolute Eosinophils Absolute Basophils RBC Morphology PT 15.4 H INR 1.5 H APTT 32.1 H Sodium Potassium Chloride Carbon Dioxide Anion Gap BUN Creatinine Estimated GFR/1.73 m2 Glucose Calcium Magnesium Total Bilirubin AST ALT Alkaline Phosphatase Lactate Dehydrogenase Creatine Kinase Troponin I C-Reactive Protein Total Protein Albumin COVID-19 Source Not Applicable SARS-CoV-2 (PCR) Positive A Influenza Type A (PCR) Negative Influenza Type B (PCR) Negative RSV (PCR) Negative Last Vital Signs Temp 36.6 C 10/05/21 15:43 Pulse 84 10/05/21 15:43 Resp 22 10/05/21 15:43 BP 134/68 10/05/21 15:43 Pulse Ox 96 10/05/21 15:43
[2021-10-05 18:52] LABS: Ferritin 360 ng/mL (26-388); Troponin I < 50 ng/L (<or=60)
[2021-10-05 19:11] LABS: C-Reactive Protein 7.44 mg/dL (0.0-0.3); Creatine Kinase 202 U/L (39-308); D-Dimer 441 ng/mlFEU (<500); NT-proBNP 171 pg/mL (<300)
[2021-10-05 20:01] LABS: Procalcitonin 0.1 ng/mL
[2021-10-05] MEDS: Warfarin 5 MG TAB PO (20:56)
[2021-10-05] MEDS: Normal Saline Flush 10 ML SYR IVP (22:02)
[2021-10-05] MEDS: Albuterol/Ipratropium 3 ML UPD VIAL UPD (22:03)
[2021-10-05] MEDS: Aspirin 81 MG CHEW PO (22:04)
[2021-10-05] MEDS: Acetaminophen 325 MG TAB 650 MG PO (22:04)
[2021-10-05] MEDS: Rosuvastatin 5 MG TAB 2.5 MG PO (22:04)
[2021-10-05] MEDS: DULoxetine 30 MG CAP PO (22:06)
[2021-10-05] MEDS: Metoprolol CR 100 MG TABCR PO (22:33)
[2021-10-06 00:17] VITALS: PULSE 77
[2021-10-06 03:20] VITALS: BP 129/62; PULSE 70; RESP 16; TEMP 36.4; O2SAT 94
[2021-10-06] MEDS: Levothyroxine 175 MCG TAB PO (06:05)
[2021-10-06 07:04] VITALS: PULSE 62
[2021-10-06 07:32] LABS: Abs Immature Grans 0.07 10^3/uL (0.0-0.06); Absolute Basophil Count 0.03 10^3/uL (0.0-0.2); Absolute Lymphocyte Count 0.86 10^3/uL (1.2-3.4); Absolute Monocyte Count 0.96 10^3/uL (0.1-0.8); Absolute Neutrophil Count 9.25 10^3/uL (1.2-6.7); Basophils % 0.3; HCT 40.5 % (40.0-50.0); HGB 13.4 g/dL (13.5-17.5); Immature Grans % 0.6; Lymphocytes % 7.7; MCH 29.8 pg (27.0-33.0); MCHC 33.1 % (32.0-36.0); MCV 90 fL (80-95); MPV 11.3 fL (8.0-11.0); Monocytes % 8.6; Neutrophils % 82.8; Platelet Count 200 10^3/uL (130-400); RDW 13.2 % (11.8-14.1); RDW-SD 43.8 fL; WBC 11.17 10^3/uL (4.4-10.8)
[2021-10-06 07:43] LABS: INR 1.7 (0.9-1.1); Prothrombin Time 17.1 sec (9.3-11.0)
[2021-10-06 07:49] LABS: ALT 15 U/L (16-63); AST 11 U/L (15-37); Albumin 3.1 g/dL (3.4-5.0); Alkaline Phosphatase 62 U/L (46-116); Anion Gap 6.1 mmol/L (3-11); BUN 21 mg/dL (7-18); Bilirubin, Total 0.5 mg/dL (0.2-1.0); CO2 27.9 mmol/L (21.0-32.0); CREATININE 1.5 mg/dL (0.70-1.30); Calcium 8.5 mg/dL (8.5-10.1); Chloride 102 mmol/L (98-107); Estimated GFR 45.26 (mL/min/1.73m2); Glucose 210 mg/dL (74-106); Potassium 3.7 mmol/L (3.5-5.1); Sodium 136 mmol/L (136-145); Total Protein 7.1 g/dL (6.4-8.2)
[2021-10-06] MEDS: Normal Saline Flush 10 ML SYR IVP ×2 (08:30→21:11)
[2021-10-06] MEDS: REMDESIVIR 100 MG in Normal Saline 250 ML 250 MG IVPB (08:30)
[2021-10-06] MEDS: Metoprolol CR 100 MG TABCR PO ×2 (08:30→21:10)
[2021-10-06] MEDS: amLODIPine 10 MG TAB PO (08:30)
[2021-10-06] MEDS: Furosemide 20 MG TAB 10 MG PO (08:30)
[2021-10-06] MEDS: Normal Saline 500 ML 30 ML IV (08:30)
[2021-10-06] MEDS: Dofetilide 250 MCG CAP 500 MCG PO ×2 (09:43→21:10)
--- NOTE | 2021-10-06 11:30 | IN_ITS ---
Date of service: 10/06/21 Time of Service: 10:45 PT Notes Visit Reasons: COVID 19 Infection,Generalized Weakness Physical Therapy Inpatient Initial Evaluation Date: 10/06/2021 Referring Doctor: Luc Kumari MD PT Orders: PT CONSULT: Exacerbation Chroninc Cond Precautions: Fall. Standard. Activity as tolerated. Patient Profile/Admitting Diagnosis: Nina is a 76-year-old male who presented to the ED on 10/05/2022 with increasing short of breath, fatigue, and confusion. Patient is diagnosed with COVID-19 virus infection, coronary artery disease, atrial fibrillation, essential hypertension, hypothyroidism, JEFERSON, and generalized weakness. PMHX: All Active Problems?(Updated 10/05/21 @ 19:13 by Luc Kumari) Generalized weakness (Acute) COVID-19 virus infection (Acute) Iliotibial band syndrome affecting left lower leg (Acute) Low back pain (Acute) Elevated PSA (Acute) Degenerative arthritis of lumbar spine (Acute) Trochanteric bursitis of left hip (Acute) Tendonitis of left rotator cuff (Acute) Right rotator cuff tendonitis (Acute) Tinnitus, bilateral (Acute) 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, bilateral (Acute) Sleep apnea (Acute 11/19/14) Sinus node dysfunction (Acute 11/19/14) Paroxysmal atrial fibrillation (Acute 11/19/14) Obesity (Acute 11/19/14) Nonsustained ventricular tachycardia (Acute 02/16/17) custodial current use of antiarrhythmic medical therapy (Acute 04/07/16) Hx of CABG (Acute 11/19/14) Essential hypertension (Acute 12/06/15) Chronic anticoagulation (Acute 04/07/16) Cardiac pacemaker in situ (Acute 01/29/15) CAD (coronary artery disease) (Acute 11/19/14) Benign hypertension (Active) Atrial fibrillation (Active 12/10/12) Coronary arteriosclerosis (Active) Obstructive sleep apnea syndrome (Active) History of - coronary artery bypass grafting (Active) CABG x 3. ?MO age 50. ?Family hx CAD -brother age 50, father age 45 and mother age 62 all dying from MIs.? Stress MIBI done September 2012 negative.? Echocardiogram with normal ejection fraction in September 2012 Osteoarthritis (Active) Chronic bronchitis (Active) Psoriasis (Active) Herniation of nucleus pulposus (Active) L4,5 History of smoking-35 pack year-quit 1996 (Active) AAA repaired in 2005. (Active) Tachybrady syndrome with S/P pacemaker (Active) Aneurysm of iliac artery (Active) monitored annually by Dr. Almaguer at [facility] [place] Aneurysm of popliteal artery (Active) Monitored annually by Dr. Almaguer. Chronic renal insufficiency (Active) WQ ith an atrophic, nonfunctioning Peptic ulcer (Active) Hypothyroidism (Active) Medical History? 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 Appendectomy Colonoscopy - IV Sedation 2010- polypColonoscopy - MAC (11/12/17) Tubular adenoma x3.Coronary Artery Bypass Gaft (CABG) ANDRADE-LAD x2, SVG-Diag1 Coronary Stent 1996 Endovascular AAA repair 2005 Pacemaker 2015 TKA Social History/Home Situation: Lives alone on the first floor of an senior apartment living facility with no steps to enter. Independent with all aspects of ADLs without adaptive or assistive device. Equipment Owned/DME: [facility] Subjective: Agreeable to PT consult. States that he is feeling a lot better than on admission and he feels safe moving about inside his room with a single-point cane. Denies headache, chest pain, and dizziness throughout session. Did report some shortness of breath after ambulation activity that subsided with rest. Objective: General Observation: Seated at edge of bed. Oxygen supplementation via NC at 2 L/min. Mental Status: Alert and oriented as to person, place, time, and purpose. Able to pay attention, focus, and respond appropriately. Pain: Denies Vital Signs: Oxygen saturation stayed above 92% on 2 L/min during ambulation activity ROM: Right Upper Extremity: Shoulder Flexion WFL. Shoulder abduction WFL. Elbow flexion WFL. Wrist flexion WFL. Functional opening and closing of hand WFL. Left Upper Extremity: Shoulder Flexion WFL. Shoulder abduction WFL. Elbow flexion WFL. Wrist flexion WFL. Functional opening and closing of hand WFL. Right Lower Extremity: Hip flexion WFL. Hip abduction WFL. Knee flexion WFL. Ankle dorsiflexion WFL. Ankle plantarflexion WFL. Left Lower Extremity: Hip flexion WFL. Hip abduction WFL. Knee flexion WFL. Ankle dorsiflexion WFL. Ankle plantarflexion WFL. Strength: Right Upper Extremity: Shoulder flexors 4+/5. Shoulder abductors 4+/5. Elbow flexors 5/5. Elbow extensors 5/5. Swing Frame Grinder Operator strong. Left Upper Extremity: Shoulder flexors 4+5. Shoulder abductors 4+/5. Elbow flexors 5/5. Elbow extensors 5/5. Swing Frame Grinder Operator strong. Right Lower Extremity: Hip flexors 4+/5. Hip abductors 5/5. Knee flexors 5/5. Knee extensors 5/5. Ankle dorsiflexors 4+/5. Ankle plantarflexors 5/5. Left Lower Extremity: Hip flexors 4+/5. Hip abductors 5/5. Knee flexors 5/5. Knee extensors 5/5. Ankle dorsiflexors 4+/5. Ankle plantarflexors 5/5. Bed Mobility/Transfers: Rolling independent Supine to sit independent Sit to supine independent Sit to stand independent Stand to sit independent Bed to reclining chair independent Reclining chair to bed independent Gait: Instructed patient with level surface ambulation of 60 feet with modified independent. Rebekah slowed down a bit as he started to get fatigued. THERA EX: Deep breathing exercises incorporated with chest expansion exercises Balance: Static Sitting: Normal Dynamic Sitting: Normal Static Standing: Good Dynamic Standing: Good Special Tests: Mobility Limitations Standardized Measure [facility] AM-PAC 6 clicks Basic Mobility Inpatient Short Form: Raw Score: 24 CMS Score: 0% deficit Informed Consent/Education: Patient was instructed in purpose of PT consult. Assessment: Patient is independent inside room using single-point cane for all transfers and ambulation test performance. Patient and training on deep breathing exercises incorporated into chest expansion activities was done with patient during the session. Patient was also instructed to walk inside the room for 80 feet at least twice in the morning and twice in the afternoon in order to maximize func tional lung capacity and manitain level of independence. No skilled services are needed at this time. PT evaluation only. Patient is assessed as a 94052 moderate complexity based on the following: History: 76 [id number] with past medical history as indicated above Examination: Demonstrable impairment in strength, balance, and mobility level with underlying impairments and functional limitations as exhibited above as well as deficit score of 0% utilizing the [facility] Mobility Inpatient Short Form Presentation: [id number] moderate complexity Goals: N/A PT evaluation only and 1 treatment session for functional mobility training and HEP instruction/training. Plan of Care/Treatment Plan: N/A PT evaluation only and 1 treatment session for functional mobility training and HEP instruction/training. DISCHARGE RECOMMENDATIONS: [X] Home with no services. Home when medically cleared by hospitalist. No equipment needs at this time. [] Home with services [specify] [] Home with outpatient PT [] [] SNF for continued rehabilitation [] [] [facility] [] [] SNF versus LTC based on ability to participate and progress [] TREATMENT CODE/TIME: 79929 x 19 minutes beginning at 11:30 AM. Thank you for the opportunity to participate in the care of this patient. Bree Packer PT, DPT, CLT [facility] [place], [place]
[2021-10-06 14:26] VITALS: PULSE 67
[2021-10-06 15:52] VITALS: BP 120/51; PULSE 63; RESP 22; TEMP 36; O2SAT 95
--- NOTE | 2021-10-06 16:23 | INITIAL_ITS ---
- If Service Date Differs Date of service: 10/06/21 Time of Service: 16:24 Care Management Initial Assess REASON FOR HOSPITALIZATION:: COVID-19 Infection, Generalized weakness PAST MEDICAL HISTORY/PAST SURGICAL HISTORY:: Medical History . Abdominal aortic aneurysm. s/p repair. Abdominal pain. Adenomatous polyp of colon. Aneurysm of popliteal artery. Anticoagulation monitoring, special range. Atrial fibrillation. Chronic bronchitis. Chronic renal insufficiency. Coronary artery disease. Dysrhythmia. Hypertension. Hypothyroid. Iliac artery aneurysm, left. Intervertebral disk disease. DE (myocardial infarction). inferior wall (1996). Myalgia. 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 JEFERSON (obstructive sleep apnea). Osteoarthritis. Paroxysmal a-fib. Peptic ulcer disease. Peripheral neur opathy. Peripheral vascular disease. Psoriasis. Sleep apnea. Tachy-padma syndrome. Vertigo. Surgical History . Appendectomy. Colonoscopy - IV Sedation. 2010- polyp. Colonoscopy - MAC (11/12/17). Tubular adenoma x3. Coronary Artery Bypass Gaft (CABG). ANDRADE-LAD x2, SVG-Diag1. Coronary Stent. 1996. Endovascular AAA repair. 2005. Pacemaker. 2014. TKA PREVIOUS FUNCTIONAL STATUS/SOCIAL/FAMILY SUPPORTS:: Sukhdev resides in [place], [place], he is independent at baseline. His primary support people include his daughters, Belkys and Simi. CURRENT FUNCTIONAL STATUS:: Sukhdev remains on COVID precautions. ADVANCE DIRECTIVES:: None on file. Has patient been provided with info about the portal/API?: No Did the patient sign up for the portal?: No CODE STATUS:: Full Code INSURANCE COVERAGE / FINANCIAL ISSUES:: [employer]. [facility]. Financial Asst 100% CURRENT HOME/COMMUNITY SERVICES/EQUIPMENT:: CPAP; daughter bringing to hospital. PRIMARY CARE PHYSICIAN:: Paul Spaulding POTENTIAL DISCHARGE NEEDS:: Follow up appointments. PATIENT/FAMILY EDUCATION NEEDS:: Review discharge instructions, discuss Ask Me Three. ANTICIPATED BARRIERS TO DISCHARGE:: None identified at this time. TRANSPORTATION:: Via private vehicle with one of his daughters. PLAN:: Anticipate Sukhdev will return home when ready per MD. He will follow up with his PCP and plan of care as prescribed. He will transport via private vehicle with his daughter.
[2021-10-06] MEDS: Ipratropium/Albuterol 4 GM 120 PUFF INH IH ×2 (18:24→21:13)
[2021-10-06] MEDS: Acetaminophen 325 MG TAB 650 MG PO (18:46)
--- NOTE | 2021-10-06 19:21 | PGE_ITS ---
Date of Service Date of service: 10/06/21 Time of Service: 18:22 Assessment and Plan Assessment and plan (1) COVID-19 virus infection: Status: Acute Assessment and plan: continue Remdesivir (day 2 of 3), I will renew his decadron since he is now requiring oxygen. Encourage cough and deep breathing, use of I.S. and acapella. I will add Ceftriaxone for now until we can rule out concomittant bronchitis. CXR did not show any pneumonic consolidations. continue other meds for COVID-19. Already on a statin and anticoagulated w/ warfarin. (2) CAD (coronary artery disease): Status: Acute Assessment and plan: No symptoms of chest pain. Troponin levels have been normal. We will continue to monitor him on telemetry while hospitalized. (3) Atrial fibrillation: Status: Active Assessment and plan: Currently in sinus rhythm but atrial pacing at times. Continue to my monitor him and continue his antidysrhythmic's which includes to dofetilide and metoprol o XL (4) Essential hypertension: Status: Acute Assessment and plan: Continue furosemide and amlodipine to continue her Toprol-XL. (5) Hypothyroidism: Status: Active Assessment and plan: Continue levothyroxine (6) Obstructive sleep apnea syndrome: Status: Active Assessment and plan: We will ask respiratory therapy to apply CPAP at night (7) Generalized weakness: Status: Acute Assessment and plan: Consult physical therapy in the morning to evaluate strength and amatory function. Subjective Subjective Interval history since last seen: Sukhdev states that he had a good morning but this afternoon and evening he had felt worse w/ headache, worsening cough, nasal congestion and body aches. Cough is minimally productive of clear mucous. He remains afebrile. Exam Narrative Exam Narrative: Ill appearing elderly white male who appears toxic but not in acute respiratory distress, not using accessory muscles Lungs: course bilateral expiratory wheezing and rhonchi Heart: RRR, Abdomen: soft, nontender Extremities; no edma or tenderness Objective Last Vital Signs Temp 36 C L 10/06/21 15:52 Pulse 63 10/06/21 15:52 Resp 22 10/06/21 15:52 BP 120/51 L 10/06/21 15:52 Pulse Ox 95 10/06/21 15:52 Laboratory Results - last 24 hr 10/05/21 10/06/21 10/06/21 18:12 03:37 03:37 WBC 11.17 H RBC 4.50 Hgb 13.4 L Hct 40.5 MCV 90 MCH 29.8 MCHC 33.1 RDW 13.2 Plt Count 200 MPV 11.3 H Immature Gran % 0.6 Neutrophils % 82.8 Lymphocytes % 7.7 Monocytes % 8.6 Eosinophils % 0.0 Basophils % 0.3 Nucleated RBC % 0.0 Absolute Neutrophils 9.25 H Absolute Lymphocytes 0.86 L Absolute Monocytes 0.96 H Absolute Eosinophils 0.00 Absolute Basophils 0.03 PT INR Sodium 136 Potassium 3.7 Chloride 102 Carbon Dioxide 27.9 Anion Gap 6.1 BUN 21 H Creatinine 1.5 H Estimated GFR/1.73 m2 45.26 Glucose 210 H Calcium 8.5 Total Bilirubin 0.5 AST 11 L ALT 15 L Alkaline Phosphatase 62 Total Protein 7.1 Albumin 3.1 L Procalcitonin 0.1 10/06/21 06:54 WBC RBC Hgb Hct MCV MCH MCHC RDW Plt Count MPV Immature Gran % Neutrophils % Lymphocytes % Monocytes % Eosinophils % Basophils % Nucleated RBC % Absolute Neutrophils Absolute Lymphocytes Absolute Monocytes Absolute Eosinophils Absolute Basophils PT 17.1 H INR 1.7 H Sodium Potassium Chloride Carbon Dioxide Anion Gap BUN Creatinine Estimated GFR/1.73 m2 Glucose Calcium Total Bilirubin AST ALT Alkaline Phosphatase Total Protein Albumin Procalcitonin
[2021-10-06 20:55] VITALS: BP 128/78; PULSE 86; RESP 18; TEMP 36.2; O2SAT 95
[2021-10-06] MEDS: guaiFENesin 600 MG TABCR PO (21:09)
[2021-10-06] MEDS: Warfarin 5 MG TAB 2.5 MG PO (21:09)
[2021-10-06] MEDS: Aspirin 81 MG CHEW PO (21:10)
[2021-10-06] MEDS: DULoxetine 30 MG CAP PO (21:10)
[2021-10-06] MEDS: Dexamethasone 4 MG/ML VIAL 6 MG IVP (21:11)
[2021-10-06] MEDS: cefTRIAXone 1 GM/50 ML BAG 100 GM (21:13)
[2021-10-07] VITALS (11 sets, daily range): BP systolic 118–147; BP diastolic 61–79; PULSE 62–100; RESP 15–19; TEMP 36.1–36.8; O2SAT 91–95
[2021-10-07] MEDS: Levothyroxine 175 MCG TAB PO (05:49)
[2021-10-07 06:53] LABS: Abs Immature Grans 0.08 10^3/uL (0.0-0.06); Absolute Basophil Count 0.02 10^3/uL (0.0-0.2); Absolute Lymphocyte Count 0.75 10^3/uL (1.2-3.4); Absolute Monocyte Count 0.26 10^3/uL (0.1-0.8); Basophils % 0.2; HCT 42.6 % (40.0-50.0); HGB 14.2 g/dL (13.5-17.5); Immature Grans % 0.9; Lymphocytes % 8.7; MCH 29.8 pg (27.0-33.0); MCHC 33.3 % (32.0-36.0); MCV 90 fL (80-95); MPV 11.5 fL (8.0-11.0); Neutrophils % 87.2; Platelet Count 231 10^3/uL (130-400); RBC 4.76 10^6/uL (4.36-5.78); RDW-SD 42.9 fL; WBC 8.61 10^3/uL (4.4-10.8)
[2021-10-07 07:12] LABS: ALT 12 U/L (16-63); AST 13 U/L (15-37); Albumin 3.3 g/dL (3.4-5.0); Alkaline Phosphatase 60 U/L (46-116); Anion Gap 8.3 mmol/L (3-11); BUN 26 mg/dL (7-18); Bilirubin, Total 0.5 mg/dL (0.2-1.0); C-Reactive Protein 2.71 mg/dL (0.0-0.3); CO2 26.7 mmol/L (21.0-32.0); CREATININE 1.4 mg/dL (0.70-1.30); Calcium 8.6 mg/dL (8.5-10.1); Chloride 102 mmol/L (98-107); Estimated GFR 49.01 (mL/min/1.73m2); Glucose 229 mg/dL (74-106); Potassium 4.3 mmol/L (3.5-5.1); Sodium 137 mmol/L (136-145); Total Protein 7.3 g/dL (6.4-8.2)
[2021-10-07 07:23] LABS: INR 1.8 (0.9-1.1); Prothrombin Time 17.7 sec (9.3-11.0)
[2021-10-07 07:37] LABS: Ferritin 362 ng/mL (26-388)
[2021-10-07] MEDS: Ipratropium/Albuterol 4 GM 120 PUFF INH IH ×4 (07:47→21:38)
[2021-10-07] MEDS: Metoprolol CR 100 MG TABCR PO ×2 (07:53→21:37)
[2021-10-07] MEDS: Dexamethasone 4 MG TAB 6 MG PO (07:53)
[2021-10-07] MEDS: amLODIPine 10 MG TAB PO (07:56)
[2021-10-07] MEDS: guaiFENesin 600 MG TABCR PO ×2 (07:56→21:37)
[2021-10-07] MEDS: Furosemide 20 MG TAB 10 MG PO (07:57)
[2021-10-07] MEDS: Normal Saline Flush 10 ML SYR IVP ×2 (08:01→21:38)
[2021-10-07] MEDS: REMDESIVIR 100 MG in Normal Saline 250 ML 250 MG IVPB (08:18)
[2021-10-07] MEDS: Dofetilide 250 MCG CAP 500 MCG PO ×2 (09:41→21:35)
--- NOTE | 2021-10-07 11:25 | PDOC.CMPRO ---
- If Service Date Differs Date of service: 10/07/21 Time of Service: 11:25 Care Management Progress Note S/O: Sukhdev remains in COVID isolation he remains on remdesivir and will start decadron now that he is requiring oxygen; per MD. He will be evaluated by PT for discharge recommendations as well. CM continues to follow. A: 76 year old male admitted to [facility] 10/05/21 for COVID 19 Infection, Generalized weakness P: Anticipate Sukhdev will return home with no additional services, when ready per MD. He will be evaluated by PT and continue to be monitored by RT; if additional services are recommended upon discharge, CM will support coordination. He will follow up with his PCP and plan of care as prescribed. He will transport via private vehicle with his daughter.
[2021-10-07] MEDS: Acetaminophen 325 MG TAB 650 MG PO (17:02)
--- NOTE | 2021-10-07 17:44 | PGE_ITS ---
Date of Service Date of service: 10/07/21 Time of Service: 16:44 Assessment and Plan Assessment and plan (1) COVID-19 virus infection: Status: Acute Assessment and plan: continue Remdesivir (day 3 of 3), I will renew his decadron since he is now requiring oxygen. Encourage cough and deep breathing, use of I.S. and acapella. Ceftriaxone added for concomittant bronchitis. CXR did not show any pneumonic consolidations. continue other meds for COVID-19. Already on a statin and anticoagulated w/ warfarin. (2) CAD (coronary artery disease): Status: Acute Assessment and plan: No symptoms of chest pain. Troponin levels have been normal. We will continue to monitor him on telemetry while hospitalized. (3) Atrial fibrillation: Status: Active Assessment and plan: Currently in sinus rhythm but atrial pacing at times. Continue to my monitor him and continue his antidysrhythmic's which includes to dofetilide and metoprolo XL (4) Essential hypertension: Status: Acute Assessment and plan: Continue furosemide and amlodipine to continue her Toprol-XL. (5) Hypothyroidism: Status: Active Assessment and plan: Continue levothyroxine (6) Obstructive sleep apnea syndrome: Status: Active Assessment and plan: We will ask respiratory therapy to apply CPAP at night (7) Generalized weakness: Status: Acute Assessment and plan: Consult physical therapy in the morning to evaluate strength and amatory function. Subjective Subjective Interval history since last seen: Sukhdev states that his cough is somewhat better today. Certainly his oxygenation has improved he is down to 1 L/min per nasal cannula. He is not hav ing the paroxysms of coughing like he had yesterday. Exam Narrative Exam Narrative: Elderly white male sitting up in his bed. He is alert and oriented person place time circumstance. He is able to talk in complete sentences without becoming dyspneic. Neck supple without JVD no accessory respiratory muscle use. Lungs are clear Heart regular rate and rhythm Extremities without peripheral cyanosis or edema Abdomen soft and nontender nondistended. Objective Last Vital Signs Temp 36.3 C L 10/07/21 15:52 Pulse 79 10/07/21 15:52 Resp 18 10/07/21 15:52 BP 135/79 10/07/21 15:52 Pulse Ox 93 10/07/21 15:52 Laboratory Results - last 24 hr 10/07/21 10/07/21 10/07/21 06:10 06:10 06:10 WBC 8.61 RBC 4.76 Hgb 14.2 Hct 42.6 MCV 90 MCH 29.8 MCHC 33.3 RDW 13.0 Plt Count 231 MPV 11.5 H Immature Gran % 0.9 Neutrophils % 87.2 Lymphocytes % 8.7 Monocytes % 3.0 Eosinophils % 0.0 Basophils % 0.2 Nucleated RBC % 0.0 Absolute Neutrophils 7.50 H Absolute Lymphocytes 0.75 L Absolute Monocytes 0.26 Absolute Eosinophils 0.00 Absolute Basophils 0.02 PT 17.7 H INR 1.8 H Sodium 137 Potassium 4.3 Chloride 102 Carbon Dioxide 26.7 Anion Gap 8.3 BUN 26 H Creatinine 1.4 H Estimated GFR/1.73 m2 49.01 Glucose 229 H Calcium 8.6 Ferritin 362 Total Bilirubin 0.5 AST 13 L ALT 12 L Alkaline Phosphatase 60 C-Reactive Protein 2.71 H Total Protein 7.3 Albumin 3.3 L
--- NOTE | 2021-10-07 19:03 | RESPIRATORY ---
Pt has own [employer]Med AirSense 11 Auto-CPAP machine. Min 14 / Max 18 Normally uses no O2 bleed in. DME: [employer].
[2021-10-07] MEDS: DULoxetine 30 MG CAP PO (21:34)
[2021-10-07] MEDS: Aspirin 81 MG CHEW PO (21:35)
[2021-10-07] MEDS: Warfarin 5 MG TAB PO (21:36)
[2021-10-07] MEDS: Rosuvastatin 5 MG TAB 2.5 MG PO (21:36)
[2021-10-07] MEDS: cefTRIAXone 1 GM/50 ML BAG IVPB (21:38)
[2021-10-07] MEDS: Fluticasone NASAL SPRAY 16 GM BTL NS (21:39)
[2021-10-08 00:55] VITALS: BP 140/62; PULSE 66; RESP 18; TEMP 36.7; O2SAT 94
[2021-10-08 04:02] VITALS: BP 124/69; PULSE 79; RESP 17; TEMP 36.2; O2SAT 93
[2021-10-08] MEDS: Levothyroxine 175 MCG TAB PO (05:04)
[2021-10-08 06:59] LABS: Abs Immature Grans 0.17 10^3/uL (0.0-0.06); Absolute Monocyte Count 1.04 10^3/uL (0.1-0.8); Absolute Neutrophil Count 10.21 10^3/uL (1.2-6.7); Basophils % 0.2; HCT 42.2 % (40.0-50.0); HGB 14.2 g/dL (13.5-17.5); Immature Grans % 1.3; Lymphocytes % 9.5; MCH 29.8 pg (27.0-33.0); MCHC 33.6 % (32.0-36.0); MCV 89 fL (80-95); MPV 11.2 fL (8.0-11.0); Monocytes % 8.2; Neutrophils % 80.8; Platelet Count 234 10^3/uL (130-400); RBC 4.76 10^6/uL (4.36-5.78); RDW-SD 42.6 fL; WBC 12.64 10^3/uL (4.4-10.8)
[2021-10-08 07:09] LABS: Absolute Basophil Count 0.03 10^3/uL (0.0-0.2)
[2021-10-08 07:11] LABS: INR 1.9 (0.9-1.1); Prothrombin Time 18.7 sec (9.3-11.0)
[2021-10-08 07:13] LABS: ALT 12 U/L (16-63); AST 11 U/L (15-37); Albumin 3.2 g/dL (3.4-5.0); Alkaline Phosphatase 61 U/L (46-116); Anion Gap 6.7 mmol/L (3-11); BUN 29 mg/dL (7-18); Bilirubin, Total 0.4 mg/dL (0.2-1.0); C-Reactive Protein 1.29 mg/dL (0.0-0.3); CO2 27.3 mmol/L (21.0-32.0); CREATININE 1.5 mg/dL (0.70-1.30); Calcium 8.7 mg/dL (8.5-10.1); Chloride 102 mmol/L (98-107); Estimated GFR 45.26 (mL/min/1.73m2); Glucose 247 mg/dL (74-106); Potassium 4.2 mmol/L (3.5-5.1); Sodium 136 mmol/L (136-145); Total Protein 7.1 g/dL (6.4-8.2)
[2021-10-08 07:40] LABS: Procalcitonin < 0.1 ng/mL
[2021-10-08] MEDS: Ipratropium/Albuterol 4 GM 120 PUFF INH IH ×2 (07:52→12:01)
[2021-10-08 08:04] VITALS: BP 121/79; PULSE 64; RESP 14; TEMP 36.1; O2SAT 93
[2021-10-08] MEDS: Metoprolol CR 100 MG TABCR PO (08:34)
[2021-10-08] MEDS: amLODIPine 10 MG TAB PO (08:34)
[2021-10-08] MEDS: guaiFENesin 600 MG TABCR PO (08:34)
[2021-10-08] MEDS: Furosemide 20 MG TAB 10 MG PO (08:35)
[2021-10-08] MEDS: Dexamethasone 4 MG TAB 6 MG PO (08:35)
[2021-10-08] MEDS: Fluticasone NASAL SPRAY 16 GM BTL NS (08:37)
[2021-10-08] MEDS: REMDESIVIR 100 MG in Normal Saline 250 ML 250 MG IVPB (08:40)
[2021-10-08] MEDS: Normal Saline Flush 10 ML SYR IVP (08:41)
[2021-10-08] MEDS: Acetaminophen 325 MG TAB 650 MG PO (08:56)
[2021-10-08 09:00] LABS: Ferritin 353 ng/mL (26-388)
[2021-10-08] MEDS: Dofetilide 250 MCG CAP 500 MCG PO (10:41)
[2021-10-08 11:15] VITALS: PULSE 80; PULSE 84; RESP 16; O2SAT 91; O2SAT 95
[2021-10-08 12:02] VITALS: BP 117/68; PULSE 68; RESP 14; TEMP 36.2; O2SAT 96
--- NOTE | 2021-10-08 14:55 | W.PM.DS.N ---
Date of service: 10/08/21 Time of Service: 21:00 DS: Diagnosis Discharge Diagnosis (1) COVID-19 virus infection: Status: Acute Asessment and Plan: Patient was treated with Remdesivir 200 mg IV on the day of admission as well as 100 mg IV daily from 10/06/2021 through 10/08/2021. He was treated with supplemental oxygen as well as Decadron. He was put on Rocephin for an acute purulent bronchitis. He was given bronchodilator MDIs. He was given use of an incentive spirometer as well as Acapella device to mobilize his sputum. No sputum cultures were obtainable. He was put on mucolytic's including Mucinex and treated with cough suppressants including Tessalon as well as Tussionex. He showed improvement in his oxygen status and on the day of discharge was ambulated around his room on room air had no desaturation below 91%. He was feeling markedly better his cough and improved and he was desiring to return home.Patient was discharged home on a 5-day course of Augmentin 875 mg twice a day. He was sent home on an albuterol inhaler as well as on Tussionex cough syrup 5 mL p.o. twice daily. Cough and Tessalon Perles 100 mg p.o. twice daily as needed cough. He was given a prescription for pulse oximeter. Patient will follow up with his primary care provider Dr. Paul Spauldnig in the next week. (2) CAD (coronary artery disease): Status: Acute (3) Atrial fibrillation: Status: Active (4) Essential hypertension: Status: Acute (5) Hypothyroidism: Status: Active (6) Obstructive sleep apnea syndrome: Status: Active (7) Generalized weakness: Status: Resolved Discharge Plan Disposition Patient Disposition: HOME Condition: Improving Discharge Details Reason For Visit: COVID 19 Infection,Generalized Weakness Admit Date/Time: 10/05/21 14:19 Admit Provider: Luc Kumari Attending Provider: Luc Kumari Primary Care Provider: Paul Spaulding Home Meds and New Rx's Prescriptions: New benzonatate 100 mg capsule 100 mg PO BID PRNQty: 14 0RF hydrocodone-chlorpheniramine 10-8 mg/5 mL suspension,extended rel 12 hr 5 ml PO Q12H PRNQty: 70 0RF amoxicillin-pot clavulanate 875-125 mg tablet 1 ea PO BID AC Qty: 10 0RF Rx Instructions: take twice per day with meals x 14 days albuterol sulfate 90 mcg/actuation aerosol powdr breath activated 2 inh inhalation QID PRNQty: 1 0RF Continued aspirin [Aspirin Low-Strength] 81 MG tablet,chewable 81 mg PO DAILY amlodipine 10 MG tablet 10 mg PO DAILY Qty: 90 3RF dofetilide 500 MCG capsule 500 mcg PO Q12H Qty: 60 12RF duloxetine 30 mg capsule,delayed release(DR/EC) 30 mg PO DAILY levothyroxine 175 mcg capsule 175 mcg PO DAILY metoprolol succinate [Toprol XL] 100 MG tablet extended release 24 hr 250 mg PO DAILY warfarin [Coumadin] 5 MG tablet 2.5 mg PO DIRECTED Label Comments: 5mg Sun; 2.5mg [id number]-Sun rosuvastatin [Crestor] 5 mg tablet 2.5 mg PO EVERY OTHER DAY Label Comments: CUT DOSE HIMSELF TO 2.5MG QOD furosemide [Lasix] 20 mg Tablet 10 mg PO DAILY Discharge Instructions Instructions: COVID-19 (Coronavirus Disease 2019) (DC), COVID-19: Slow the Coronavirus Spread (DC), Face Coverings (Masks) and COVID-19 (DC) Additional Instructions: You were treated for an acute COVID-19 infection. You did not have evidence of pneumonia on your chest x-ray. However you did have evidence of bronchitis. You were treated with IV antibiotics including ceftriaxone. You should finish out a course of oral antibiotics which includes Augmentin (amoxicillin/clavulanate) 875 mg twice a day for 5 more days. You should use the albuterol inhaler that you were given from the hospital as needed for wheezing or shortness of breath. Use 2 puffs every 4-6 hours as needed. You are being prescribed a pulse oximeter to machine operator hop picker at your pharmacy to monitor your oxygen level. Your oxygen saturation should stay above 90% at all times. If you are finding that it is persistently below 90% please notify your provider or go to the nearest emergency room. You were treated for COVID-19 with an antiviral called remdesivir. You should not need further treatment for the COVID-19 however you are still considered infectious for 10 days from the onset of your infection. Your nasal swab was positive on October 05, 2021 and you should remain in isolation through October 15, 2021. Upon return to the public please wear a mask to protect yourself from others. Make sure that you remain fully boosted following CDC guidelines. It is recommended that you remain physically active and up out of bed is much as possible. When you are lying in bed try to avoid lying flat on your back as this tends to cause atelectasis in the lungs and can lead to pneumonia. Stand Alone Forms: Nursing Discharge Form Referrals: Paul Spaulding MD [Primary Care Provider] - (Please call the office on Sunday morning to schedule an appointment to be seen in 1-2 weeks) Activity:: Activity as Tolerated Equipment/Supplies:: No Equipment Needed Diet:: Low Sodium Discharge Orders Discharge Orders: Discharge Order (Routine); Ordered 10/08/21 Ordered By: Luc Kumari Discharge Data Discharge Date/Time-TO BE ENTERED AT DEPARTURE: 10/08/21 15:20 DS: Summary Time Spent with Patient providing and/or coordinating discharge services: Less than 30 minutes Specific discharge activities: Interview/exam of patient; review of discharge instructions, completion of prescriptions/discharge instructions; discussion w/ nursing and CM; documentation of hospital visit Status at Discharge Functional status at discharge: independent ambulation Overall status at discharge: patient is progressing back to baseline Mental Status: mental status grossly normal Speech and Movement: speech and movement normal Mood: congruent mood Affect: normal affect Exam Narrative Exam Narrative: Mr. Vazquez is sitting up at the bedside he is fully dressed. He denies any shortness of breath or chest discomfort. Cough is markedly improved and is no longer productive any purulent sputum. He is no longer having paroxysms of coughing. Respiratory care get an amatory pulse oximetry in the room Pulse oximetry at rest was 95% on room air he dropped to as low as 91% but then recovered to 95%. Patient does not require any oxygen with discharge. Lungs are clear to auscultation with prolonged expiratory phase no rhonchi or wheezing Heart regular rate and rhythm Abdomen obese soft nontender Extremities without peripheral cyanosis or edema Psych Mental Status: mental status grossly normal Speech and Movement: speech and movement normal Mood: congruent mood Affect: normal affect DS: Data Vitals/I&O Vitals and I&O: Vital Signs Temperature 36.2 C L 05/21/22 12:02 Temperature Source Tympanic 10/08/21 12:02 Pulse 68 10/08/21 12:02 Pulse Rhythm Regular 10/08/21 08:00 Pulse 66 10/05/21 14:50 Respiratory Rate 14 10/08/21 12:02 Respiratory Effort Non-Labored 10/08/21 08:00 Respiratory Depth Normal 10/08/21 08:00 Respiratory Pattern Normal 10/08/21 08:00 Blood Pressure 117/68 10/08/21 12:02 Blood Pressure Mean 93 10/05/21 14:45 Blood Pressure Position Sitting 10/05/21 11:31 Pulse Oximetry 96 10/08/21 12:02 Oxygen Delivery Method Room Air 10/08/21 12:02 Oxygen Flow Rate 0 10/08/21 12:02 Pain Level 0 10/08/21 12:02 Intake & Output 10/07/21 10/08/21 10/08/21 23:59 11:59 23:59 Intake Total 360 / 970 250 / 610 360 / 610 Balance 360 / 970 250 / 610 360 / 610 Intake: IV 250 / 250 Oral 360 / 720 360 / 360 Other: Comment voiding independently voiding independently Data Completed and Pending Labs on day of discharge: Labs from last 24 hours 10/08/21 10/08/21 10/08/21 06:40 06:40 06:40 WBC 12.64 H RBC 4.76 Hgb 14.2 Hct 42.2 MCV 89 MCH 29.8 MCHC 33.6 RDW 13.0 Plt Count 234 MPV 11.2 H Immature Gran % 1.3 Neutrophils % 80.8 Lymphocytes % 9.5 Monocytes % 8.2 Eosinophils % 0.0 Basophils % 0.2 Nucleated RBC % 0.0 Absolute Neutrophils 10.21 H Absolute Lymphocytes 1.20 Absolute Monocytes 1.04 H Absolute Eosinophils 0.00 Absolute Basophils 0.03 PT INR Sodium 136 Potassium 4.2 Chloride 102 Carbon Dioxide 27.3 Anion Gap 6.7 BUN 29 H Creatinine 1.5 H Estimated GFR/1.73 m2 45.26 Glucose 247 H Calcium 8.7 Ferritin 353 Total Bilirubin 0.4 AST 11 L ALT 12 L Alkaline Phosphatase 61 C-Reactive Protein 1.29 H Total Protein 7.1 Albumin 3.2 L Procalcitonin < 0.1 10/08/21 06:40 WBC RBC Hgb Hct MCV MCH MCHC RDW Plt Count MPV Immature Gran % Neutrophils % Lymphocytes % Monocytes % Eosinophils % Basophils % Nucleated RBC % Absolute Neutrophils Absolute Lymphocytes Absolute Monocytes Absolute Eosinophils Absolute Basophils PT 18.7 H INR 1.9 H Sodium Potassium Chloride Carbon Dioxide Anion Gap BUN Creatinine Estimated GFR/1.73 m2 Glucose Calcium Ferritin Total Bilirubin AST ALT Alkaline Phosphatase C-Reactive Protein Total Protein Albumin Procalcitonin PFSH All Active Problems COVID-19 virus infection (Acute) Iliotibial band syndrome affecting left lower leg (Acute) Low back pain (Acute) Elevated PSA (Acute) Degenerative arthritis of lumbar spine (Acute) Trochanteric bursitis of left hip (Acute) Tendonitis of left rotator cuff (Acute) Right rotator cuff tendonitis (Acute) Tinnitus, bilateral (Acute) 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, bilateral (Acute) Sleep apnea (Acute 11/19/14) Sinus node dysfunction (Acute 11/19/14) Paroxysmal atrial fibrillation (Acute 11/19/14) Obesity (Acute 11/19/14) Nonsustained ventricular tachycardia (Acute 02/16/17) intermediate accountant current use of antiarrhythmic medical therapy (Acute 04/07/16) Hx of CABG (Acute 11/19/14) Essential hypertension (Acute 12/06/15) Chronic anticoagulation (Acute 04/07/16) Cardiac pacemaker in situ (Acute 01/29/15) CAD (coronary artery disease) (Acute 11/19/14) Benign hypertension (Active) Atrial fibrillation (Active 12/10/12) Coronary arteriosclerosis (Active) Obstructive sleep apnea syndrome (Active) History of - coronary artery bypass grafting (Active) CABG x 3. GA age 50. Family hx CAD -brother age 50, father age 45 and mother age 62 all dying from MIs. Stress MIBI done September 2012 negative. Echocardiogram with normal ejection fraction in September 2012 Osteoarthritis (Active) Chronic bronchitis (Active) Psoriasis (Active) Herniation of nucleus pulposus (Active) L4,5 History of smoking-35 pack year-quit 1996 (Active) AAA repaired in 2005. 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 [facility] Aneurysm of popliteal artery (Active) Monitored annually by Dr. Almaguer. 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 Coronary Artery Bypass Gaft (CABG) ANDRADE-LAD x2, SVG-Diag1 Coronary Stent 1996 Endovascular AAA repair 2005 Pacemaker 2015 TKA Family History Father Heart disease Mother Heart disease Brother No problems noted. Brother No problems noted. Sister No problems noted. Son History of blood clots Daughter Diverticulitis Thyroid disease Daughter No problems noted. 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
--- NOTE | 2021-10-08 17:52 | PDOC.CMDIS ---
- If Service Date Differs Date of service: 10/08/21 Time of Service: 17:52 LACE Index Scoring Tool - Questions: Length of Stay (in days): 3 Acuity (Admit via E.D.?): Yes Comorbidities: Liver or Renal Disease E.D. Visits: 1 - Answers: Total Score: 12 Risk of Readmission: High Risk Care Management Discharge Reason for Hospitalization: COVID-19 Infection, Generalized weakness Discharge Plan: Sukhdev is discharged home with no services. He will follow up with his PCP and discharge plan of care as instructed. He is transported home via private vehicle by family. Patient/Family Education Needs: Review of discharge instructions.
--- NOTE | 2021-10-10 19:00 | PT.INDS ---
Date of service: 10/10/21 PT Notes Visit Reasons: COVID 19 Infection,Generalized Weakness Physical Therapy Inpatient Discharge Summary Date: 10/06/2021 Referring Doctor:? Luc Kumari MD PT Orders: PT CONSULT: Exacerbation Chroninc Cond Precautions: Fall. Standard. Activity as tolerated. Patient Profile/Admitting Diagnosis:? Nina is a 76-year-old male who presented to the ED on 10/05/2022 with increasing short of breath, fatigue, and confusion.? Patient is diagnosed with COVID-19 virus infection, coronary artery disease, atrial fibrillation, essential hypertension, hypothyroidism, JEFERSON, and generalized weakness. PMHX: All Active Problems?(Updated 10/05/21 @ 19:13 by Luc Kumari) Generalized weakness (Acute) COVID-19 virus infection (Acute) Iliotibial band syndrome affecting left lower leg (Acute) Low back pain (Acute) Elevated PSA (Acute) Degenerative arthritis of lumbar spine (Acute) Trochanteric bursitis of left hip (Acute) Tendonitis of left rotator cuff (Acute) Right rotator cuff tendonitis (Acute) Tinnitus, bilateral (Acute) 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, bilateral (Acute) Sleep apnea (Acute 11/19/14) Sinus node dysfunction (Acute 11/19/14) Paroxysmal atrial fibrillation (Acute 11/19/14) Obesity (Acute 11/19/14) Nonsustained ventricular tachycardia (Acute 02/16/17) rn long term care current use of antiarrhythmic medical therapy (Acute 04/07/16) Hx of CABG (Acute 11/19/14) Essential hypertension (Acute 12/06/15) Chronic anticoagulation (Acute 04/07/16) Cardiac pacemaker in situ (Acute 01/29/15) CAD (coronary artery disease) (Acute 11/19/14) Benign hypertension (Active) Atrial fibrillation (Active 12/10/12) Coronary arteriosclerosis (Active) Obstructive sleep apnea syndrome (Active) History of - coronary artery bypass grafting (Active) CABG x 3. ?[place] age 50. ?Family hx CAD -brother age 50, father age 45 and mother age 62 all dying from MIs.? Stress MIBI done September 2012? negative.? Echocardiogram with normal ejection fraction in September 2012 Osteoarthritis (Active) Chronic bronchitis (Active) Psoriasis (Active) Herniation of nucleus pulposus (Active) L4,5 History of smoking-35 pack year-quit 1996 (Active) AAA repaired in 2005. (Active) Tachybrady syndrome with S/P pacemaker (Active) Aneurysm of iliac artery (Active) [place]. Almaguer [place] [facility] Aneurysm of popliteal artery (Active) Monitored annually by Dr. Almaguer. Chronic renal insufficiency (Active) WQ ith an atrophic, nonfunctioning Peptic ulcer (Active) Hypothyroidism (Active) Medical History? 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 Appendectomy Colonoscopy - IV Sedation 2010- polypColonoscopy - MAC (11/12/17) Tubular adenoma x3.Coronary Artery Bypass Gaft (CABG) ANDRADE-LAD x2, SVG-Diag1 Coronary Stent 1996 Endovascular AAA repair 2005 Pacemaker 2015 TKA Social History/Home Situation: Lives alone on the first floor of an senior apartment living facility with no steps to enter.? Independent with all aspects of ADLs without adaptive or assistive device. Equipment Owned/DME: [facility] Subjective: Agreeable to PT consult.? States that he is feeling a lot better than on admission and he feels safe moving about inside his room with a single-point cane.? Denies headache, chest pain, and dizziness throughout session.? Did report some shortness of breath after ambulation activity that subsided with rest. ? Objective: General Observation: Seated at edge of bed.? Oxygen supplementation via NC at 2 L/min.? Mental Status: Alert and oriented as to person, place, time, and purpose. Able to pay attention, focus, and respond appropriately. Pain: Denies Vital Signs:? Oxygen saturation stayed above 92% on 2 L/min during ambulation activity ROM: Right Upper Extremity: ? Shoulder Flexion WFL. Shoulder abduction WFL. Elbow flexion WFL. Wrist flexion WFL. Functional opening and closing of hand WFL. Left Upper Extremity:? Shoulder Flexion WFL. Shoulder abduction WFL. Elbow flexion WFL. Wrist flexion WFL. Functional opening and closing of hand WFL. Right Lower Extremity: Hip flexion WFL. Hip abduction WFL. Knee flexion WFL. Ankle dorsiflexion WFL. Ankle plantarflexion WFL. Left Lower Extremity: Hip flexion WFL. Hip abduction WFL. Knee flexion WFL. Ankle dorsiflexion WFL. Ankle plantarflexion WFL. Strength: Right Upper Extremity: Shoulder flexors 4+/5. Shoulder abductors 4+/5. Elbow flexors 5/5. Elbow extensors 5/5. Cigarette Catcher strong. Left Upper Extremity: Shoulder flexors 4+5. Shoulder abductors 4+/5. Elbow flexors 5/5. Elbow extensors 5/5. Cigarette Catcher strong. Right Lower Extremity: Hip flexors 4+/5. Hip abductors 5/5. Knee flexors 5/5. Knee extensors 5/5. Ankle dorsiflexors 4+/5. Ankle plantarflexors 5/5. Left Lower Extremity: Hip flexors 4+/5. Hip abductors 5/5. Knee flexors 5/5. Knee extensors 5/5. Ankle dorsiflexors 4+/5. Ankle plantarflexors 5/5. Bed Mobility/Transfers: Rolling independent Supine to sit independent Sit to supine independent Sit to stand independent Stand to sit independent Bed to reclining chair independent Reclining chair to bed independent Gait: Instructed patient with level surface ambulation of 60 feet with modified independent. Rebekah slowed down a bit as he started to get fatigued. THERA EX:? Deep breathing exercises incorporated with chest expansion exercises Balance: Static Sitting: Normal Dynamic Sitting: Normal Static Standing: Good Dynamic Standing: Good Special Tests: Mobility Limitations Standardized Measure [facility] 6 clicks Basic Mobility Inpatient Short Form: Raw Score: 24? CMS Score: 0% deficit? ? ? Informed Consent/Education:? Patient was instructed in purpose of PT consult. Assessment: Patient is independent inside room using single-point cane for all transfers and ambulation test performance.? Patient and training on deep breathing exercises incorporated into chest expansion activities was done with patient during the session.? Patient was also instructed to walk inside the room for 80 feet at least twice in the morning and twice in the afternoon in order to maximize functional lung capacity and manitain level of independence.? No skilled services are needed at this time.? PT evaluation only. Patient is assessed [place] a 50480 moderate complexity based on the following: History: 76 [id number]? with past medical history as indicated above Examination: Demonstrable impairment in strength, balance, and mobility level with underlying impairments and functional limitations as exhibited above as well as deficit score of 0% utilizing the [facility] [place] Mobility Inpatient Short Form Presentation: [id number] moderate complexity Goals: N/A PT evaluation only and 1 treatment session for functional mobility training and HEP instruction/training. Plan of Care/Treatment Plan: N/A PT evaluation only and 1 treatment session for functional mobility training and HEP instruction/training. DISCHARGE RECOMMENDATIONS: [X] ? Home with no services.? Home when medically cleared by hospitalist.? No equipment needs at this time. [] ? Home with services [specify] [] ? Home with outpatient PT [] [] ? SNF for continued rehabilitation [] [] ? Early Childhood Worker Care [] [] ? SNF versus LTC based on ability to participate and progress [] TREATMENT CODE/TIME: NC Thank you for the opportunity to participate in the care of this patient. Bree Packer PT, DPT, CLT [facility] [place], [place]
== END 2021-10-08 15:20 | disposition home or self-care (01) | DRG 178 ==
LOC: ER 11:30 → MS 15:24
PROVIDERS: Admitting Provider Internal Medicine; Emergency Provider Student in an Organized Health Care Education/Training Program; PCP Internal Medicine; Visit Provider Internal Medicine
DX: U07.1 COVID-19 (principal); Z68.41 Body mass index [BMI] 40.0-44.9, adult; I72.3 Aneurysm of iliac artery; I72.4 Aneurysm of artery of lower extremity; J42 Unspecified chronic bronchitis; E03.9 Hypothyroidism, unspecified; I12.9 Hypertensive chronic kidney disease with stage 1 through stage 4 chronic kidney disease, or unspecified chronic kidney disease; N18.9 Chronic kidney disease, unspecified; K27.9 Peptic ulcer, site unspecified, unspecified as acute or chronic, without hemorrhage or perforation; E66.9 Obesity, unspecified; Z95.0 Presence of cardiac pacemaker; Z79.01 Long term (current) use of anticoagulants; I25.10 Atherosclerotic heart disease of native coronary artery without angina pectoris; R53.83 Other fatigue; R41.0 Disorientation, unspecified; I48.0 Paroxysmal atrial fibrillation; R97.20 Elevated prostate specific antigen [PSA]; M70.62 Trochanteric bursitis, left hip; Z95.1 Presence of aortocoronary bypass graft; G47.33 Obstructive sleep apnea (adult) (pediatric); I25.2 Old myocardial infarction; M51.26 Other intervertebral disc displacement, lumbar region; I49.5 Sick sinus syndrome; L40.9 Psoriasis, unspecified; Z87.891 Personal history of nicotine dependence
CPT/HCPCS: 36415; 80053; 82550; 84145; 86900; 86901; 87637; 94640; 96365; 96374; 97162; 99285; 71045; 82728; 83615; 83735; 83880; 84484; 85025; 85379; 85610; 85730; 86140; 94668; 99222; 99231; 99232; 99238; J0248; J0696; J1100; J3490; J7620; J8540

== ENCOUNTER → 2021-12-02 10:01 | Outpatient (BNVA) | payer MEDICARE, SELFPAY | PROVIDERS: PCP Internal Medicine; Referring Provider Internal Medicine; Visit Provider Urology | DX: R39.12 Poor urinary stream (principal); R97.20 Elevated prostate specific antigen [PSA] | CPT/HCPCS: 99214 ==

== ENCOUNTER 2021-12-08 01:35 | Outpatient (CLI) | payer MEDICARE, SELFPAY ==
[2021-12-08 22:41] LABS: PSA, Diagnostic 14.8 ng/mL (<=6.5)
== END 2021-12-08 01:36 | disposition home or self-care (01) ==
LOC: LBO 01:35
PROVIDERS: PCP Internal Medicine; Visit Provider Urology
DX: R97.20 Elevated prostate specific antigen [PSA] (principal)
CPT/HCPCS: 36415; 84153

== ENCOUNTER 2021-12-08 02:19 | Outpatient (CLI) | payer MEDICARE, SELFPAY ==
--- NOTE | 2021-12-08 13:00 | NS.NUTBLAN_ITS ---
Sukhdev was referred to diabetes self management education and weight management education. 76yo 69.5 inches, 292 lbs, BMI: 43 A1C: 7.0% no DM meds Diet Recall: toast with egg for B, Lunch: sandwich, Dinner: well balanced Walks daily 30 min Session today focused on how to count carbs and balance carb during day. Educated Sukhdev on how to follow a diet low in simple carbs and focus on complex carbs, lean protein and healthy fats. Reviewed meal plans and cooking methods. Very receptive to information. Goal: 10% weight loss in next 90 days Recommend follow up if needs further assistance with weight loss for glycemic management.
== END 2021-12-08 02:20 | disposition home or self-care (01) ==
LOC: DS 02:19
PROVIDERS: PCP Internal Medicine; Visit Provider Dietitian, Registered
DX: E11.9 Type 2 diabetes mellitus without complications (principal); E66.8 Other obesity; Z68.41 Body mass index [BMI] 40.0-44.9, adult; Z71.3 Dietary counseling and surveillance
CPT/HCPCS: 97802

== ENCOUNTER 2022-05-24 17:35 | Outpatient (REF) | payer MEDICARE, SELFPAY ==
[2022-05-25 09:18] LABS: PSA, Diagnostic 14.8 ng/mL (<=6.5)
== END 2022-05-24 17:36 | disposition home or self-care (01) ==
LOC: NCHCN 17:35
PROVIDERS: PCP Internal Medicine; Visit Provider Family Medicine
DX: R97.20 Elevated prostate specific antigen [PSA] (principal)
CPT/HCPCS: 84153

== ENCOUNTER → 2022-06-02 10:30 | Outpatient (BNVA) | payer MEDICARE, SELFPAY | PROVIDERS: PCP Internal Medicine; Referring Provider Internal Medicine; Visit Provider Urology | DX: R97.20 Elevated prostate specific antigen [PSA] (principal) | CPT/HCPCS: 99214 ==

== ENCOUNTER 2022-08-18 14:00 | Outpatient (REF) | payer MEDICARE, SELFPAY | END 2022-08-18 14:01 | disposition home or self-care (01) | LOC: NCHCN 14:00 | PROVIDERS: PCP Internal Medicine; Visit Provider Family Medicine | DX: L72.3 Sebaceous cyst (principal) | CPT/HCPCS: 87070; 87205 ==

== ENCOUNTER 2022-08-24 14:05 | Outpatient (REF) | payer MEDICARE, SELFPAY ==
[2022-08-26 12:20] LABS: BUN 32 mg/dL (7-18); CREATININE 1.7 mg/dL (0.70-1.30); Calcium 9.9 mg/dL (8.5-10.1); Glucose 135 mg/dL (74-106); Hemoglobin A1C 6.6 % (<5.7)
[2022-08-26 12:21] LABS: Anion Gap 7.3 mmol/L (3-11); CO2 30.7 mmol/L (21.0-32.0); Calculated LDL 84 mg/dL (<100); Chloride 102 mmol/L (98-107); Cholesterol 191 mg/dL (<200); HDL Cholesterol 39 mg/dL (40-60); Potassium 4.6 mmol/L (3.5-5.1); Sodium 140 mmol/L (136-145); TSH (W/Ref FT4) 44.86 uIU/mL (0.36-3.74); Triglyceride 340 mg/dL (<150)
[2022-08-26 12:23] LABS: FREE T4 0.78 ng/dL (0.76-1.46)
== END 2022-08-24 14:06 | disposition home or self-care (01) ==
LOC: NCHCN 14:05
PROVIDERS: PCP Internal Medicine; Visit Provider Family Medicine
DX: E03.9 Hypothyroidism, unspecified (principal); E11.9 Type 2 diabetes mellitus without complications; I48.0 Paroxysmal atrial fibrillation; E66.9 Obesity, unspecified
CPT/HCPCS: 80048; 80061; 83036; 84439; 84443

== ENCOUNTER 2022-09-24 16:13 | Emergency (ER) | payer MEDICARE, SELFPAY ==
[2022-09-24] VITALS (23 sets, daily range): BP systolic 119–159; BP diastolic 59–79; PULSE 75–90; RESP 13–27; TEMP 37.7; O2SAT 90–98
--- NOTE | 2022-09-24 16:15 | RT.EKG_ITS ---
APPROVED REPORT Exam: Resting ECG Reason for Exam: SOB/chest pain Patient Location: E HR:80 bpm ECG Measurements Heart Rate 80 AXIS NM 195 P [id number] QRSd 95 QRS 35 QT 411 T -37 QTc 475 Conclusion Atrial-paced complexes...other complexes also detected Borderline T abnormalities, diffuse leads...T flat/neg atrial paced, consider occassional V paced v PVC
--- NOTE | 2022-09-24 16:30 | DI.RAD_ITS ---
Exam(s) XR PORTABLE CHEST AP EXAM: XR PORTABLE CHEST AP CLINICAL HISTORY: fatigue. TECHNIQUE: 2D digital imaging was performed. COMPARISON: CR XR CHEST 2V PA LATERAL from 11/25/2019 CR XR PORTABLE CHEST AP from 10/05/2021 FINDINGS: Single AP portable view. Again noted are sternotomy wires and a bipolar right subclavian with lead tips in RA and RV, unchange d. Heart size is upper normal. Mediastinum not widened. There is no evidence of pulmonary edema nor obvious pleural effusions. Increased density over the lo wer half the left lung field is unchanged from 1 year ago. Platelike atelectasis noted in the right lung base. IMPRESSION: Left lung findings as above. Recommend nonportable PA and lateral views when clinically possible. Sternotomy. Pacemaker. No pulmonary edema. DATA REPOSITORY: RADIATION DOSE DELIVERED:
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
[2022-09-24 16:55] LABS: Abs Immature Grans 0.08 10^3/uL (0.0-0.06); Absolute Basophil Count 0.08 10^3/uL (0.0-0.2); Absolute Eosinophil Count 0.16 10^3/uL (0.0-0.7); Absolute Neutrophil Count 9.67 10^3/uL (1.2-6.7); Basophils % 0.6; Eosinophils % 1.2; HCT 43.5 % (40.0-50.0); HGB 14.8 g/dL (13.5-17.5); Immature Grans % 0.6; MCH 30.6 pg (27.0-33.0); MCV 90 fL (80-95); MPV 10.9 fL (8.0-11.0); Neutrophils % 74.6; Platelet Count 236 10^3/uL (130-400); RBC 4.84 10^6/uL (4.36-5.78); RDW 13.6 % (11.8-14.1); RDW-SD 44.9 fL; WBC 12.96 10^3/uL (4.4-10.8)
[2022-09-24 16:57] LABS: Absolute Lymphocyte Count 1.56 10^3/uL (1.2-3.4); Absolute Monocyte Count 1.43 10^3/uL (0.1-0.8)
[2022-09-24] MEDS: Clindamycin 150 MG CAP 450 MG PO (16:57)
[2022-09-24 17:13] LABS: INR 1.7 (0.9-1.1); PTT Activated 39.4 sec (21.5-31.9); Prothrombin Time 17.4 sec (9.3-11.0)
--- NOTE | 2022-09-24 17:18 | DI.VRAD_ITS ---
PROCEDURE INFORMATION: Exam: XR Chest Exam date and time: 09/24/2022 4:56 PM Age: 77 years old Clinical indication: Other: Fatigue TECHNIQUE: Imaging protocol: Radiologic exam of the chest. Views: 1 view. COMPARISON: CR XR PORTABLE CHEST AP 10/05/2021 12:21 PM FINDINGS: Tubes, catheters and devices: Right subclavian transvenous pacemaker leads within the right cardiac chambers. Lungs: Minimal right basilar atelectasis. Pleural spaces: Mild left basilar hazy opacity, possibly small left pleural effusion with associated atelectasis. Heart/Mediastinum: Mild cardiomegaly. Vasculature: Atherosclerotic vascular disease. Bones/joints: Changes of prior sternotomy. Multilevel thoracic spine date of disc space narrowing and osteophyte formation. IMPRESSION: Mild left basilar hazy opacity, possibly small left pleural effusion with associated atelectasis. Dictated and Authenticated by: Esa Lunsford MD. Ordering:LUKE Nunez MD
[2022-09-24 17:19] LABS: ALT 10 U/L (16-63); AST 13 U/L (15-37); Albumin 3.3 g/dL (3.4-5.0); Alkaline Phosphatase 60 U/L (46-116); Anion Gap 8.7 mmol/L (3-11); BUN 22 mg/dL (7-18); Bilirubin, Total 0.7 mg/dL (0.2-1.0); CO2 26.3 mmol/L (21.0-32.0); CREATININE 1.8 mg/dL (0.70-1.30); Calcium 9.2 mg/dL (8.5-10.1); Chloride 102 mmol/L (98-107); Estimated GFR 37.82 (mL/min/1.73m2); Glucose 135 mg/dL (74-106); Magnesium 1.8 mg/dL (1.8-2.4); NT-proBNP 1016 pg/mL (<300); Potassium 3.9 mmol/L (3.5-5.1); Sodium 137 mmol/L (136-145); Total Protein 7.7 g/dL (6.4-8.2); Troponin I < 50 ng/L (<or=60)
[2022-09-24 17:35] LABS: FREE T4 1.02 ng/dL (0.76-1.46)
[2022-09-24] MEDS: Furosemide 40 MG/4 ML VIAL IVP (18:17)
== END 2022-09-24 18:37 | disposition home or self-care (01) ==
PROVIDERS: Emergency Provider Emergency Medicine; PCP Internal Medicine
DX: R22.42 Localized swelling, mass and lump, left lower limb (principal); R07.9 Chest pain, unspecified; R06.02 Shortness of breath; R11.0 Nausea; Z95.0 Presence of cardiac pacemaker; R53.83 Other fatigue; R73.03 Prediabetes; I50.9 Heart failure, unspecified
CPT/HCPCS: 80053; 93005; 96374; 99284; 71045; 83735; 83880; 84439; 84443; 84484; 85025; 85610; 85730; 93010; J1940

== ENCOUNTER 2022-09-25 09:51 | Emergency (ER) | payer MEDICARE, SELFPAY ==
[2022-09-25 09:59] VITALS: BP 120/61; PULSE 80; RESP 20; TEMP 36.8; O2SAT 98
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
== END 2022-09-25 10:13 | disposition home or self-care (01) ==
PROVIDERS: Emergency Provider Physician Assistant; PCP Internal Medicine
DX: Z53.21 Procedure and treatment not carried out due to patient leaving prior to being seen by health care provider (principal)

== ENCOUNTER 2022-09-25 15:13 | Outpatient (CLI) | payer MEDICARE, SELFPAY ==
--- NOTE | 2022-09-25 | DI.US_ITS ---
Exam(s) US LOWER EXTREMITY VENOUS LT EXAM: US LOWER EXTREMITY VENOUS LT CLINICAL HISTORY: LT LEG SWELLING, REDNESS, ? DVT, R22.42. TECHNIQUE: Lower extremity venous ultrasound performed using grayscale, color-flow, and spectral Do ppler analysis. COMPARISON: No exams were available for comparison FINDINGS: The common femoral, femoral and popliteal veins demonstrate normal compressibility, augmentation, and color Doppler. The posterior tibial veins are patent. No saphenous vein thrombosis or other superfi cial venous thrombosis is seen. No hematoma or Durand's cyst is seen. Soft tissue edema. Enlarged g roin lymph node consistent with a reactive lymph node. IMPRESSION: Soft tissue edema. Enlarged groin lymph node, consistent with a reactive lymph node. No evidence of DVT. DATA REPOSITORY:
== END 2022-09-25 15:33 ==
LOC: DI 15:13
PROVIDERS: PCP Internal Medicine; Visit Provider Emergency Medicine
DX: R22.42 Localized swelling, mass and lump, left lower limb (principal)
CPT/HCPCS: 93971

== ENCOUNTER 2022-09-29 16:04 | Emergency (ER) | payer MEDICARE, SELFPAY ==
[2022-09-29 16:11] VITALS: BP 114/84; PULSE 87; RESP 18; TEMP 36.6; O2SAT 96
[2022-09-29 17:01] VITALS: BP 136/73; PULSE 64; RESP 16; O2SAT 95
[2022-09-29 17:01] LABS: Abs Immature Grans 0.19 10^3/uL (0.0-0.06); Absolute Basophil Count 0.11 10^3/uL (0.0-0.2); Absolute Eosinophil Count 0.24 10^3/uL (0.0-0.7); Absolute Lymphocyte Count 1.85 10^3/uL (1.2-3.4); Absolute Monocyte Count 0.97 10^3/uL (0.1-0.8); Absolute Neutrophil Count 5.67 10^3/uL (1.2-6.7); Basophils % 1.2; Eosinophils % 2.7; HCT 46.6 % (40.0-50.0); HGB 15.7 g/dL (13.5-17.5); Immature Grans % 2.1; Lymphocytes % 20.5; MCH 30.4 pg (27.0-33.0); MCHC 33.7 % (32.0-36.0); MCV 90 fL (80-95); MPV 10.7 fL (8.0-11.0); Monocytes % 10.7; Neutrophils % 62.8; Platelet Count 312 10^3/uL (130-400); RBC 5.17 10^6/uL (4.36-5.78); RDW 13.4 % (11.8-14.1); RDW-SD 44.8 fL; WBC 9.03 10^3/uL (4.4-10.8)
[2022-09-29] MEDS: cefTRIAXone 1 GM/50 ML BAG IVPB (17:01)
[2022-09-29 17:16] LABS: ALT 18 U/L (16-63); AST 25 U/L (15-37); Albumin 3.7 g/dL (3.4-5.0); Alkaline Phosphatase 65 U/L (46-116); Anion Gap 7.6 mmol/L (3-11); BUN 27 mg/dL (7-18); Bilirubin, Total 0.5 mg/dL (0.2-1.0); C-Reactive Protein 2.62 mg/dL (0.0-0.3); CO2 28.4 mmol/L (21.0-32.0); CREATININE 1.7 mg/dL (0.70-1.30); Calcium 9.9 mg/dL (8.5-10.1); Chloride 102 mmol/L (98-107); Glucose 121 mg/dL (74-106); Sodium 138 mmol/L (136-145); Total Protein 8.9 g/dL (6.4-8.2)
[2022-09-29 17:30] VITALS: BP 122/78; PULSE 58; RESP 20; O2SAT 94
[2022-09-29] MEDS: Furosemide 20 MG TAB PO (17:41)
[2022-09-29 17:53] VITALS: BP 129/72; PULSE 62; RESP 18; TEMP 37; O2SAT 94
[2022-09-29 18:09] LABS: INR 2.3 (0.9-1.1); Prothrombin Time 23.5 sec (9.3-11.0)
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
== END 2022-09-29 17:55 | disposition home or self-care (01) ==
PROVIDERS: Emergency Provider Physician Assistant; PCP Family Medicine
DX: L03.116 Cellulitis of left lower limb (principal); R60.9 Edema, unspecified; N18.9 Chronic kidney disease, unspecified
CPT/HCPCS: 36415; 80053; 96365; 99284; 85025; 85610; 86140; J0696

== ENCOUNTER 2022-10-18 14:37 | Outpatient (CLI) | payer MEDICARE, SELFPAY ==
--- NOTE | 2022-10-18 | DI.RAD_ITS ---
Exam(s) XR CHEST 2V PA LATERAL EXAM: XR CHEST 2V PA LATERAL CLINICAL HISTORY: ABNL PRIOR CXR, R91.8 TECHNIQUE: 2D digital imaging was performed. COMPARISON: CR XR PORTABLE CHEST AP from 10/05/2021 CR,XR XR PORTABLE CHEST AP from 09/24/2022 FINDINGS: HEART: Mildly enlarged, unchanged. Sternal wires and pacemaker noted. Status post CABG. Aorta: Not dilated. PULMONARY VASCULATURE: Normal. LUNGS: Minimal atelectasis versus scarring at the left lung base. Previous exam mention increased de nsity over the left chest. This appears to have been related to portable technique and is not seen o n the current exam.. PLEURAL SPACE: No pleural effusion or pneumothorax. BONE:Degenerative changes with flowing osteophytes in the thoracic spine. IMPRESSION: No acute abnormality. DATA REPOSITORY: RADIATION DOSE DELIVERED:
--- NOTE | 2022-10-18 | DI.US_ITS ---
Exam(s) US LOWER EXTREMITY VENOUS LT EXAM: US LOWER EXTREMITY VENOUS LT CLINICAL HISTORY: LLE SWELLING AND PAIN DESPITE COMPLETING COURSE OF TX FOR CELLULITIS,M79.89. TECHNIQUE: Lower extremity venous ultrasound performed using grayscale, color-flow, and spectral Do ppler analysis. COMPARISON: No exams were available for comparison FINDINGS: The common femoral, femoral and popliteal veins demonstrate normal compressibility, augmentation, and color Doppler. The posterior tibial veins are patent. No saphenous vein thrombosis or other superfi cial venous thrombosis is seen. No hematoma or Durand's cyst is seen. There is edema in the subcutan eous fat of the lower leg. IMPRESSION: Negative lower extremity ultrasound. No evidence of DVT. DATA REPOSITORY:
== END 2022-10-18 14:57 ==
LOC: DI 14:38
PROVIDERS: PCP Family Medicine; Visit Provider Family Medicine
DX: M79.89 Other specified soft tissue disorders (principal); R91.8 Other nonspecific abnormal finding of lung field
CPT/HCPCS: 71046; 93971

== ENCOUNTER 2022-10-18 16:21 | Outpatient (REF) | payer MEDICARE, SELFPAY ==
[2022-10-18 14:26] LABS: Abs Immature Grans 0.05 10^3/uL (0.0-0.06); Absolute Basophil Count 0.09 10^3/uL (0.0-0.2); Absolute Eosinophil Count 0.31 10^3/uL (0.0-0.7); Absolute Lymphocyte Count 1.74 10^3/uL (1.2-3.4); Absolute Monocyte Count 0.95 10^3/uL (0.1-0.8); Basophils % 1.2; Eosinophils % 4.1; HCT 46.1 % (40.0-50.0); HGB 15.5 g/dL (13.5-17.5); Immature Grans % 0.7; Lymphocytes % 23.1; MCH 30.1 pg (27.0-33.0); MCHC 33.6 % (32.0-36.0); MCV 90 fL (80-95); MPV 11.2 fL (8.0-11.0); Monocytes % 12.6; Neutrophils % 58.3; Platelet Count 239 10^3/uL (130-400); RBC 5.15 10^6/uL (4.36-5.78); RDW 14.1 % (11.8-14.1); RDW-SD 46.5 fL; WBC 7.54 10^3/uL (4.4-10.8)
[2022-10-18 14:38] LABS: ALT 14 U/L (16-63); AST 17 U/L (15-37); Alkaline Phosphatase 62 U/L (46-116); Anion Gap 9.6 mmol/L (3-11); BUN 20 mg/dL (7-18); Bilirubin, Total 0.8 mg/dL (0.2-1.0); CO2 26.4 mmol/L (21.0-32.0); CREATININE 1.5 mg/dL (0.70-1.30); Calcium 9.5 mg/dL (8.5-10.1); Chloride 104 mmol/L (98-107); Estimated GFR 47.06 (mL/min/1.73m2); Glucose 125 mg/dL (74-106); NT-proBNP 156 pg/mL (<300); Potassium 4.5 mmol/L (3.5-5.1); Sodium 140 mmol/L (136-145); TSH (W/Ref FT4) 16.98 uIU/mL (0.36-3.74); Total Protein 7.9 g/dL (6.4-8.2)
[2022-10-18 15:00] LABS: FREE T4 1.15 ng/dL (0.76-1.46)
== END 2022-10-18 16:22 | disposition home or self-care (01) ==
LOC: NCHCN 16:21
PROVIDERS: PCP Family Medicine; Visit Provider Family Medicine
DX: L03.90 Cellulitis, unspecified (principal); M79.89 Other specified soft tissue disorders
CPT/HCPCS: 80053; 83735; 83880; 84439; 84443; 85025; 86140

== ENCOUNTER 2022-11-10 12:22 | Outpatient (REF) | payer MEDICARE, SELFPAY ==
[2022-11-10 14:59] LABS: HCT 43.9 % (40.0-50.0); MCH 30.5 pg (27.0-33.0); MCHC 34.2 % (32.0-36.0); MCV 89 fL (80-95); MPV 11.1 fL (8.0-11.0); Platelet Count 229 10^3/uL (130-400); RBC 4.92 10^6/uL (4.36-5.78); RDW 14.1 % (11.8-14.1); RDW-SD 46.2 fL
[2022-11-10 15:19] LABS: C-Reactive Protein 0.13 mg/dL (0.0-0.3); TSH 6.67 uIU/mL (0.36-3.74)
== END 2022-11-10 12:23 | disposition home or self-care (01) ==
LOC: NCHCN 12:22
PROVIDERS: PCP Family Medicine; Visit Provider Family Medicine
DX: I48.0 Paroxysmal atrial fibrillation (principal); M79.89 Other specified soft tissue disorders; E03.9 Hypothyroidism, unspecified
CPT/HCPCS: 85027; 84443; 86140

== ENCOUNTER 2022-11-22 01:34 | Outpatient (CLI) | payer MEDICARE, SELFPAY ==
--- NOTE | 2022-11-22 08:00 | DI.CT_ITS ---
Exam(s) CT LOWER EXTREMITY LT W EXAM: CT LOWER EXTREMITY LT W CLINICAL HISTORY: INFECTION, SKIN AND SOFT TISSUE, L08.89. TECHNIQUE: Imaging Protocol: Axial computed tomography images with coronal and sagittal reformatted images were created and reviewed. Field of view includes the knee through toes. CONTRAST MATERIAL: Intravenous: Omnipaque 350 Contrast volume:100 ml Contrast route:IV - CR XR knee LT 2V AP,lat from 03/18/2018 FINDINGS: Bones: There is a total knee prosthesis. No surrounding abnormal lucencies. Degenerative changes ar e proximal tibial fibular joint with adjacent degenerative cysts.. There is no evidence of fracture or dislocation. Degenerative changes present at ankle. No evidence of osteomyelitis. Soft Tissues: Diffuse subcutaneous edema. No drainable collection. No abnormal soft tissue gas. Arterial system patent. Mild atherosclerotic calcification seen in the popliteal artery. Veins not opacified. IMPRESSION: Soft tissue edema. Unremarkable total knee prosthesis. Degenerative changes at the ankle. RADIATION DOSE DELIVERED: 603.95mGy.cm Total DLP DATA REPOSITORY: All CT scans at this facility are submitted to the National Radiology Data Registry (NRDR) Dose Index Registry (DIR) with the [employer] (A[employer]). RADIATION OPTIMIZATION: All CT scans at this facility use at least one of these dose optimization te chniques: automated exposure control; mA and/or kV adjustment per patient size (includes targeted exa ms where dose is matched to clinical indication); or iterative reconstruction.
[2022-11-22] MEDS: Normal Saline - Diluent 50 ML VIAL IJ (08:05)
[2022-11-22] MEDS: Omnipaque 350 MG/ML 500 ML BTL-Imaging package 100 ML IJ (08:06)
[2022-11-22] MEDS: Normal Saline Flush 10 ML SYR IVP (08:08)
== END 2022-11-22 01:54 ==
LOC: DI 01:34
PROVIDERS: PCP Family Medicine; Visit Provider Family Medicine
DX: L08.89 Other specified local infections of the skin and subcutaneous tissue (principal); M19.072 Primary osteoarthritis, left ankle and foot; Z96.652 Presence of left artificial knee joint
CPT/HCPCS: 73701

== ENCOUNTER 2022-11-22 09:37 | Outpatient (CLI) | payer MEDICARE, SELFPAY | END 2022-11-22 09:38 | disposition home or self-care (01) | PROVIDERS: PCP Family Medicine; Visit Provider Urology | DX: R97.20 Elevated prostate specific antigen [PSA] (principal) | CPT/HCPCS: 36415; 84153 ==

== ENCOUNTER → 2022-12-08 09:45 | Outpatient (BNVA) | payer MEDICARE, SELFPAY | PROVIDERS: PCP Family Medicine; Visit Provider Urology | DX: I10 Essential (primary) hypertension (principal); R97.20 Elevated prostate specific antigen [PSA] | CPT/HCPCS: 99213 ==

== ENCOUNTER 2023-02-21 15:31 | Outpatient (REF) | payer MEDICARE, SELFPAY ==
--- NOTE | 2023-02-21 11:00 | SKI_PTH ---
PATIENT: Sukhdev Vazquez LOC: [facility] U#:[id number] AGE/SX: 77/M ROOM: RE02/21/[address]: Alethea Rodriguez : 1945 BED: DIS: 02/21/2023 SPEC #: [id number] RECD: 02/22/23 12:21 STATUS: ALEXI FLETCHER #: [id number] JLUIS: 02/21/23 11:[address]: Alethea Rodriguez DEPT: Surgical Specimen RECD BY: Elzbieta Bunn Tissues: 1 - SKIN BIOPSY(SHAVE/PUNCH) Procedures: SKIN LEVEL 4 Comments: [id number]
[2023-02-21 16:07] LABS: Hemoglobin A1C 6.8 % (<5.7)
[2023-02-21 16:35] LABS: Anion Gap 7.7 mmol/L (3-11); BUN 28 mg/dL (7-18); CO2 27.3 mmol/L (21.0-32.0); CREATININE 1.6 mg/dL (0.70-1.30); Calcium 9.9 mg/dL (8.5-10.1); Chloride 103 mmol/L (98-107); Estimated GFR 43.56 (mL/min/1.73m2); Glucose 121 mg/dL (74-106); Sodium 138 mmol/L (136-145); TSH (W/Ref FT4) 6.59 uIU/mL (0.36-3.74); Vitamin B12 419 pg/mL (193-986)
[2023-02-21 17:00] LABS: FREE T4 0.94 ng/dL (0.76-1.46)
== END 2023-02-21 15:32 | disposition home or self-care (01) ==
LOC: NCHCN 15:31
PROVIDERS: PCP Family Medicine; Visit Provider Family Medicine
DX: E11.9 Type 2 diabetes mellitus without complications (principal); I10 Essential (primary) hypertension; E03.9 Hypothyroidism, unspecified; E66.9 Obesity, unspecified; N18.31 Chronic kidney disease, stage 3a; Z00.00 Encounter for general adult medical examination without abnormal findings
CPT/HCPCS: 80048; 82607; 83036; 84439; 84443; 88305

== ENCOUNTER → 2023-03-22 11:02 | Outpatient (BNVA) | payer MEDICARE, SELFPAY | PROVIDERS: PCP Family Medicine; Referring Provider Family Medicine; Visit Provider Physical Therapy Assistant | DX: Z12.11 Encounter for screening for malignant neoplasm of colon (principal); Z86.010 Personal history of colon polyps ==

== ENCOUNTER 2023-04-02 07:20 | Day surgery (SDC) | payer MEDICARE, SELFPAY ==
--- NOTE | 2023-04-01 16:16 | W.PM.DSUDISC ---
Date of service: 04/02/23 Time of Service: 10:09 Discharge Plan Disposition Patient Disposition: Home Condition: Good Discharge Details Reason For Visit: screen colonoscopy Attending Provider: Prasanna Portillo Primary Care Provider: Alethea Rodriguez Home Meds and New Rx's Prescriptions: Continued nystatin 100,000 unit/gram ointment 1 applic topical BID Qty: 30 3RF aspirin [Aspirin Low-Strength] 81 MG tablet,chewable 81 mg PO DAILY dofetilide 500 MCG capsule 500 mcg PO Q12H Qty: 60 12RF duloxetine 30 mg capsule,delayed release(DR/EC) 30 mg PO DAILY metformin 500 mg tablet 500 mg PO DAILY metoprolol succinate [Toprol XL] 100 mg tablet extended release 24 hr 100 mg PO BID melatonin 1 mg tablet See Rx Instructions PO HS PRN Rx Instructions: 1 mg at hs and may increase up to 3 mg orally bedtime PRN; levothyroxine 175 mcg capsule 225 mcg PO DAILY warfarin 5 mg tablet 5 mg PO Q OTHER DAY Rx Instructions: on odd numbered days furosemide [Lasix] 20 mg tablet 10 mg PO DAILY rosuvastatin [Crestor] 5 mg tablet 2.5 mg PO EVERY OTHER DAY Patient Comments: CUT DOSE HIMSELF TO 2.5MG QOD warfarin [Coumadin] 5 mg tablet 2.5 mg PO DIRECTED Patient Comments: 5mg Sun; 2.5mg Hbzb-Ladot-Nig-Sun Discontinued bisacodyl [Dulcolax (bisacodyl)] 5 mg tablet,delayed release (DR/EC) 5 mg PO ONCE Qty: 4 0RF Rx Instructions: Take per colonoscopy instructions provided by ordering providers office polyethylene glycol 3350 17 gram/dose powder 17 g PO ONCE Qty: 238 0RF Rx Instructions: Take per colonoscopy instructions provided by ordering providers office Discharge Instructions Instructions: Diverticulosis (GEN), Colorectal Polyps (GEN), Diverticulosis Diet (GEN) Additional Instructions: Sukhdev, we were able to complete your colonoscopy today without any difficulty. In total, I found 4 polyps. All were quite small. I removed these all completely. Once I have the results of the pathology report I will be in touch with any other recommendations. Incidentally, you also have a fair amount of diverticulosis. Diverticula are weak spots that occur in the colon wall that typically accumulate with age. The best way to take care of them is to maintain a balanced diet that is rich in fiber. I have attached some information here regarding diverticulosis and its typical management 1. If tolerated, consume a soft, low fiber diet for 1-2 days. 2[address] Do not drive, drink alcohol, operate machinery, make critical decisions, or do activities that require coordination or balance for 24 hours. 3. Because air was put into your colon during the procedure, expelling air from your rectum (passing gas or farting) is normal. 4. You may not have a bowel movement for 1-3 days because of the colonoscopy prep. This is normal. 5. Go directly to the emergency room if you notice any of the following: Develop chills (warm to touch), or if you have a thermometer and your temperature is above 101 Difficulty breathing or difficultly swallowing Persistent vomiting Severe abdominal pain, other than gas cramps Severe chest pain Black, tarry stools Any bleeding ? exceeding one tablespoon 6. Call your physician if the site where your intravenous was started becomes red, swollen, painful, and warm to touch. 7. Your physician has reviewed your pre-procedure medications. Please continue to take those medications as previously ordered. You will be given specific information/education regarding any changes to your medications before leaving. Activity:: Activity as Tolerated Diet:: As Tolerated Discharge Orders Discharge Orders: Discharge Order (Routine); Ordered 04/01/23 Ordered By: Prasanna Portillo DS: Diagnosis Discharge Diagnosis (1) Screen for colon cancer: Status: Acute Asessment and Plan: Follow-up on polypectomy results
--- NOTE | 2023-04-01 16:18 | W.COLOREPORT ---
Date of service: 04/02/23 Time of Service: 10:10 Colonoscopy Report Date of procedure: 04/02/23 Pre-op diagnosis general: screening colonoscopy Post-op diagnosis procedure note: other (Diverticulosis, colorectal polyps) Procedure: Colonoscopy Surgeon: Prasanna Portillo Anesthesia Type: General LMA/ETT Estimated blood loss (mL): 10 Pathology: other (0.25 cm polyps at 90 cm from the anus x3, 0.25 cm polyp at 25 cm) Complications: None Disposition: same day Indications: Sukhdev is a 77 years old and he has a history of adenomatous polyps. He needs his next screening colonoscopy Prep: Miralax/Dulcolax Procedure Start Time: 09:39 Procedure End Time: 09:58 Retraction Time: 12 Findings: 0.25 cm polyps at 90 cm from the anus x3, 0.25 cm polyp at 25 cm Procedure Description: After the induction of monitored anesthetic care, and with the patient in left lateral decubitus position, I began by performing an external anorectal exam.? Perineum and skin were normal, as was the anal verge.? There are some external perianal skin tags.? Next, I performed a digital rectal exam.? I did not appreciate any abnormal findings.? Next, I advanced a colonoscope into the rectal vault.? I performed retroflexion.? This appeared normal.? Using insufflation, I then advanced the colonoscope beyond the rectal folds and into the sigmoid colon before advancing towards the cecum.? There was extensive sigmoid diverticulosis.? The scope was noted to be in the cecum by identification of the ileocecal valve and appendiceal orifice.? I then began withdrawing the colonoscope using repeated irrigation as necessary for full evaluation of the colonic mucosa. Around 90 cm from the anus was an area with 3 polyps. All polyps were sessile, and all of them were less than 0.25 cm each. I removed these all with cold forceps polypectomy and there was minimal bleeding. Similarly, at 25 cm from the anus was another 0.25 cm polyp this was also removed with cold forceps without issue. Once the scope was withdrawn to the level of the rectum, great care was taken to examine portions of the rectal folds.? Finally, the scope was withdrawn and the patient was brought to the same-day surgery recovery unit as the anesthetic wore off. ?The findings and instructions were shared with the patient prior to discharge. [place] Bowel Prep [place] Bowel Prep Right Colon: 3 Left Colon: 2 Transverse Colon: 3 Total Score: 8
[2023-04-02 07:23] VITALS: BP 135/82; PULSE 84; RESP 20; TEMP 36.4; O2SAT 94
[2023-04-02] MEDS: Lactated Ringers 1,000 ML 80 ML IV (07:54)
--- NOTE | 2023-04-02 08:08 | W.ANESPRE ---
General Info Date of Service Date Performed: 04/02/23 Height: 5 ft 10.5 in Weight: 129.7 kg Body Mass Index (BMI): 40.4 Surgical Procedure: Operation Date: 04/02/23 08:20 Proposed Procedure Side Surgeon sheldon Portillo MD Meds Allergies and Home Medications Allergies Allergy/AdvReac Type Severity Reaction Status Date / Time atorvastatin [From Lipitor] Allergy Mild Verified 04/02/23 07:41 fenofibrate [From Tricor] Allergy Mild Verified 04/02/23 07:41 gemfibrozil Allergy Mild Verified 04/02/23 07:41 simvastatin Allergy Mild Verified 04/02/23 07:41 tetracycline Allergy Mild Verified 04/02/23 07:41 doxycycline calcium AdvReac Unknown bradycardia Verified 04/02/23 07:41 [From Vibramycin] nitroglycerin AdvReac Verified 04/02/23 07:41 [From Nitroglyn] Home Medication Medication Instructions Recorded Aspirin Low-Strength 81 mg 81 mg PO DAILY 08/29/12 chewable tablet (aspirin) dofetilide 500 mcg capsule 500 mcg PO Q12H #60 tab-caps 12/07/17 duloxetine 30 mg capsule,delayed 30 mg PO DAILY 02/04/21 release rosuvastatin 5 mg tablet (Crestor) 2.5 mg PO EVERY OTHER DAY 06/08/21 nystatin 100,000 unit/gram topical 1 applic topical BID #30 grams 06/02/22 ointment melatonin 1 mg tablet See Rx Instructions PO HS PRN 07/17/22 metformin 500 mg tablet 500 mg PO DAILY 07/17/22 metoprolol succinate 100 mg 100 mg PO BID 07/17/22 tablet,extended release 24 hr (Toprol XL) levothyroxine 175 mcg capsule 225 mcg PO DAILY 12/08/22 furosemide 20 mg tablet (Lasix) 10 mg PO DAILY 02/21/23 warfarin 5 mg tablet 5 mg PO Q OTHER DAY 02/21/23 warfarin 5 mg tablet (Coumadin) 2.5 mg PO DIRECTED 03/22/23 Current Visit Medications: Current Medications Generic Name Dose Route Start Last Admin Trade Name Freq PRN Reason Stop Dose Admin Hyoscyamine Sulfate 0.125 mg 04/01/23 16:20 Hyoscyamine 0.125 Mg Sl/Oral/Chew SL 05/01/23 16:19 DIRECTED PRN Ringer's Solution 1,000 mls @ 80 mls/hr 04/02/23 06:00 04/02/23 07:54 IV 04/02/23 23:59 80 mls/hr INFUSION EFREM Administration IV Miscellaneous Supplies 1 each 04/02/23 06:00 Iv Access IV 04/02/23 23:59 DIRECTED EFREM Ondansetron HCl 4 mg 04/01/23 16:20 Ondansetron 4 Mg/2 Ml Vial IVP 05/01/23 16:19 Q4H PRN PRN Nausea / Vomiting Sodium Chloride 0 ml 04/02/23 06:00 Normal Saline Flush 10 Ml Syr IV 04/02/23 23:59 PRN PRN Sodium Chloride 0 ml 04/02/23 06:00 Normal Saline 10 Ml Vial IJ 04/02/23 23:59 DIRECTED PRN Sterile Water 0 ml 04/02/23 06:00 Water,Injection,Sterile 10 Ml Vial IJ 04/02/23 23:59 DIRECTED PRN PFSH Active Problems Active Problems: Problem Status Onset Code Screen for colon cancer Z12.11 Corns and callosities L84 Nail dystrophy L60.3 BMI 35.0-35.9,adult Z68.35 Lichen sclerosus L90.0 Adenoma of colon D12.6 IBS (irritable bowel syndrome) K58.9 Chronic renal insufficiency N18.9 GERD (gastroesophageal reflux disease) K21.9 Major depression F32.9 Diabetes mellitus 05/24/22 E11.9 Iliotibial band syndrome affecting left lower leg M76.32 Low back pain M54.50 Elevated PSA R97.20 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 Trochanteric bursitis of left hip M70.62 Tendonitis of left rotator cuff M75.82 Right rotator cuff tendonitis M75.81 Tinnitus, bilateral H93.13 Impairment of speech discrimination H93.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, bilateral H90.3 Sleep apnea 11/19/14 G47.30 Sinus node dysfunction 11/19/14 I49.5 Paroxysmal atrial fibrillation 11/19/14 I48.0 Obesity 11/19/14 E66.9 Nonsustained ventricular tachycardia 02/16/17 I47.2 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 of antiarrhythmic medical therapy 04/07/16 Z79.899 Essential hypertension 12/06/15 I10 Chronic anticoagulation 04/07/16 Z79.01 Cardiac pacemaker in situ 01/29/15 Z95.0 CAD (coronary artery disease) 11/19/14 I25.10 Peripheral vascular disease Vertigo Peripheral neuropathy Hypothyroidism E03.9 Peptic ulcer K27.9 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 Herniation of nucleus pulposus M51.9 Psoriasis L40.9 Chronic bronchitis J42 Osteoarthritis M19.90 Obstructive sleep apnea syndrome G47.33 Coronary arteriosclerosis I25.10 Atrial fibrillation 12/10/12 I48.91 Benign hypertension I10 Medical History Medical History Prostate cancer Plantar wart COVID-19 virus infection Peptic ulcer disease Hypertension Chronic bronchitis Iliac artery aneurysm, left Abdominal pain Adenomatous polyp of colon Paroxysmal a-fib Chronic renal insufficiency Abdominal aortic aneurysm s/p repair 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 History of smoking-35 pack year-quit 1996 History of - coronary artery bypass grafting CABG x 3. [place] age 50. Family hx CAD -brother age 50, father age 45 and mother age 62 all dying from MIs. Stress MIBI done September 2012 negative. Echocardiogram with normal ejection fraction in September 2012 Surgical History Surgical History Hx of CABG (11/19/14) TKA Pacemaker 2015 Endovascular AAA repair 2005 Coronary Stent 1996 Colonoscopy - MAC (11/12/17) Tubular adenoma x3. Colonoscopy - IV Sedation 2010- polyp Coronary Artery Bypass Gaft (CABG) ANDRADE-LAD x2, SVG-Diag1 Appendectomy Tobacco Smoking/Tobacco Use Status: Former Tobacco Use Alcohol Alcohol Intake: current Alcohol intake frequency: holidays/special occasions only Substance Use Substance use: Never Substance use type: does not use Vital Signs and Lab Results Vital Signs Most Recent Vital Signs in EMR: Most Recent Vital Signs Temp Pulse Resp BP Pulse Ox 36.4 C L 84 20 135/82 94 04/02/23 07:23 04/02/23 07:23 04/02/23 07:23 04/02/23 07:23 04/02/23 07:23 Point of Care Results Point of Care Results: Finger Stick Blood Glucose 139 04/02/23 07:44 Lab Results Blood Type / Crossmatch: No Data to Display Complete Blood Count: No Data to Display Complete Metabolic Panel: No Data to Display Liver Function Panel: No Data to Display Coagulation Panel: No Data to Display Cardiac Panel: No Data to Display Arterial Blood Gas: No Data to Display Venous Blood Gas: No Data to Display Pancreas Panel: No Data to Display Thyroid Panel: No Data to Display Infectious Disease: No Data to Display Blood Cultures: No Data to Display Toxicology Panel: No Data to Display Imaging and Studies Imaging and Studies Study information below may be from another EMR and interpreted by another provider. Please see original notes in EMR for more complete details. EKG Summary: EKG PATIENT NAME: Sharon Clark UNIT #: [id number] ORDERING PROVIDER: Enrique Moscoso M.D. PRIMARY CARE PROVIDER: PAUL SPAULDING MD DATE/TIME OF SERVICE: 09/24/22 1626 : 1945 PERFORMING LOCATION: ER APPROVED REPORT Exam: Resting ECG Reason for Exam: SOB/chest pain Patient Location: E HR:80 bpm ECG Measurements Heart Rate 80 AXIS AZ 195 P [id number] QRSd 95 QRS 35 QT 411 T-37 QTc 475 Conclusion Atrial-paced complexes...other complexes also detected Borderline T abnormalities, diffuse leads...T flat/neg atrial paced, consider occassional V paced v PVC <Electronically signed by Enrique Moscoso M.D. in OV> E-Sign Date: 09/24/22 E-Sign Time: 1720 ADDENDUM APPROVED REPORT Exam: Resting ECG Reason for Exam: SOB/chest pain Patient Location: E HR:80 bpm ECG Measurements Heart Rate 80 AXIS AZ 195 P [id number] QRSd 95 QRS 35 QT 411 T-37 QTc 475 Conclusion Atrial-paced complexes...other complexes also detected Borderline T abnormalities, diffuse leads...T flat/neg atrial paced, consider occassional V paced v PVC I have reviewed and I agree with the emergency room physician's ECG interpretation. Electronically signed by: <Electronically signed by Kellee Michael M.D. in OV> 09/25/22 0811 Cosigned by: Stress Test Summary: Patient Name: SHARON CLARK Unit #: [id number] Loc: Ordering Provider: Antonio Marte M.D. Status: [facility] Primary Care Provider: Paul Spaulding M.D. Date of Exam: 07/03/18 Sex: M : 1945 Age: 72 Exam(s) a NM:NM MPI rest & stress grp *[facility]* *[facility]* [address] [place] [address] Myocardial Perfusion Imaging - SPECT Regadenoson Date of study: 07/03/2018 *PATIENT PRESENTATION* Height: 177.8cm (70in) Blood Pressure: Weight: 124.5kg (274lb) BSA: 2.53m^2 Referring physician: Izzy Gomez Ordering physician: Antonio Marte Impressions: Normal myocardial perfusion and contraction after pharmacological stress. Summary: 1. Myocardial perfusion imaging: No myocardial perfusion defects noted. 2. The calculated left ventricular ejection fraction after stress: 53%. LV global systolic function is normal. No left ventricular regional motion abnormality. 3. Stress ECG conclusions: The stress ECG is negative. 4. Baseline ECG: Atrial paced rhythm. Indication: I48.91, I25.10, Z95.1. History: REASON FOR TESTING: PATIENT REPORTS RECENT RECURRENT EPISODES OF FEELING SICK TO MY STOMACH, FOLLOWED BY SUDDENLY FEELING CLAMMY AND SWEATY WHENEVER HE EXERTS HIMSELF, LIKE WALKING UP FLIGHT OF STAIRS OR SHOVELING SNOW. HE IS PLANNING FOR A TOTAL KNEE ARTHROPLASTY AT [facility] [place]. HE DENIES CHEST/PRESSURE AND SOB UPON ARRIVAL FOR LEXISCAN STRESS TESTING. SIGNIFICANT PAST MEDICAL HISTORY: S/PCABG IN 2010, PACEMAKER IMPLANT 2005, PAROXYSMAL ATRIAL FIBRILLATION, OBSTRUCTIVE SLEEP APNEA ON CPAP. SMOKING STATUS: QUIT 1996. SMOKED FOR 35 YEARS 1 PPD HISTORY. EXERCISE ROUTINE: DAILY ADL'S AND WALKS DOG DAILY FOR 30 MINUTES. Risk factors: Family history of coronary artery disease. Hypertension. Obesity. Cholesterol: 127mg/dl. HDL: 42mg/dl. LDL: 69mg/dl. Triglycerides: 108mg/dl. Peripheral vascular disease. ALLERGIES: DOXYCYCLINE CALCIUM, STATINS. MEDICATIONS: ASPIRIN 81 MG DAILY, LEVOTHYROXINE 150 MCG DAILY, METOPROLOL SUCCINATE 200 MG DAILY, CRESTOR 2.5 MG EVERY OTHER DAY, WARFARIN 2.5 MG Sunday AND SUNDAY--WARFARIN 5 MG ON Sunday AND SUNDAY, LACTOSE PRN, ACETAMINOPHEN/CODEINE PRN, DULOXETINE 30 MG DAILY, AMLODIPINE 10 MG DAILY, DOFETILIDE 500 MCG BID. Imaging Technique: Protocol: Regadenoson. Acquisition: Gated SPECT; 1 day - rest/stress. The patient was imaged in the supine position. Attenuation correction used. Isotope administration: - Rest. Tc[99m]-sestamibi. Dose: 10.4mCi. Injection time: 08:15 AM. Injection to stress time: 00:45. - Stress. Tc[99m]-sestamibi. Dose: 33.3mCi. Injection time: 11:15 AM. 1-2 min before end of exercise Baseline EC % ATRIAL PACED. HEART RATE 61. Atrial paced rhythm. Stress protocol: +--------+--+ + + !Stage !HR!BP (mmHg) !Comments ! +--------+--+ + + !Baseline!61!140/88 (105)! ! +--------+--+ + + !1 min !60!130/80 (97) !Inject Regadenoson.! +--------+--+ + + !3 min !60!132/80 (97) ! ! +--------+--+ + + !6 min !60!134/80 (98) ! ! +--------+--+ + + * Stress results: STRESS TEST ENDED IN 6 MINUTES 48 SECONDS. NORMAL HEART RATE AND BLOOD PRESSURE RESPONSE TO LEXISCAN INJECTION. NO ANGINA NO ECTOPY NO SIGNIFICANT ST SEGMENT CHANGES. The rate-pressure product for the peak heart rate and blood pressure was 8540mm Hg/min. Stress ECG: The stress ECG is negative. Myocardial perfusion: Imaging information: gated. The image quality was good. Left ventricular size is normal. No myocardial perfusion defects noted. Ventricular Function (Wall Motion): The calculated left ventricular ejection fraction after stress: 53%. LV global systolic function is normal. No left ventricular regional motion abnormality. Study data: Izzy Gomez MD supervised and was readily available during the procedure. This study was interpreted by [facility]. Study status: Routine. Consent: The risks, benefits, and alternatives to the procedure were explained to the patient and informed consent was obtained. Procedure: Initial setup. A baseline ECG was recorded. Surface ECG leads and manual cuff blood pressure measurements were monitored. Heart sounds: Normal. Lung sounds: Normal. Regadenoson stress test. Stress testing was performed, with regadenoson by intravenous bolus, for a total dose of 0.4mgover 10.00sec, followed by a 5ml saline flush. The infusion was terminated due to per protocol. Study completion: All catheters inserted during the procedure were removed. The patient tolerated the procedure well and was discharged from the lab. Discharge: The patient left the laboratory in stable condition. Birthdate: Patient birthdate: 1945. Sex: Gender: male. Study date: Study date: 07/03/2018. Study time: 00:01 AM. Signature Documentation: - The imaging portion of this study was interpreted by Nuclear Marketing Program Manager Izzy Gomez MD. - The Stress ECG portion of this study was interpreted by Izzy Gomez MD. Electronically signed by Izzy Gomez 07/03/2018 12:44 Ordering provider: Antonio Marte M.D. CC: JUDITH WOODSON,PhD,IZZY Dictated by: David Orlando M.D.07/03/18 1400 <Electronically signed by David Orlando M.D.>07/04/18 1516 Disclaimer: The [facility] radiologist is signing only the Nuclear Medicine MPI Imaging exam portion of the report. Transcribed by: Kary Saeed07/04/18 0544 This is privileged, confidential information intended only for the provider named. Any use or distribution by any person other than this provider is strictly prohibited. If you receive this report in error, please notify us immediately at [phone] and return the original report to us at the address above. Thank-you. Echocardiogram Summary: Patient Name: SHARON CLARK Unit #: [id number] Loc: DI Ordering Provider: ANTONIO MARTE M.D. Status: REG CLI Primary Care Provider: PAUL SPAULDING M.D. Date of Exam: 03/01/17 Sex: M : 1945 Age: 71 Exam(s) [id number] US:Echocardiogram Heart *[facility]* *[facility]* [address] [place] [address] Date of study: 03/01/2017 Transthoracic Echocardiography M-mode, complete 2D, complete spectral Doppler, and color Doppler *STUDY CONCLUSIONS* Summary: 1. Left ventricle: The cavity size was normal. Wall thickness was increased in a pattern of mild LVH. Systolic function was normal. The estimated ejection fraction was 60-65%. The tissue Doppler parameters were abnormal. There was no evidence of elevated ventricular filling pressure by Doppler parameters. 2. Mitral valve: There was mild regurgitation. 3. Left atrium: The atrium was mildly dilated. 4. Right ventricle: The cavity size was normal. Wall thickness was normal. Pacer wire or catheter noted in right ventricle. Systolic function was normal. 5. Right atrium: The atrium was mildly dilated. 6. Atrial septum: No defect or patent foramen ovale was identified. 7. Tricuspid valve: There was mild-moderate regurgitation. 8. Pulmonary arteries: Pulmonary systolic pressure was in the range of 25mm Hg to 35mm Hg. 9. Inferior vena cava: The vessel was normal in size. The respirophasic diameter changes were in the normal range (greater than or equal to 50%), consistent with normal central venous pressure. *PATIENT PRESENTATION* Height: 182.9cm ((72in) ) S/D Pressure: 124 / 72 Weight: 121.1kg ((266.4lb) ) BSA: 2.52m^2 Test start time: 02:10 PM. Test stop time: 03:30 PM. ORDERING Antonio Marte REFERRING Antonio Marte PERFORMING Unknown PERFORMING [facility] GENETICS TEACHER Jazzmine Fuentes *PROCEDURE DATA* Procedure information: This study was interpreted by [facility]. Pertinent images and digital data are archived for permanent storage and are available for subsequent review. Comparison was made to the study of 09/20/2012. Study status: Routine. Transthoracic echocardiography. M-mode, complete 2D, complete spectral Doppler, and color Doppler. A Transthoracic Echocardiogram was performed. Scanning was performed from the parasternal, apical, subcostal, and suprasternal notch acoustic windows. Images were obtained using an [id number] cardiac ultrasound machine. Image quality was adequate. Study completion: The patient tolerated the procedure well. History: PMH: AFIB ON DOFETILIDE. *CARDIAC ANATOMY* Left ventricle: The cavity size was normal. Wall thickness was increased in a pattern of mild LVH. Systolic function was normal. The estimated ejection fraction was 60-65%. The tissue Doppler parameters were abnormal. There was no evidence of elevated ventricular filling pressure by Doppler parameters. Aortic valve: Trileaflet. Doppler: There was no stenosis. There was no significant regurgitation. VTI ratio of LVOT to aortic valve: 0.96. Valve area (VTI): 3.5cm^2. Indexed valve area (VTI): 1.4cm^2/m^2. Valve area (Vmax): 3.1cm^2. Indexed valve area (Vmax): 1.2cm^2/m^2. Aorta: Aortic root: The aortic root was normal in size. Ascending aorta: The ascending aorta was mildly dilated. Mitral valve: Doppler: There was no evidence for stenosis. There was mild regurgitation. Valve area by pressure half-time: 4.8cm^2. Indexed valve area by pressure half-time: 1.9cm^2/m^2. Peak gradient (D): 2.6mm Hg. Left atrium: The atrium was mildly dilated. Atrial septum: No defect or patent foramen ovale was identified. Right ventricle: The cavity size was normal. Wall thickness was normal. Pacer wire or catheter noted in right ventricle. Systolic function was normal. Pulmonic valve: Doppler: There was no evidence for stenosis. There was trivial regurgitation. Peak gradient (S): 2.4mm Hg. Tricuspid valve: Doppler: There was mild-moderate regurgitation. Pulmonary artery: Poorly visualized. Pulmonary systolic pressure was in the range of 25mm Hg to 35mm Hg. Right atrium: The atrium was mildly dilated. Pericardium: There was no pericardial effusion. Systemic veins: Inferior vena cava: Well visualized. The vessel was normal in size. The respirophasic diameter changes were in the normal range (greater than or equal to 50%), consistent with normal central venous pressure. Baseline ECG: Paced rhythm. Measurements Left ventricle Value Reference LV ID, ED, PLAX 4.4 cm 3.5 - 6.0 LV ID, ES, PLAX 3.2 cm 2.1 - 4.0 LV PW thickness, ED, PLAX 1.2 cm LV end-diastolic volume, 1-p A2C 91 ml LV ejection fraction, 1-p A2C 61 % LV end-diastolic volume, 1-p A4C 125 ml LV ejection fraction, 1-p A4C 60 % Ventricular septum Value Reference IVS thickness, ED, PLAX 1.2 cm LVOT Value Reference LVOT ID, A-P 2.1 cm LVOT area 3.6 cm^2 LVOT peak velocity, S 1.09 m/sec LVOT VTI, S 23.9 cm LVOT mean gradient, S 2.1 mm Hg Aortic valve Value Reference VTI ratio, LVOT/AV 0.96 Aortic valve area, VTI 3.5 cm^2 Aortic valve area, peak velocity 3.1 cm^2 Aorta Value Reference Aortic root ID, ED 3.6 cm Ascending aorta ID, A-P, S 4.1 cm Aortic root ID, ED, MM 3.6 cm 2.0 - 3.7 RVOT Value Reference RVOT VTI, S 17.9 cm Left atrium Value Reference LA area, ES, A4C (H) 28 cm^2 8.8 - 23.4 LA volume/bsa, ES, 1-p A4C 43 ml/m^2 LA/aortic root ratio 1.37 Mitral valve Value Reference Mitral E-wave peak velocity 0.8 m/sec Mitral A-wave peak velocity 0.94 m/sec Mitral pressure half-time 46 ms Mitral peak gradient, D 2.6 mm Hg Mitral E/A ratio, peak 0.85 Mitral valve area, PHT, DP 4.8 cm^2 Pulmonary veins Value Reference Pulmonary vein peak velocity, S 0.65 m/sec Pulmonary vein peak velocity, D 0.4 m/sec Pulmonary vein velocity ratio, peak, 1.6 S/D Pulmonary vein A-wave reversal peak 0.29 m/sec velocity Tricuspid valve Value Refer Anesthesia Assessment and Plan Anesthesia History Personal History: No History of Anesthesia Complications Family History: No Family History of Anesthesia Complications Exercise Tolerance Exercise Tolerance: Metabolic Equivalents>4 Pertinent Negatives Pertinent Negatives: No History of CVA/TIA Cardiac & Pulmonary Exam Cardiac Exam: Normal S1/S2 Heart Sounds Pulmonary Exam: Clear Bilateral Breath Sounds Implantable Cardiac Device Does patient have a Pacemaker or an ICD?: Yes 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:: [email or web address] Reason for Placement:: Tachy/Abner Syndrome Date of Last Device Interrogation:: 03/16/23 Airway Exam Known Difficult Airway: No Mallampati Class: 3 Mouth Opening: Normal (> 3cm) Thyromental Distance: Greater than 3 cm Neck Range of Motion: Full ROM Neck Circumference: Thick Teeth Condition: Generalized Poor Dentition (Many missing, patient denies loose, chipped, cracked, or broken) ASA Classification ASA Score: ASA 3 Emergency Case?: No NPO Status NPO Status: NPO Clears >2 hours, Solids >8 hours Anesthesia Plan Resuscitation Status: Full Code Anesthesia Technique: General Anesthesia Airway Planned: Natural Airway Monitors Used: Standard Monitors Preoperative Comments:: 77 yo male here for colonoscopy. PMH GERD (Few times a month associated with food), Cardiac (took his metoprolol dofetilide this morning), hypothyroid (levothyroxine this morning). Recently seen cardiology and was interrogated at [facility], per patient cardiology was happy with condition, scheduled for next visit with them in 6 months (always on 6 mo intervals).
[2023-04-02 08:26] VITALS: BMI 40.4
--- NOTE | 2023-04-02 09:49 | BOWEL_PTH ---
PATIENT: Sukhdev Vazquez LOC: [facility] U#:[id number] AGE/SX: 77/M ROOM: RE04/02/[address]: Prasanna Portillo MD : 1945 BED: DIS: 04/02/2023 SPEC #: [id number] RECD: 04/02/23 12:59 STATUS: ALEXI RE #: [id number] JLUIS: 04/02/23 09:[address]: Prasanna Portillo DEPT: Surgical Specimen RECD BY: Elzbieta Bunn ENTERED: 04/02/23 13:03 SP TYPE: Bowel OTHR DR: Alethea Rodriguez Tissues: 1 - BIOPSY BOWEL 2 - BIOPSY BOWEL Procedures: GROSS AND MICRO LEVEL 4 Comments: [id number]
[2023-04-02 10:03] VITALS: BP 105/63; PULSE 68; RESP 18; TEMP 36.6; O2SAT 92
[2023-04-02 10:30] VITALS: BP 121/78; PULSE 60; RESP 18; TEMP 36.7; O2SAT 92
--- NOTE | 2023-04-02 10:32 | W.ANESPOSTOP ---
Postoperative Evaluation Date, Time and Location Date Performed: 04/02/23 Time Performed: 10:20 Patient Location: Day Surgery Unit Vital Signs Most Recent Imported Vital Signs: Most Recent Vital Signs Temp Pulse Resp BP Pulse Ox 36.6 C 68 18 105/63 92 04/02/23 10:03 04/02/23 10:03 04/02/23 10:03 04/02/23 10:03 04/02/23 10:03 Pain Score Most Recent Pain Score: Most Recent Pain Score Pain Level 0 04/02/23 10:03 Assessment Mental Status: Awake (Alert & Oriented to Patient Baseline) Airway and Respiratory Function: Patent airway with normal (patient baseline) respiratory exam Cardiovascular Function: Hemodynamically Stable Hydration Status: Adequately Hydrated Nausea & Vomiting: No Nausea or Vomiting Pain: Pt. Denies Any Pain Peripheral Nerve Block: Patient did not receive a nerve block
[2023-04-02 10:43] VITALS: O2SAT 94
[2023-04-02] MEDS: Acetaminophen 325 MG TAB 650 MG PO (11:17)
== END 2023-04-02 11:32 | disposition home or self-care (01) ==
PROVIDERS: PCP Family Medicine; Visit Provider Surgery
PROC: 0DJD8ZZ Inspection of Lower Intestinal Tract, Via Natural or Artificial Opening Endoscopic (ICD-10-PCS; CPT 45378; principal; 2023-04-02 08:15)
DX: Z12.11 Encounter for screening for malignant neoplasm of colon (principal); D12.3 Benign neoplasm of transverse colon; K57.30 Diverticulosis of large intestine without perforation or abscess without bleeding; Z86.010 Personal history of colon polyps; K58.9 Irritable bowel syndrome, unspecified; K21.9 Gastro-esophageal reflux disease without esophagitis; I10 Essential (primary) hypertension; E03.9 Hypothyroidism, unspecified; D12.5 Benign neoplasm of sigmoid colon
CPT/HCPCS: 45380; 88305

== ENCOUNTER 2023-04-05 13:11 | Outpatient (REF) | payer MEDICARE, SELFPAY ==
[2023-04-05 20:25] LABS: ALT 15 U/L (16-63); AST 14 U/L (15-37); Albumin 3.6 g/dL (3.4-5.0); Alkaline Phosphatase 64 U/L (46-116); Anion Gap 8.6 mmol/L (3-11); BUN 21 mg/dL (7-18); Bilirubin, Total 0.6 mg/dL (0.2-1.0); CO2 26.4 mmol/L (21.0-32.0); CREATININE 1.7 mg/dL (0.70-1.30); Calcium 9.4 mg/dL (8.5-10.1); Chloride 108 mmol/L (98-107); Glucose 113 mg/dL (74-106); Potassium 4.8 mmol/L (3.5-5.1); Sodium 143 mmol/L (136-145)
[2023-04-09 19:39] LABS: Magnesium 2.2 mg/dL (1.8-2.4)
== END 2023-04-05 13:12 | disposition home or self-care (01) ==
LOC: NCHCN 13:11
PROVIDERS: PCP Family Medicine; Visit Provider Family Medicine
DX: I10 Essential (primary) hypertension (principal)
CPT/HCPCS: 80053; 83735

== ENCOUNTER 2023-06-01 04:17 | Outpatient (CLI) | payer MEDICARE, SELFPAY ==
[2023-06-01 19:28] LABS: PSA, Diagnostic 16.9 ng/mL (<=6.5)
== END 2023-06-01 04:18 | disposition home or self-care (01) ==
LOC: LBO 04:20
PROVIDERS: PCP Family Medicine; Visit Provider Urology
DX: R97.20 Elevated prostate specific antigen [PSA] (principal)
CPT/HCPCS: 36415; 84153

== ENCOUNTER → 2023-06-08 10:15 | Outpatient (BNVA) | payer MEDICARE, SELFPAY | PROVIDERS: PCP Family Medicine; Visit Provider Urology | DX: R97.20 Elevated prostate specific antigen [PSA] (principal); N40.1 Benign prostatic hyperplasia with lower urinary tract symptoms; R39.12 Poor urinary stream | CPT/HCPCS: 99214 ==

== ENCOUNTER 2023-07-12 15:17 | Outpatient (REF) | payer MEDICARE, SELFPAY ==
[2023-07-12 15:16] LABS: Anion Gap 8.8 mmol/L (3-11); BUN 24 mg/dL (7-18); CO2 26.2 mmol/L (21.0-32.0); CREATININE 1.6 mg/dL (0.70-1.30); Calcium 9.5 mg/dL (8.5-10.1); Chloride 105 mmol/L (98-107); Estimated GFR 43.56 (mL/min/1.73m2); Glucose 120 mg/dL (74-106); Potassium 4.5 mmol/L (3.5-5.1); Sodium 140 mmol/L (136-145); TSH (W/Ref FT4) 7.82 uIU/mL (0.36-3.74)
[2023-07-12 16:36] LABS: FREE T4 1.12 ng/dL (0.76-1.46)
== END 2023-07-12 15:18 | disposition home or self-care (01) ==
LOC: NCHCN 15:17
PROVIDERS: PCP Family Medicine; Referring Provider Family Medicine; Visit Provider Family Medicine
DX: E03.9 Hypothyroidism, unspecified (principal); I10 Essential (primary) hypertension
CPT/HCPCS: 80048; 84439; 84443

== ENCOUNTER 2023-08-10 10:52 | Day surgery (SDC) | payer MEDICARE, SELFPAY ==
--- NOTE | 2023-08-10 12:41 | ANES.PREOP_ITS ---
General Info Date of Service Date Performed: 08/10/23 Height: 5 ft 10.5 in Weight: 129.274 kg Body Mass Index (BMI): 40.3 Surgical Procedure: Operation Date: 08/10/23 12:55 Proposed Procedure Side Surgeon p Cataract Extraction with IOL Implant Right Enrique Morton MD Meds Allergies and Home Medications Allergies Allergy/AdvReac Type Severity Reaction Status Date / Time tetracycline Allergy Severe Anaphylaxis Verified 08/10/23 11:40 gemfibrozil Allergy Mild myalgias Verified 08/10/23 11:40 atorvastatin [From Lipitor] AdvReac Mild myalgia Verified 08/10/23 11:40 fenofibrate [From Tricor] AdvReac Mild decreased Verified 08/10/23 11:40 pulse simvastatin AdvReac Mild myalgia Verified 08/10/23 11:40 doxycycline calcium AdvReac Unknown bradycardia Verified 08/10/23 11:40 [From Vibramycin] nitroglycerin AdvReac unknown Verified 08/10/23 11:40 [From Nitroglyn] Home Medication Medication Instructions Recorded Aspirin Low-Strength 81 mg 81 mg PO DAILY 08/29/12 chewable tablet (aspirin) dofetilide 500 mcg capsule 500 mcg PO Q12H #60 tab-caps 12/07/17 duloxetine 30 mg capsule,delayed 30 mg PO DAILY 02/04/21 release rosuvastatin 5 mg tablet (Crestor) 2.5 mg PO EVERY OTHER DAY 06/08/21 nystatin 100,000 unit/gram topical 1 applic topical BID #30 grams 06/02/22 ointment melatonin 1 mg tablet See Rx Instructions PO HS PRN 07/17/22 metformin 500 mg tablet 500 mg PO BID 07/17/22 metoprolol succinate 100 mg 100 mg PO BID 07/17/22 tablet,extended release 24 hr (Toprol XL) furosemide 20 mg tablet (Lasix) 10 mg PO DAILY 02/21/23 warfarin 5 mg tablet 5 mg PO Q OTHER DAY 02/21/23 warfarin 5 mg tablet (Coumadin) 2.5 mg PO DIRECTED 03/22/23 clotrimazole 1 % topical cream 1 applic topical BID 08/07/23 (Antifungal (clotrimazole)) levothyroxine 200 mcg tablet 200 mcg PO DAILY 08/07/23 levothyroxine 25 mcg tablet 25 mcg PO DAILY 08/07/23 losartan 25 mg tablet 25 mg PO DAILY 08/07/23 Current Visit Medications: Current Medications Generic Name Dose Route Start Last Admin Trade Name Freq PRN Reason Stop Dose Admin Acetaminophen 1,000 mg 08/10/23 06:00 Acetaminophen 500 Mg Tab PO 09/09/23 05:59 Q4H PRN PRN Balanced Salt Solution 500 ml 08/10/23 06:00 Balanced Salt Soln.-Plus 500 Ml Bag OP 09/09/23 05:59 DIRECTED EFREM Miscellaneous Medication 0 ml 08/10/23 06:00 Prednisolone 1%, Moxifloxacin 0.5%, Bromfenac 0.09% 5ml Btl OD 09/09/23 05:59 DIRECTED EFREM Miscellaneous Medication 0 ml 08/10/23 06:00 08/10/23 11:53 Tropicam./Phenyleph. (1/2.5%) 10 Ml Btl OD 09/09/23 05:59 1 drp DIRECTED EFREM Administration Tetracaine HCl 0 ml 08/10/23 06:00 Tetracaine 0.5% 4 Ml Btl OD 09/09/23 05:59 DIRECTED EFREM PFSH Active Problems Active Problems: Problem Status Onset Code Nuclear age-related cataract, right eye H25.11 Tubular adenoma of colon ~04/02/23 D12.6 Corns and callosities L84 Nail dystrophy L60.3 BMI 35.0-35.9,adult Z68.35 Lichen sclerosus L90.0 Adenoma of colon D12.6 IBS (irritable bowel syndrome) K58.9 Chronic renal insufficiency N18.9 GERD (gastroesophageal reflux disease) K21.9 Major depression F32.9 Diabetes mellitus 05/24/22 E11.9 Iliotibial band syndrome affecting left lower leg M76.32 Low back pain M54.50 Elevated PSA R97.20 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 Trochanteric bursitis of left hip M70.62 Tendonitis of left rotator cuff M75.82 Right rotator cuff tendonitis M75.81 Tinnitus, bilateral H93.13 Impairment of speech discrimination H93.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, bilateral H90.3 Sleep apnea 11/19/14 G47.30 Sinus node dysfunction 11/19/14 I49.5 Paroxysmal atrial fibrillation 11/19/14 I48.0 Obesity 11/19/14 E66.9 Nonsustained ventricular tachycardia 02/16/17 I47.2 MCFP current use of antiarrhythmic medical therapy 04/07/16 Z79.899 Essential hypertension 12/06/15 I10 Chronic anticoagulation 04/07/16 Z79.01 Cardiac pacemaker in situ 01/29/15 Z95.0 CAD (coronary artery disease) 11/19/14 I25.10 Peripheral vascular disease Vertigo Peripheral neuropathy Hypothyroidism E03.9 Peptic ulcer K27.9 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 Herniation of nucleus pulposus M51.9 Psoriasis L40.9 Chronic bronchitis J42 Osteoarthritis M19.90 Obstructive sleep apnea syndrome G47.33 Coronary arteriosclerosis I25.10 Atrial fibrillation 12/10/12 I48.91 Benign hypertension I10 Medical History Medical History (Updated 08/08/23 @ 19:55 by Enrique Morton MD) Screen for colon cancer Prostate cancer Plantar wart COVID-19 virus infection Peptic ulcer disease Hypertension Chronic bronchitis Iliac artery aneurysm, left Abdominal pain Adenomatous polyp of colon Paroxysmal a-fib Chronic renal insufficiency Abdominal aortic aneurysm s/p repair 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 History of smoking-35 pack year-quit 1996 History of - coronary artery bypass grafting CABG x 3. UT age 50. Family hx CAD -brother age 50, father age 45 and mother age 62 all dying from MIs. Stress MIBI done September 2012 negative. Echocardiogram with normal ejection fraction in September 2012 Surgical History Surgical History (Updated 08/08/23 @ 14:17 by Josiah Garcia) [place]x [place] (11/19/14) [place] [place] [place]. Endovascular AAA repair 2005 Coronary Stent 1996 Colonoscopy - MAC (03/2023) polyps 11/12/17 Colonoscopy - IV Sedation 2010- polyp Coronary Artery Bypass Gaft (CABG) ANDRADE-LAD x2, SVG-Diag1 Appendectomy Tobacco Smoking/Tobacco Use Status: Former Tobacco Use Alcohol Alcohol Intake: current Alcohol intake frequency: holidays/special occasions only Substance Use Substance use: Never Substance use type: does not use Vital Signs and Lab Results Point of Care Results Point of Care Results: Finger Stick Blood Glucose 121 08/10/23 11:45 Lab Results Blood Type / Crossmatch: No Data to Display Complete Blood Count: No Data to Display Complete Metabolic Panel: Sodium 140 mmol/L (136-145) 07/12/23 11:15 Potassium 4.5 mmol/L (3.5-5.1) 07/12/23 11:15 Chloride 105 mmol/L (98-107) 07/12/23 11:15 Carbon Dioxide 26.2 mmol/L (21.0-32.0) 07/12/23 11:15 BUN 24 mg/dL (7-18) H 07/12/23 11:15 Creatinine 1.6 mg/dL (0.70-1.30) H 07/12/23 11:15 Est GFR (CKD-EPI 2020) 43.56 (mL/min/1.73m2) 07/12/23 11:15 Calcium 9.5 mg/dL (8.5-10.1) 07/12/23 11:15 Glucose 120 mg/dL (74-106) H 07/12/23 11:15 Liver Function Panel: No Data to Display Coagulation Panel: No Data to Display Cardiac Panel: No Data to Display Arterial Blood Gas: No Data to Display Venous Blood Gas: No Data to Display Pancreas Panel: No Data to Display Thyroid Panel: Thyroid Stimulating Hormone (TSH) 7.82 uIU/mL (0.36-3.74) H 07/12/23 11:15 Infectious Disease: No Data to Display Blood Cultures: No Data to Display Toxicology Panel: No Data to Display Imaging and Studies Imaging and Studies Study information below may be from another EMR and interpreted by another provider. Please see original notes in EMR for more complete details. EKG Summary: EKG PATIENT NAME: Sharon Clark UNIT #: [id number] ORDERING PROVIDER: Enrique Moscoso M.D. PRIMARY CARE PROVIDER: PAUL SPAULDING MD DATE/TIME OF SERVICE: 09/24/221625 : 1945 PERFORMING LOCATION: ER APPROVED REPORT Exam: Resting ECG Reason for Exam: SOB/chest pain Patient Location: E HR:80 bpm ECG Measurements Heart Rate 80 AXIS MT 195 P [id number] QRSd 95 QRS 35 QT 411 T-37 QTc 475 Conclusion Atrial-paced complexes...other complexes also detected Borderline T abnormalities, diffuse leads...T flat/neg atrial paced, consider occassional V paced v PVC <Electronically signed by Enrique Moscoso M.D. in OV> E-Sign Date: 09/24/22 E-Sign Time: 1720 ADDENDUM APPROVED REPORT Exam: Resting ECG Reason for Exam: SOB/chest pain Patient Location: E HR:80 bpm ECG Measurements Heart Rate 80 AXIS MT 195 P [id number] QRSd 95 QRS 35 QT 411 T-37 QTc 475 Conclusion Atrial-paced complexes...other complexes also detected Borderline T abnormalities, diffuse leads...T flat/neg atrial paced, consider occassional V paced v PVC I have reviewed and I agree with the emergency room physician's ECG interpreta tion. Electronically signed by: <Electronically signed by Kellee Michael M.D. in OV> 09/25/22 0811 Cosigned by: Stress Test Summary: Patient Name: SHARON CLARK Unit #: [id number] Loc: DI Ordering Provider: Antonio Marte M.D. Status: REG [facility] Primary Care Provider: Paul Spaulding M.D. Date of Exam: 07/03/18 Sex: M : 1945 Age: 72 Exam(s) a NM:NM MPI rest & stress grp *[facility]* *[facility]* [address] [place] [address] Myocardial Perfusion Imaging - SPECT Regadenoson Date of study: 07/03/2018 *PATIENT PRESENTATION* Height: 177.8cm (70in) Blood Pressure: Weight: 124.5kg (274lb) BSA: 2.53m^2 Referring physician: Izzy Gomez Ordering physician: Antonio Marte Impressions: Normal myocardial perfusion and contraction after pharmacological stress. Summary: 1. Myocardial perfusion imaging: No myocardial perfusion defects noted. 2. The calculated left ventricular ejection fraction after stress: 53%. LV global systolic function is normal. No left ventricular regional motion abnormality. 3. Stress ECG conclusions: The stress ECG is negative. 4. Baseline ECG: Atrial paced rhythm. Indication: I48.91, I25.10, Z95.1. History: REASON FOR TESTING: PATIENT REPORTS RECENT RECURRENT EPISODES OF FEELING SICK TO MY STOMACH, FOLLOWED BY SUDDENLY FEELING CLAMMY AND SWEATY WHENEVER HE EXERTS HIMSELF, LIKE WALKING UP FLIGHT OF STAIRS OR SHOVELING SNOW. HE IS PLANNING FOR A T[place]OP[place] [facility] [place] HE DENIES CHEST/PRESSURE AND SOB UPON ARRIVAL FOR LEXISCAN STRESS TESTING. SIGNIFICANT PAST MEDICAL HISTORY: S/PCABG IN 2010, PACEMAKER IMPLANT 2005, PAROXYSMAL ATRIAL FIBRILLATION, OBSTRUCTIVE SLEEP APNEA ON CPAP. SMOKING STATUS: QUIT 1996. SMOKED FOR 35 YEARS 1 PPD HISTORY. EXERCISE ROUTINE: DAILY ADL'S AND WALKS DOG DAILY FOR 30 MINUTES. Risk factors: Family history of coronary artery disease. Hypertension. Obesity. Cholesterol: 127mg/dl. HDL: 42mg/dl. LDL: 69mg/dl. Triglycerides: 108mg/dl. Peripheral vascular disease. ALLERGIES: DOXYCYCLINE CALCIUM, STATINS. MEDICATIONS: ASPIRIN 81 MG DAILY, LEVOTHYROXINE 150 MCG DAILY, METOPROLOL SUCCINATE 200 MG DAILY, CRESTOR 2.5 MG EVERY OTHER DAY, WARFARIN 2.5 MG Sunday AND SUNDAY--WARFARIN 5 MG ON Sunday AND SUNDAY, LACTOSE PRN, ACETAMINOPHEN/CODEINE PRN, DULOXETINE 30 MG DAILY, AMLODIPINE 10 MG DAILY, DOFETILIDE 500 MCG BID. Imaging Technique: Protocol: Regadenoson. Acquisition: Gated SPECT; 1 day - rest/stress. The patient was imaged in the supine position. Attenuation correction used. Isotope administration: - Rest. Tc[99m]-sestamibi. Dose: 10.4mCi. Injection time: 08:15 AM. Injection to stress time: 00:45. - Stress. Tc[99m]-sestamibi. Dose: 33.3mCi. Injection time: 11:15 AM. 1-2 min before end of exercise Baseline EC % ATRIAL PACED. HEART RATE 61. Atrial paced rhythm. Stress protocol: +--------+--+ + + !Stage !HR!BP (mmHg) !Comments ! +--------+--+ + + !Baseline!61!140/88 (105)! ! +--------+--+ + + !1 min !60!130/80 (97) !Inject Regadenoson.! +--------+--+ + + !3 min !60!132/80 (97) ! ! +--------+--+ + + !6 min !60!134/80 (98) ! ! +--------+--+ + + * Stress results: STRESS TEST ENDED IN 6 MINUTES 48 SECONDS. NORMAL HEART RATE AND BLOOD PRESSURE RESPONSE TO LEXISCAN INJECTION. NO ANGINA NO ECTOPY NO SIGNIFICANT ST SEGMENT CHANGES. The rate-pressure product for the peak heart rate and blood pressure was 8540mm Hg/min. Stress ECG: The stress ECG is negative. Myocardial perfusion: Imaging information: gated. The image quality was good. Left ventricular size is normal. No myocardial perfusion defects noted. Ventricular Function (Wall Motion): The calculated left ventricular ejection fraction after stress: 53%. LV global systolic function is normal. No left ventricular regional motion abnormality. Study data: Izzy Gomez MD supervised and was readily available during the procedure. This study was interpreted by [facility]. Study status: Routine. Consent: The risks, benefits, and alternatives to the procedure were explained to the patient and informed consent was obtained. Procedure: Initial setup. A baseline ECG was recorded. Surface ECG leads and manual cuff blood pressure measurements were monitored. Heart sounds: Normal. Lung sounds: Normal. Regadenoson stress test. Stress testing was performed, with regadenoson by intravenous bolus, for a total dose of 0.4mgover 10.00sec, followed by a 5ml saline flush. The infusion was terminated due to per protocol. Study completion: All catheters inserted during the procedure were removed. The patient tolerated the procedure well and was discharged from the lab. Discharge: The patient left the laboratory in stable condition. Birthdate: Patient birthdate: 1945. Sex: Gender: male. Study date: Study date: 07/03/2018. Study time: 00:01 AM. Signature Documentation: - The imaging portion of this study was interpreted by [facility]er Izzy Gomez MD. - The Stress ECG portion of this study was interpreted by Izzy Gomez MD. Electronically signed by Izzy Gomez 07/03/2018 12:44 Ordering provider: Antonio Marte M.D. CC: JUDITH WOODSON,PhD,IZZY Dictated by: David Orlando M.D.07/03/18 1400 <Electronically signed by David Orlando M.D.>07/04/18 1516 Disclaimer: The [facility] radiologist is signing only the Nuclear Medicine MPI Imaging exam portion of the report. Transcribed by: Kary Saeed07/04/18 0544 This is privileged, confidential information intended only for the provider named. Any use or distribution by any person other than this provider is strictly prohibited. If you receive this report in error, please notify us immediately at [phone] and return the original report to us at the address above. Thank-you. Echocardiogram Summary: Patient Name: SHARON CLARK Unit #: [id number] Loc: Ordering Provider: ANTONIO MARTE M.D. Status: [facility] Primary Care Provider: PAUL SPAULDING M.D. Date of Exam: 03/01/17 Sex: M : 1945 Age: 71 Exam(s) [id number] US:Echocardiogram Heart *[facility]* *[facility]* [address] [place] [address] Date of study: 03/01/2017 Transthoracic Echocardiography M-mode, complete 2D, complete spectral Doppler, and color Doppler *STUDY CONCLUSIONS* Summary: 1. Left ventricle: The cavity size was normal. Wall thickness was increased in a pattern of mild LVH. Systolic function was normal. The estimated ejection fraction was 60-65%. The tissue Doppler parameters were abnormal. There was no evidence of elevated ventricular filling pressure by Doppler parameters. 2. Mitral valve: There was mild regurgitation. 3. Left atrium: The atrium was mildly dilated. 4. Right ventricle: The cavity size was normal. Wall thickness was normal. Pacer wire or catheter noted in right ventricle. Systolic function was normal. 5. Right atrium: The atrium was mildly dilated. 6. Atrial septum: No defect or patent foramen ovale was identified. 7. Tricuspid valve: There was mild-moderate regurgitation. 8. Pulmonary arteries: Pulmonary systolic pressure was in the range of 25mm Hg to 35mm Hg. 9. Inferior vena cava: The vessel was normal in size. The respirophasic diameter changes were in the normal range (greater than or equal to 50%), consistent with normal central venous pressure. *PATIENT PRESENTATION* Height: 182.9cm ((72in) ) S/D Pressure: 124 / 72 Weight: 121.1kg ((266.4lb) ) BSA: 2.52m^2 Test start time: 02:10 PM. Test stop time: 03:30 PM. ORDERING Antonio Marte REFERRING Antonio Marte PERFORMING Unknown PERFORMING [facility] LEAK DETECTION ENGINEER Jazzmine Fuentes *PROCEDURE DATA* Procedure information: This study was interpreted by [facility]. Pertinent images and digital data are archived for permanent storage and are available for subsequent review. Comparison was made to the study of 09/20/2012. Study status: Routine. Transthoracic echocardiography. M-mode, complete 2D, complete spectral Doppler, and color Doppler. A Transthoracic Echocardiogram was performed. Scanning was performed from the parasternal, apical, subcostal, and suprasternal notch acoustic windows. Images were obtained using an [id number] cardiac ultrasound machine. Image quality was adequate. Study completion: The patient tolerated the procedure well. History: PMH: AFIB ON DOFETILIDE. *CARDIAC ANATOMY* Left ventricle: The cavity size was normal. Wall thickness was increased in a pattern of mild LVH. Systolic function was normal. The estimated ejection fraction was 60-65%. The tissue Doppler parameters were abnormal. There was no evidence of elevated ventricular filling pressure by Doppler parameters. Aortic valve: Trileaflet. Doppler: There was no stenosis. There was no significant regurgitation. VTI ratio of LVOT to aortic valve: 0.96. Valve area (VTI): 3.5cm^2. Indexed valve area (VTI): 1.4cm^2/m^2. Valve area (Vmax): 3.1cm^2. Indexed valve area (Vmax): 1.2cm^2/m^2. Aorta: Aortic root: The aortic root was normal in size. Ascending aorta: The ascending aorta was mildly dilated. Mitral valve: Doppler: There was no evidence for stenosis. There was mild regurgitation. Valve area by pressure half-time: 4.8cm^2. Indexed valve area by pressure half-time: 1.9cm^2/m^2. Peak gradient (D): 2.6mm Hg. Left atrium: The atrium was mildly dilated. Atrial septum: No defect or patent foramen ovale was identified. Right ventricle: The cavity size was normal. Wall thickness was normal. Pacer wire or catheter noted in right ventricle. Systolic function was normal. Pulmonic valve: Doppler: There was no evidence for stenosis. There was trivial regurgitation. Peak gradient (S): 2.4mm Hg. Tricuspid valve: Doppler: There was mild-moderate regurgitation. Pulmonary artery: Poorly visualized. Pulmonary systolic pressure was in the range of 25mm Hg to 35mm Hg. Right atrium: The atrium was mildly dilated. Pericardium: There was no pericardial effusion. Systemic veins: Inferior vena cava: Well visualized. The vessel was normal in size. The respirophasic diameter changes were in the normal range (greater than or equal to 50%), consistent with normal central venous pressure. Baseline ECG: Paced rhythm. Measurements Left ventricle Value Reference LV ID, ED, PLAX 4.4 cm 3.5 - 6.0 LV ID, ES, PLAX 3.2 cm 2.1 - 4.0 LV PW thickness, ED, PLAX 1.2 cm LV end-diastolic volume, 1-p A2C 91 ml LV ejection fraction, 1-p A2C 61 % LV end-diastolic volume, 1-p A4C 125 ml LV ejection fraction, 1-p A4C 60 % Ventricular septum Value Reference IVS thickness, ED, PLAX 1.2 cm LVOT Value Reference LVOT ID, A-P 2.1 cm LVOT area 3.6 cm^2 LVOT peak velocity, S 1.09 m/sec LVOT VTI, S 23.9 cm LVOT mean gradient, S 2.1 mm Hg Aortic valve Value Reference VTI ratio, LVOT/AV 0.96 Aortic valve area, VTI 3.5 cm^2 Aortic valve area, peak velocity 3.1 cm^2 Aorta Value Reference Aortic root ID, ED 3.6 cm Ascending aorta ID, A-P, S 4.1 cm Aortic root ID, ED, MM 3.6 cm 2.0 - 3.7 RVOT Value Reference RVOT VTI, S 17.9 cm Left atrium Value Reference LA area, ES, A4C (H) 28 cm^2 8.8 - 23.4 LA volume/bsa, ES, 1-p A4C 43 ml/m^2 LA/aortic root ratio 1.37 Mitral valve Value Reference Mitral E-wave peak velocity 0.8 m/sec Mitral A-wave peak velocity 0.94 m/sec Mitral pressure half-time 46 ms Mitral peak gradient, D 2.6 mm Hg Mitral E/A ratio, peak 0.85 Mitral valve area, PHT, DP 4.8 cm^2 Pulmonary veins Value Reference Pulmonary vein peak velocity, S 0.65 m/sec Pulmonary vein peak velocity, D 0.4 m/sec Pulmonary vein velocity ratio, peak, 1.6 S/D Pulmonary vein A-wave reversal peak 0.29 m/sec velocity Tricuspid valve Value Refer Anesthesia Assessment and Plan Anesthesia History Personal History: No History of Anesthesia Complications Family History: No Family History of Anesthesia Complications Exercise Tolerance Exercise Tolerance: Metabolic Equivalents>4 Pertinent Negatives Pertinent Negatives: No Symptoms of GERD Cardiac & Pulmonary Exam Cardiac Exam: Normal S1/S2 Heart Sounds Pulmonary Exam: Clear Bilateral Breath Sounds Implantable Cardiac Device Does patient have a Pacemaker or an ICD?: Yes Device Orthotic Aide:: [employer]onic Adapta Reason for Placement:: Tachy-Abner Syndrome Date of Last Device Interrogation:: 03/16/23 Airway Exam Known Difficult Airway: No Mallampati Class: 3 Mouth Opening: Normal (> 3cm) Thyromental Distance: Greater than 3 cm Neck Range of Motion: Full ROM Neck Circumference: Thick Teeth Condition: Generalized Poor Dentition (Many missing, patient denies loose, chipped, cracked, or broken) ASA Classification ASA Score: ASA 3 Emergency Case?: No NPO Status NPO Status: NPO Clears >2 hours, Solids >8 hours Anesthesia Plan Resuscitation Status: Full Code Anesthesia Technique: MAC Anesthesia Airway Planned: Natural Airway Monitors Used: Standard Monitors
[2023-08-10 12:42] VITALS: BMI 40.3
[2023-08-10] MEDS: Balanced Salt Soln.-PLUS 500 ML BAG OP (13:05)
[2023-08-10] MEDS: Lidocaine 1% Pres-Free 5 ML VIAL (13:06)
[2023-08-10] MEDS: Duovisc Viscoelastic System EACH 1 EACH (13:06)
[2023-08-10] MEDS: Tetracaine 0.5% 4 ML BTL OD (13:06)
[2023-08-10] MEDS: Trypan Blue 0.06% 0.5 ML SYR (13:08)
[2023-08-10] MEDS: Povidone-Iodine Ophth 30 ML BTL (13:08)
[2023-08-10 13:35] VITALS: BP 146/82; PULSE 63; RESP 20; TEMP 36.8; O2SAT 95
--- NOTE | 2023-08-10 13:38 | ROE_ITS ---
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 Absent red reflex secondary to dense cataract POST-OP DIAGNOSIS: same PROCEDURE: Cataract extraction using phacoemulsification with intraocular lens implant, right eye Pupillary dilation and iris stabilization with pupillary expansion device, right eye Capsular staining with VisionBlue SURGEON: Enrique Morton ANESTHESIA TYPE: Local By Surgeon and MAC Refer to Anesthesia Record ESTIMATED BLOOD LOSS: 0 PATHOLOGY: none sent COMPLICATIONS: None Patient was transported to: same day Patient's condition: stable Implants: Paramjit Clareon [id number] Indications: Progressive decreased vision due to cataract, right eye Findings: Dense cataract with absent red reflex, and poorly dilating pupil secondary to significant pseudoexfoliation syndrome Procedure Description: CATARACT SURGERY OPERATIVE REPORT PREOPERATIVE DIAGNOSIS: Dense nuclear cataract, right eye Absent red reflex, right eye secondary to dense cataract Poorly dilating pupil, 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 Pupillary dilation and iris stabilization with pupillary expansion device IOL: IOL Director Pharmacy Services/Model: Paramjit Clareon [id number] IOL Power: + 20.5 diopters IOL Serial Number: [id number] Optic Diameter: 6.0mm Haptic/Overall Diameter: 13.0mm PHACO INFO: Paramjit Centurion Vision System with OZil and Active Fluidics Cumulative Dispersed Energy (CDE): 16.0 seconds SURGEON: Enrique Morton MD, SAMEERA ANESTHESIA: Monitored Anesthesia Care (MAC), with local sub-tenon's anesthetic infiltration COMPLICATIONS: None SPECIMENS: None INDICATIONS FOR PROCEDURE: The patient is an 78-year-old male with history of diminished visual acuity in his right eye secondary to the development of a dense nuclear cataract. 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 The option of cataract surgery was offered to the patient and he wished to proceed. See office notes for detailed information. PROCEDURE: The correct surgical eye was identified and marked as the right eye and the pupil was dilated in the preoperative area using mydriatics and cycloplegics. The dilated pupil size was 3.5 mm. The patient elected to proceed without oral sedation. The patient was brought to the operating room where cardiopulmonary monitoring was instituted and surgical time-out was performed, confirming the correct operative eye and IOL power. Topical anesthesia was administered and ophthalmic povidone-iodine 5% was instilled into the conjunctival fornices. The paulina-ocular area was prepped with Betadine 10% solution and draped in the usual sterile fashion for intraocular surgery, including an aperture drape. A Tegaderm transparent film dressing was cut in half and used to cover the lashes and lid margins. Care was taken to sequester the lashes and lid margins under the Tegaderm dressing. A lid speculum was placed between the lids of the operative eye and the Paramjit LuxOR Revalia operating microscope was maneuvered into position. Yael scissors were then used to make a conjunctival buttonhole approximately 6mm posterior to the limbus in the inferonasal quadrant. Blunt dissection was carried out to expose bare sclera, and a blunt-tipped sub-tenon?s anesthesia cannula was introduced and passed posteriorly along the globe where non- preserved plain lidocaine was injected into posterior sub-Tenon?s space. A sideport knife was used to make a paracentesis port. Intraocular phenylephrine/lidocaine was injected into the anterior chamber. The anterior chamber was then filled with cohesive viscoelastic. A keratome knife was used to construct a two--plane clear corneal tunnel extending 2.0mm into clear cornea. A 7.0 mm pupillary expansion device was inserted into the pupillary space and engaged with the Koogler hook. The viscoelastic was then removed using the irrigation/aspiration handpiece, and VisionBlue was injected into the eye and left to sit for 60 seconds. The VisionBlue was then irrigated out with balanced salt solution, and replaced with dispersive viscoelastic. A flap was raised on the anterior capsule and capsulorhexis forceps were used to complete a continuous curvilinear capsulorhexis of 5.0 mm. Balanced salt solution was then used to perform cortical cleaving hydrodissection and nuclear hydrodelineation until the lens could be freely rotated within the capsular bag. The lens nucleus was then disassembled and removed within the capsular bag and iris plane using phacoemulsification. A deep groove was sculpted into the central nucleus, which was then cracked into 2 halves. The nucleus would not rotate, so additional hydrodissection was carried out. The nucleus was then rotated 180 degrees and the groove continued. Each Martin nucleus was then carefully brought up to the iris plane and subtyped and removed under additional dispersive viscoelastic protection. The zonules were noted to be quite loose with a very floppy capsule. Residual cortical material was removed using the I/A handpiece. The posterior capsule was carefully polished to remove as much residual lens epithelial cells as safely possible. The capsular bag was then inflated and the anterior chamber deepened with cohesive viscoelastic. The lens implant described above was inserted into the capsular bag using the Paramjit Autonome Injector. A Kuglen hook was used to dial the IOL into position. The capsular expansion device was then removed in the reverse order of its insertion. Residual viscoelastic was then removed first from posterior to the IOL, then from the anterior chamber using the I/A handpiece. The lens implant was noted to center nicely within the capsular bag. The incisions were stromally hydrated, and the anterior chamber was reformed using BSS. Then 0.5cc of moxifloxacin 1.0mg/ml were injected into the capsular bag and anterior chamber. The incisions were checked with a Weck spear and found to be secure. Several drops of ophthalmic povidone-iodine 5% were then applied to the eye followed by two drops of combination steroid/NSAID/antibiotic solution. The drapes were removed and a clear plastic protective eye shield was placed over the eye. The patient was then returned to [facility] Day Surgery in stable condition.
--- NOTE | 2023-08-10 13:38 | W.PM.DSUDISC ---
Date of service: 08/10/23 Time of Service: 13:38 Discharge Plan Disposition Patient Disposition: Home Discharge Details Attending Provider: Enrique Morton Primary Care Provider: Alethea Rodriguez Home Meds and New Rx's Prescriptions: No Action nystatin 100,000 unit/gram ointment 1 applic topical BID Qty: 30 3RF aspirin [Aspirin Low-Strength] 81 MG tablet,chewable 81 mg PO DAILY dofetilide 500 MCG capsule 500 mcg PO Q12H Qty: 60 12RF duloxetine 30 mg capsule,delayed release(DR/EC) 30 mg PO DAILY metformin 500 mg tablet 500 mg PO BID metoprolol succinate [Toprol XL] 100 mg tablet extended release 24 hr 100 mg PO BID melatonin 1 mg tablet See Rx Instructions PO HS PRN Rx Instructions: 1 mg at hs and may increase up to 3 mg orally bedtime PRN; warfarin 5 mg tablet 5 mg PO Q OTHER DAY Rx Instructions: on odd numbered days furosemide [Lasix] 20 mg tablet 10 mg PO DAILY rosuvastatin [Crestor] 5 mg tablet 2.5 mg PO EVERY OTHER DAY Patient Comments: CUT DOSE HIMSELF TO 2.5MG QOD warfarin [Coumadin] 5 mg tablet 2.5 mg PO DIRECTED levothyroxine 200 mcg tablet 200 mcg PO DAILY Patient Comments: TAKE 1 TABLET BY MOUTH ONCE DAILY ON AN EMPTY STOMACH WITH 25MCG TABLET, NO FOOD OR OTHER MEDICATION FOR ATLEAST 30-60 MINUTES AFTER TAKING levothyroxine 25 mcg tablet 25 mcg PO DAILY Patient Comments: TAKE 1 TABLET BY MOUTH ONCE DAILY IN THE MORNING,IN ADDITION TO 200 MCG FOR TOTAL DOSE OF 225 MCG 1 HOUR BEFORE OTHER MEDICATIONS ON EMPTY STOMACH losartan 25 mg tablet 25 mg PO DAILY Patient Comments: TAKE 1 TABLET BY MOUTH ONCE DAILY clotrimazole [Antifungal (clotrimazole)] 1 % cream 1 applic topical BID Discharge Instructions Stand Alone Forms: [facility] Post-Op Heather Tom ([facility]) Discharge Orders Discharge Orders: Discharge Order (Routine); Ordered 08/10/23 Ordered By: Enrique Morton DS: Diagnosis Discharge Diagnosis (1) Nuclear age-related cataract, right eye: Status: Resolved
--- NOTE | 2023-08-10 14:40 | W.ANESPOSTOP ---
Postoperative Evaluation Date, Time and Location Date Performed: 08/10/23 Time Performed: 14:40 Patient Location: Day Surgery Unit Vital Signs Most Recent Imported Vital Signs: Most Recent Vital Signs Temp Pulse Resp BP Pulse Ox 36.8 C 63 20 146/82 H 95 08/10/23 13:35 08/10/23 13:35 08/10/23 13:35 08/10/23 13:35 08/10/23 13:35 Pain Score Most Recent Pain Score: Most Recent Pain Score Pain Level 0 08/10/23 13:35 Assessment Mental Status: Awake (Alert & Oriented to Patient Baseline) Airway and Respiratory Function: Patent airway with normal (patient baseline) respiratory exam Cardiovascular Function: Hemodynamically Stable Hydration Status: Adequately Hydrated Nausea & Vomiting: No Nausea or Vomiting Pain: Pt. Denies Any Pain Peripheral Nerve Block: Patient did not receive a nerve block
== END 2023-08-10 14:12 | disposition home or self-care (01) ==
LOC: SUR 10:52
PROVIDERS: PCP Family Medicine; Visit Provider Ophthalmology
PROC: (CPT 66982; principal; 2023-08-10 12:45)
DX: H25.11 Age-related nuclear cataract, right eye (principal); K21.9 Gastro-esophageal reflux disease without esophagitis; G47.30 Sleep apnea, unspecified; I10 Essential (primary) hypertension; H40.1410 Capsular glaucoma with pseudoexfoliation of lens, right eye, stage unspecified
CPT/HCPCS: 66982; 00123; V2632; J2003

== ENCOUNTER 2023-09-13 17:49 | Outpatient (REF) | payer MEDICARE, SELFPAY ==
[2023-09-13 21:23] LABS: TSH (W/Ref FT4) 12.74 uIU/mL (0.36-3.74)
[2023-09-13 22:18] LABS: FREE T4 1.03 ng/dL (0.76-1.46)
[2023-09-14 11:17] LABS: Lyme Ab w Rflx to Lyme Confirm Negative (Negative)
== END 2023-09-13 17:50 | disposition home or self-care (01) ==
LOC: NCHCN 17:49
PROVIDERS: PCP Family Medicine; Visit Provider Family Medicine
DX: E03.9 Hypothyroidism, unspecified (principal); R53.83 Other fatigue
CPT/HCPCS: 84439; 84443; 86618

== ENCOUNTER 2023-11-09 01:20 | Outpatient (CLI) | payer MEDICARE, SELFPAY ==
[2023-11-09 10:31] LABS: HCT 46.7 % (40.0-50.0); HGB 15.6 g/dL (13.5-17.5); MCH 30.6 pg (27.0-33.0); MCHC 33.4 % (32.0-36.0); MCV 92 fL (80-95); MPV 10.6 fL (8.0-11.0); Platelet Count 194 10^3/uL (130-400); RBC 5.09 10^6/uL (4.36-5.78); RDW 13.8 % (11.8-14.1); RDW-SD 46.5 fL; WBC 7.73 10^3/uL (4.4-10.8)
[2023-11-09 11:34] LABS: ALT 16 U/L (16-63); AST 16 U/L (15-37); Albumin 3.7 g/dL (3.4-5.0); Alkaline Phosphatase 60 U/L (46-116); Anion Gap 9.1 mmol/L (3-11); BUN 31 mg/dL (7-18); Bilirubin, Total 0.74 mg/dL (0.2-1.0); CO2 26.9 mmol/L (21.0-32.0); CREATININE 1.6 mg/dL (0.70-1.30); Calcium 9.6 mg/dL (8.5-10.1); Chloride 104 mmol/L (98-107); Estimated GFR 43.29 (mL/min/1.73m2); Glucose 116 mg/dL (74-106); Potassium 4.4 mmol/L (3.5-5.1); Sodium 140 mmol/L (136-145); TSH (W/Ref FT4) 19.69 uIU/mL (0.36-3.74); Total Protein 7.5 g/dL (6.4-8.2)
[2023-11-09 11:55] LABS: FREE T4 0.89 ng/dL (0.76-1.46)
[2023-11-09 16:07] LABS: Hemoglobin A1C 6.8 % (<5.7)
[2023-11-09 18:53] LABS: PSA, Diagnostic 19.4 ng/mL (<=6.5)
== END 2023-11-09 01:21 | disposition home or self-care (01) ==
LOC: LBO 01:20
PROVIDERS: PCP Family Medicine; Visit Provider Urology
DX: R97.20 Elevated prostate specific antigen [PSA] (principal); E03.9 Hypothyroidism, unspecified; N18.31 Chronic kidney disease, stage 3a; E11.9 Type 2 diabetes mellitus without complications
CPT/HCPCS: 36415; 80053; 85027; 83036; 84153; 84439; 84443

== ENCOUNTER → 2023-11-16 10:14 | Outpatient (BNVA) | payer MEDICARE, SELFPAY | PROVIDERS: PCP Family Medicine; Visit Provider Urology | DX: N42.89 Other specified disorders of prostate (principal); R97.20 Elevated prostate specific antigen [PSA] | CPT/HCPCS: 99214 ==

== ENCOUNTER → 2023-12-06 15:46 | Outpatient (BNVA) | payer MEDICARE, SELFPAY | PROVIDERS: PCP Family Medicine; Referring Provider Family Medicine; Visit Provider Urology | DX: R10.32 Left lower quadrant pain (principal) | CPT/HCPCS: 99213 ==

== ENCOUNTER → 2023-12-28 09:23 | Outpatient (BNVA) | payer MEDICARE, SELFPAY | PROVIDERS: PCP Family Medicine; Referring Provider Family Medicine; Visit Provider Urology | DX: R10.32 Left lower quadrant pain (principal) | CPT/HCPCS: 99213 ==

== ENCOUNTER 2024-01-09 15:07 | Outpatient (REF) | payer MEDICARE, SELFPAY ==
[2024-01-09 14:57] LABS: Abs Immature Grans 0.07 10^3/uL (0.0-0.06); Absolute Basophil Count 0.08 10^3/uL (0.0-0.2); Absolute Eosinophil Count 0.39 10^3/uL (0.0-0.7); Absolute Lymphocyte Count 1.94 10^3/uL (1.2-3.4); Absolute Monocyte Count 1.04 10^3/uL (0.1-0.8); Absolute Neutrophil Count 4.17 10^3/uL (1.2-6.7); Eosinophils % 5.1 %; HCT 47.4 % (40.0-50.0); HGB 15.9 g/dL (13.5-17.5); Immature Grans % 0.9 %; Lymphocytes % 25.2 %; MCH 30.3 pg (27.0-33.0); MCHC 33.5 % (32.0-36.0); MCV 91 fL (80-95); MPV 11.4 fL (8.0-11.0); Monocytes % 13.5 %; Neutrophils % 54.3 %; Platelet Count 200 10^3/uL (130-400); RBC 5.24 10^6/uL (4.36-5.78); RDW 13.5 % (11.8-14.1); RDW-SD 45.3 fL; WBC 7.69 10^3/uL (4.4-10.8)
[2024-01-09 15:44] LABS: ALT 16 U/L (16-63); AST 17 U/L (15-37); Albumin 3.6 g/dL (3.4-5.0); Alkaline Phosphatase 57 U/L (46-116); BUN 25 mg/dL (7-18); Bilirubin, Total 0.75 mg/dL (0.2-1.0); CREATININE 1.5 mg/dL (0.70-1.30); Calcium 9.4 mg/dL (8.5-10.1); Chloride 105 mmol/L (98-107); Estimated GFR 46.77 (mL/min/1.73m2); Glucose 112 mg/dL (74-106); Potassium 4.6 mmol/L (3.5-5.1); Sodium 141 mmol/L (136-145); Total Protein 6.8 g/dL (6.4-8.2)
== END 2024-01-09 15:08 | disposition home or self-care (01) ==
LOC: NCHCN 15:07
PROVIDERS: PCP Family Medicine; Visit Provider Family Medicine
DX: R19.7 Diarrhea, unspecified (principal)
CPT/HCPCS: 80053; 85025

== ENCOUNTER 2024-01-11 00:14 | Outpatient (CLI) | payer MEDICARE, SELFPAY ==
[2024-01-11] MEDS: Barium Sulfate 2% W/V-Creamy Vanilla Smoothie 450 ML BTL PO ×2 (09:59→10:00)
[2024-01-11] MEDS: Normal Saline - Diluent 50 ML VIAL IJ (12:17)
--- NOTE | 2024-01-11 12:18 | DI.CT_ITS ---
Exam(s) CT ABDOMEN PELVIS W EXAM: CT ABDOMEN PELVIS W CLINICAL HISTORY: LLQ PAIN, R10.32. TECHNIQUE: Imaging Protocol: Axial computed tomography images with coronal and sagittal reformatted images were created and reviewed CONTRAST MATERIAL: Intravenous: Omnipaque 350 Contrast volume:100 ml Oral: yes / COMPARISON: CT CT ABDOMEN PELVIS WO from 09/15/2020 FINDINGS: ABDOMEN and PELVIS: Lung Bases: No acute findings. Sternal wires. Pacemaker leads. Liver: Normal density. No suspicious mass. Gallbladder and biliary tract: No radiodense calculus. No biliary dilation. Pancreas: Normal density. No abnormal calcifications or inflammatory process. No evidence of mass. Spleen: Normal. Kidneys: Atrophic right kidney. No radiodense stones. No obstructive uropathy. No suspicious masses seen. Right renal cysts again noted. Calcification lower pole left kidney. Adrenal glands: No masses seen. Vasculature: Aortic stent again noted. Atherosclerotic changes. Soft tissues: Tiny fat containing umbilical hernia. Bladder: Mild wall thickening. No calculi.No focal mass. Bowel: No obstruction. No bowel wall thickening. Appendix not seen diverticulosis greatest of the s igmoid. Peritoneal cavity: No ascites. No focal collection. No mesenteric inflammatory response. Bones: Degenerative changes in the spine. Reproductive organs: Unremarkable. Lymph nodes: No pathologically enlarged lymph nodes. IMPRESSION:: No acute abnormality in the abdomen or pelvis. Diverticulosis. No evidence of diverticulitis. RADIATION DOSE DELIVERED: Total DLP DATA REPOSITORY: All CT scans at this facility are submitted to the National Radiology Data Registry (NRDR) Dose Index Registry (DIR) with the [employer] (ACR). RADIATION OPTIMIZATION: All CT scans at this facility use at least one of these dose optimization te chniques: automated exposure control; mA and/or kV adjustment per patient size (includes targeted exa ms where dose is matched to clinical indication); or iterative reconstruction.
== END 2024-01-11 00:34 ==
PROVIDERS: PCP Family Medicine; Visit Provider Family Medicine
DX: K57.30 Diverticulosis of large intestine without perforation or abscess without bleeding (principal)
CPT/HCPCS: 74177

== ENCOUNTER 2024-01-29 19:40 | Outpatient (REF) | payer MEDICARE, SELFPAY ==
[2024-01-29 17:46] LABS: C Diff PCR Negative (Negative)
[2024-01-31 00:12] LABS: Campylobacter PCR Negative (Negative); Salmonella PCR Negative (Negative); Shiga Toxin PCR Negative (Negative); Shigella/Enteroinvasive Ecoli Negative (Negative)
[2024-02-01 22:04] LABS: Calprotectin <50.0 mcg/g
== END 2024-01-29 19:41 | disposition home or self-care (01) ==
LOC: NCHCN 19:40
PROVIDERS: PCP Family Medicine; Visit Provider Family Medicine
DX: R19.7 Diarrhea, unspecified (principal)
CPT/HCPCS: 87493; 87505; 83993

== ENCOUNTER → 2024-02-25 08:17 | Outpatient (BNVA) | payer MEDICARE, SELFPAY | PROVIDERS: PCP Family Medicine; Referring Provider Family Medicine; Visit Provider Urology | DX: N42.89 Other specified disorders of prostate (principal); R97.20 Elevated prostate specific antigen [PSA] | CPT/HCPCS: 99443 ==

== ENCOUNTER → 2024-03-13 13:32 | Outpatient (BNVA) | payer MEDICARE, SELFPAY | PROVIDERS: PCP Family Medicine; Referring Provider Family Medicine; Visit Provider Urology | DX: R97.20 Elevated prostate specific antigen [PSA] (principal); C61 Malignant neoplasm of prostate | CPT/HCPCS: 55700; 76872 ==

== ENCOUNTER 2024-03-13 14:29 | Outpatient (REF) | payer MEDICARE, SELFPAY ==
--- NOTE | 2024-03-13 13:00 | PROST_PTH ---
PATIENT: Sukhdev Vazquez LOC: [facility] U#:[id number] AGE/SX: 78/M ROOM: RE03/13/[address]: Tee Van MD : 1945 BED: DIS: 03/13/2024 SPEC #: [id number] RECD: 03/13/24 17:26 STATUS: ALEXI RE #: [id number] JLUIS: 03/13/24 13:[address]: Tee Van DEPT: Surgical Specimen RECD BY: Elzbieta Bunn ENTERED: 03/13/24 17:28 SP TYPE: PROST OTHR DR: Alethea Rodriguez Tissues: 1 - PROSTATE NEEDLE BIOPSY 2 - PROSTATE NEEDLE BIOPSY 3 - PROSTATE NEEDLE BIOPSY 4 - PROSTATE NEEDLE BIOPSY 5 - PROSTATE NEEDLE BIOPSY 6 - PROSTATE NEEDLE BIOPSY 7 - PROSTATE NEEDLE BIOPSY 8 - PROSTATE NEEDLE BIOPSY 9 - PROSTATE NEEDLE BIOPSY 10 - PROSTATE NEEDLE BIOPSY 11 - PROSTATE NEEDLE BIOPSY 12 - PROSTATE NEEDLE BIOPSY Procedures: GROSS AND MICRO LEVEL 4 Comments: [id number]
== END 2024-03-13 14:30 | disposition home or self-care (01) ==
LOC: LBN 14:29
PROVIDERS: PCP Family Medicine; Visit Provider Urology
DX: C61 Malignant neoplasm of prostate (principal); R97.20 Elevated prostate specific antigen [PSA]
CPT/HCPCS: 88305

== ENCOUNTER → 2024-03-28 11:18 | Outpatient (BNVA) | payer MEDICARE, SELFPAY | PROVIDERS: PCP Family Medicine; Referring Provider Family Medicine; Visit Provider Urology | DX: C61 Malignant neoplasm of prostate (principal) | CPT/HCPCS: 99443 ==

== ENCOUNTER 2024-04-03 22:30 | Outpatient (REF) | payer MEDICARE, SELFPAY ==
[2024-04-03 22:55] LABS: Hemoglobin A1C 6.7 % (<5.7)
[2024-04-03 23:04] LABS: Anion Gap 7.1 mmol/L (3-11); BUN 26 mg/dL (7-18); CO2 28.9 mmol/L (21.0-32.0); CREATININE 1.5 mg/dL (0.70-1.30); Calcium 9.3 mg/dL (8.5-10.1); Chloride 105 mmol/L (98-107); Estimated GFR 46.77 (mL/min/1.73m2); Glucose 113 mg/dL (74-106); Magnesium 1.9 mg/dL (1.8-2.4); Potassium 4.5 mmol/L (3.5-5.1); Sodium 141 mmol/L (136-145); TSH (W/Ref FT4) 0.39 uIU/mL (0.36-3.74)
== END 2024-04-03 22:31 | disposition home or self-care (01) ==
LOC: NCHCN 22:30
PROVIDERS: PCP Family Medicine; Visit Provider Family Medicine
DX: E11.9 Type 2 diabetes mellitus without complications (principal)
CPT/HCPCS: 80048; 83036; 83735; 84443

== ENCOUNTER → 2024-05-13 11:32 | Outpatient (BNVA) | payer MEDICARE, SELFPAY | PROVIDERS: PCP Family Medicine; Referring Provider Family Medicine; Visit Provider Urology | DX: C61 Malignant neoplasm of prostate (principal) | CPT/HCPCS: 99443 ==

== ENCOUNTER → 2024-05-30 14:40 | Outpatient (BNVA) | payer MEDICARE, SELFPAY | PROVIDERS: PCP Family Medicine; Referring Provider Family Medicine; Visit Provider Urology | DX: C61 Malignant neoplasm of prostate (principal) | CPT/HCPCS: 96402; J9217 ==

== ENCOUNTER 2024-06-02 13:09 | Outpatient (REF) | payer MEDICARE, SELFPAY ==
[2024-06-02 15:38] LABS: FREE T4 1.27 ng/dL (0.76-1.46); TSH 0.11 uIU/mL (0.36-3.74)
== END 2024-06-02 13:10 | disposition home or self-care (01) ==
LOC: NCHCN 13:09
PROVIDERS: PCP Family Medicine; Visit Provider Family Medicine
DX: E03.9 Hypothyroidism, unspecified (principal); M31.6 Other giant cell arteritis
CPT/HCPCS: 85652; 84439; 84443

== ENCOUNTER 2024-06-06 22:18 | Outpatient (REF) | payer MEDICARE, SELFPAY ==
[2024-06-06 21:06] LABS: ESR 8 mm/hr (0-20)
== END 2024-06-06 22:19 | disposition home or self-care (01) ==
LOC: NCHCN 22:18
PROVIDERS: PCP Family Medicine; Visit Provider Family Medicine
DX: M31.6 Other giant cell arteritis (principal)
CPT/HCPCS: 85652

== ENCOUNTER → 2024-07-04 14:00 | Outpatient (BNVA) | payer MEDICARE, SELFPAY | PROVIDERS: PCP Family Medicine; Visit Provider Urology | DX: C61 Malignant neoplasm of prostate (principal) | CPT/HCPCS: 96402; J9217 ==

== ENCOUNTER 2024-07-04 14:43 | Outpatient (CLI) | payer MEDICARE, SELFPAY ==
[2024-07-04 22:54] LABS: PSA, Diagnostic 1.9 ng/mL (<=6.5)
== END 2024-07-04 14:44 | disposition home or self-care (01) ==
LOC: LBO 14:44
PROVIDERS: PCP Family Medicine; Visit Provider Urology
DX: C61 Malignant neoplasm of prostate (principal)
CPT/HCPCS: 36415; 84153

== ENCOUNTER 2024-07-28 21:45 | Outpatient (REF) | payer MEDICARE, SELFPAY ==
[2024-07-28 22:28] LABS: Abs Immature Grans 0.08 10^3/uL (0.0-0.06); Absolute Basophil Count 0.08 10^3/uL (0.0-0.2); Absolute Eosinophil Count 0.35 10^3/uL (0.0-0.7); Absolute Lymphocyte Count 1.78 10^3/uL (1.2-3.4); Absolute Monocyte Count 1.13 10^3/uL (0.1-0.8); Eosinophils % 4.5 %; HCT 45.8 % (40.0-50.0); HGB 15.3 g/dL (13.5-17.5); Lymphocytes % 23.1 %; MCH 29.8 pg (27.0-33.0); MCHC 33.4 % (32.0-36.0); MCV 89 fL (80-95); MPV 11.3 fL (8.0-11.0); Monocytes % 14.6 %; Neutrophils % 55.8 %; Platelet Count 204 10^3/uL (130-400); RBC 5.13 10^6/uL (4.36-5.78); RDW 13.3 % (11.8-14.1); RDW-SD 43.7 fL; WBC 7.72 10^3/uL (4.4-10.8)
[2024-07-28 22:46] LABS: Anion Gap 7.6 mmol/L (3-11); BUN 30 mg/dL (7-18); CO2 29.4 mmol/L (21.0-32.0); CREATININE 1.3 mg/dL (0.70-1.30); Calcium 9.5 mg/dL (8.5-10.1); Chloride 106 mmol/L (98-107); Estimated GFR 55.53 (mL/min/1.73m2); Glucose 138 mg/dL (74-106); Potassium 4.6 mmol/L (3.5-5.1); Sodium 143 mmol/L (136-145); TSH (W/Ref FT4) 0.01 uIU/mL (0.36-3.74)
[2024-07-28 22:50] LABS: C-Reactive Protein < 0.50 mg/dL (<or=0.5)
[2024-07-29 18:30] LABS: T4, Free 2.3 ng/dL (0.8-2.2)
== END 2024-07-28 21:46 | disposition home or self-care (01) ==
LOC: NCHCN 21:45
PROVIDERS: PCP Family Medicine; Visit Provider Family Medicine
DX: I48.91 Unspecified atrial fibrillation (principal); R51.9 Headache, unspecified; E03.9 Hypothyroidism, unspecified
CPT/HCPCS: 80048; 84439; 84443; 85025; 86140

== ENCOUNTER 2024-07-30 03:37 | Outpatient (CLI) | payer MEDICARE, SELFPAY ==
--- NOTE | 2024-07-30 | DI.RAD_ITS ---
Exam(s) XR CHEST 2V PA LATERAL EXAM: XR CHEST 2V PA LATERAL CLINICAL HISTORY: SOB,MUFFLED LUNG EXAM AT BASES,R06.02. TECHNIQUE: 2D digital imaging was performed. COMPARISON: No exams were available for comparison FINDINGS: 2 views: Again noted are sternotomy wires and evidence of previous CABG. Bipolar right subclavian pacemaker i s again noted with lead tips in RA and RV, unchanged. Heart size is upper normal. The mediastinum is not widened. There is mild scarring or atelectasis in the bilateral costophrenic angles, unchanged. No new infilt rates nor pleural effusions. No evidence of pulmonary edema. IMPRESSION: Findings as above but no acute pulmonary findings nor significant change compared to 10/18/2022.. DATA REPOSITORY: RADIATION DOSE DELIVERED:
== END 2024-07-30 03:57 ==
LOC: DI 03:38
PROVIDERS: PCP Family Medicine; Visit Provider Student in an Organized Health Care Education/Training Program
DX: R06.02 Shortness of breath (principal)
CPT/HCPCS: 71046

== ENCOUNTER → 2024-08-15 13:43 | Outpatient (BNVA) | payer MEDICARE, SELFPAY | PROVIDERS: PCP Family Medicine; Visit Provider Urology | DX: C61 Malignant neoplasm of prostate (principal) | CPT/HCPCS: 96402; J9217 ==

== ENCOUNTER 2024-09-08 01:53 | Outpatient (CLI) | payer MEDICARE, SELFPAY ==
--- NOTE | 2024-09-08 14:30 | DI.US_ITS ---
APPROVED REPORT EXAM: Comprehensive 2D, Doppler, and color-flow Echocardiogram Patient Location: Out-Patient [employer] Access Developer: Saravanan Hazel RDCS (AE) Indications: SOB Other Information Study Quality: Technically Difficult. Technically limited study due to body habitus. Conclusion Technically difficult and suboptimal study Left ventricle appears normal in size wall thickness and overall systolic function. Ejection fractio n is estimated at 50 to 55% Normal right ventricular size and function Both atria are normal in size Aortic valve is sclerotic and trileaflet with trace regurgitation Ascending aorta measures 4.18 cm Wall motion Left Ventricle The left ventricle is normal size. The left ventricular systolic function is normal. The left ventric ular ejection fraction is within the normal range. There is normal left ventricular wall thickness. U nable to assess segmental wall motion There is no ventricular septal defect visualized. LVEF is 50-55 %. Right Ventricle The right ventricle is normal size. Right ventricular systolic function is grossly normal. Atria The left atrium size is normal. The right atrium size is normal. The interatrial septum is intact wit h no evidence for an atrial septal defect. Aortic Valve The aortic valve is sclerotic. Aortic valve is trileaflet. There is no aortic valvular stenosis. Trac e aortic regurgitation. Mitral Valve The mitral valve is normal in structure. No evidence of mitral valve stenosis. There is no mitral abdiel ve regurgitation noted. Tricuspid Valve The tricuspid valve is normal in structure. There is no tricuspid valve stenosis. Trace tricuspid reg urgitation. Pulmonic Valve The pulmonary valve is normal in structure. There is no pulmonic valvular stenosis. There is no pulmo teressa valvular regurgitation. Great Vessels The aortic root is normal in size. The ascending aorta is moderately dilated. IVC is normal in size a nd collapses >50% with inspiration. Pericardium There is no pericardial effusion. 2D Dimensions Ao Root d 3.46 cm M: 3.1 - 3.7 Ao Asc Diam d 4.18 cm M: 2.6 - 3.4 LA Volume LA Length A4C 5.7 cm LA Length A2C 5.5 cm LA Area A4C s 12.26 cm2 LA Area A2C s 12.16 cm2 LA Vol A4C A-L 22.21 mL LA Vol A2C A-L 23.02 mL LA Vol Biplane A-L 23.2 mL LA Vol/BSA A4C A-L LA Vol/BSA A2C A-L LA Vol/BSA BP A-L 9.5 mL/m2 LA Vol A4C MOD 21.1 mL LA Vol A2C MOD 21.9 mL LA Vol BP MOD 21.8 mL RA Volume RA Area A4C 12.7 cm2 RA ESV A4C (A-L) 26.2mL RA Vol/BSA A4C A-L RA Length A4C 5.3 cm RA ESV A4C (MOD) 25.1mL LV Diastology MV E' medial 0.051 (>0.07 m/s) MV E Vmax 0.58 (0.4-1.3 m/s) MV E/E' MED 11.37 (<14) MV A Vmax 0.90 (0.4-1.3 m/s) MV E' lateral 0.065 (>0.1 m/s) E/A Ratio 0.6 MV E/E' LAT 8.93 (<14) MV E' Average 0.058 m/s MV E/E'(average) 10.01 Aortic Valve AoV Vmax 1.34 m/s LVOT Vmax 0.90 m/s AoV Peak Grad 7.2 mmHg LVOT Peak Grad 3.2 mmHg AoV Area (Vmax) 2.10 cm2 LVOT VTI 0.206 m AoV VTI 0.246 m LVOT Mean Grad 1.6 mmHg AoV Mean Eduardo. 0.88 m/s LVOT SV 64.35 mL AoV Mean Grad 3.5 mmHg LVOT Diam s 1.95 cm AoV Area (VTI) 2.61 cm2 AV Regurg Peak Gr. 7.19 mmHg Velocity Ratio 0.67 Mitral Valve MV DT 314 (160-240 msec) Tricuspid Valve TV S' 0.10 m/s
== END 2024-09-08 02:13 ==
LOC: DI 01:53
PROVIDERS: PCP Family Medicine; Visit Provider Internal Medicine Cardiovascular Disease
DX: R06.02 Shortness of breath (principal)
CPT/HCPCS: 93306

== ENCOUNTER → 2024-09-18 14:35 | Outpatient (BNVA) | payer MEDICARE, SELFPAY | PROVIDERS: PCP Family Medicine; Visit Provider Urology | DX: C61 Malignant neoplasm of prostate (principal) | CPT/HCPCS: 96402; J9217 ==

== ENCOUNTER 2024-10-02 16:12 | Outpatient (CLI) | payer MEDICARE, SELFPAY ==
[2024-10-03 09:17] LABS: PSA, Diagnostic 0.2 ng/mL (<=6.5)
[2024-10-08 10:53] LABS: Testosterone, Total <7.0 ng/dL (240-950)
== END 2024-10-02 16:13 | disposition home or self-care (01) ==
LOC: LBO 16:15
PROVIDERS: PCP Family Medicine; Visit Provider Urology
DX: C61 Malignant neoplasm of prostate (principal)
CPT/HCPCS: 36415; 84403; 84153

== ENCOUNTER 2024-10-21 02:16 | Outpatient (CLI) | payer MEDICARE, SELFPAY ==
[2024-10-21 17:12] LABS: FREE T4 1.01 ng/dL (0.76-1.46); TSH 1.44 uIU/mL (0.36-3.74)
== END 2024-10-21 02:17 | disposition home or self-care (01) ==
LOC: LBO 02:16
PROVIDERS: PCP Family Medicine; Visit Provider Student in an Organized Health Care Education/Training Program
DX: E03.9 Hypothyroidism, unspecified (principal)
CPT/HCPCS: 36415; 84439; 84443

== ENCOUNTER → 2024-11-25 13:49 | Outpatient (BNVA) | payer MEDICARE, SELFPAY | PROVIDERS: PCP Family Medicine; Referring Provider Family Medicine; Visit Provider Urology | DX: C61 Malignant neoplasm of prostate (principal) | CPT/HCPCS: 96402; J9217 ==

== ENCOUNTER 2024-12-05 07:56 | Day surgery (SDC) | payer MEDICARE, SELFPAY ==
[2024-12-05 08:10] VITALS: BP 176/97; PULSE 91; RESP 22; TEMP 36.2; O2SAT 96
[2024-12-05] MEDS: Tropicam./Phenyleph. (1/2.5%) 5 ML BTL OS ×3 (08:51→09:04)
--- NOTE | 2024-12-05 09:01 | W.ANESPRE ---
General Info Date of Service Date Performed: 12/05/24 Height: 5 ft 10.5 in Weight: 129.3 kg Body Mass Index (BMI): 40.3 Surgical Procedure: Operation Date: 12/05/24 10:40 Proposed Procedure Side Surgeon p Cataract Extraction with IOL Implant Left Enrique Morton MD Meds Allergies and Home Medications Allergies Allergy/AdvReac Type Severity Reaction Status Date / Time tetracycline Allergy Severe Anaphylaxis Verified 12/05/24 08:37 gemfibrozil Allergy Mild myalgias Verified 12/05/24 08:37 atorvastatin (From Lipitor) AdvReac Mild myalgia Verified 12/05/24 08:37 fenofibrate (From Tricor) AdvReac Mild decreased Verified 12/05/24 08:37 pulse simvastatin AdvReac Mild myalgia Verified 12/05/24 08:37 doxycycline calcium (From AdvReac Unknown bradycardia Verified 12/05/24 08:37 Vibramycin) nitroglycerin (From AdvReac unknown Verified 12/05/24 08:37 Nitroglyn) Home Medication ?Medication ?Instructions ?Recorded Aspirin Low-Strength 81 mg 81 mg PO DAILY 08/29/12 chewable tablet (aspirin) dofetilide 500 mcg capsule 500 mcg PO Q12H #60 tab-caps 12/07/17 duloxetine 30 mg capsule,delayed 30 mg PO DAILY 02/04/21 release rosuvastatin 5 mg tablet (Crestor) 2.5 mg PO EVERY OTHER DAY 06/08/21 nystatin 100,000 unit/gram topical 1 applic topical BID #30 grams 06/02/22 ointment melatonin 1 mg tablet See Rx Instructions PO HS PRN 07/17/22 metformin 500 mg tablet 500 mg PO BID 07/17/22 metoprolol succinate 100 mg 100 mg PO BID 07/17/22 tablet,extended release 24 hr (Toprol XL) warfarin 5 mg tablet 5 mg PO Q OTHER DAY 02/21/23 warfarin 5 mg tablet (Coumadin) 2.5 mg PO DIRECTED 03/22/23 clotrimazole 1 % topical cream 1 applic topical BID 08/07/23 (Antifungal (clotrimazole)) levothyroxine 200 mcg tablet 200 mcg PO DAILY 08/07/23 losartan 25 mg tablet 25 mg PO DAILY 08/07/23 furosemide 20 mg tablet (Lasix) 10 mg PO DAILY PRN 11/16/23 levothyroxine 25 mcg tablet 50 mcg PO DAILY 11/16/23 nystatin 100,000 unit/gram topical 1 applic topical TID #30 grams 12/28/23 powder Current Visit Medications: Current Medications Generic Name Dose Route Start Last Admin Trade Name Bud PRN Reason Stop Dose Admin Acetaminophen 1,000 mg 12/05/24 06:00 Acetaminophen 500 Mg Tab PO 01/04/25 05:59 Q4H PRN PRN Balanced Salt Solution 500 ml 12/05/24 06:00 Balanced Salt Soln.-Plus 500 Ml Bag OP 01/04/25 05:59 DIRECTED [facility] Miscellaneous Medication 0 ml 12/05/24 06:00 Prednisolone 1%, Moxifloxacin 0.5%, Bromfenac 0.09% 5.6ml Btl OS 01/04/25 05:59 DIRECTED [facility] Miscellaneous Medication 0 ml 12/05/24 06:00 12/05/24 08:57 Tropicam./Phenyleph. (1/2.5%) 5 Ml Btl OS 01/04/25 05:59 1 drp DIRECTED [facility] Administration Tetracaine HCl 0 ml 12/05/24 06:00 Tetracaine 0.5% 4 Ml Btl OS 01/04/25 05:59 DIRECTED [facility] PFSH Active Problems Active Problems: Problem Status Onset Code Nuclear age-related cataract, left eye Acute H25.12 Nuclear age-related cataract, right eye Resolved H25.11 Tubular adenoma of colon Acute ~04/02/23 D12.6 Prostate cancer Chronic C61 Corns and callosities Acute L84 Nail dystrophy Acute L60.3 BMI 35.0-35.9,adult Acute Z68.35 Lichen sclerosus Acute L90.0 Adenoma of colon Acute D12.6 IBS (irritable bowel syndrome) Chronic K58.9 Chronic renal insufficiency Chronic N18.9 GERD (gastroesophageal reflux disease) Chronic K21.9 Major depression Chronic F32.9 Diabetes mellitus Chronic 05/24/22 E11.9 Iliotibial band syndrome affecting left lower leg Acute M76.32 Low back pain Acute M54.50 Degenerative arthritis of lumbar spine Acute M47.816 Trochanteric bursitis of left hip Acute M70.62 Tendonitis of left rotator cuff Acute M75.82 Right rotator cuff tendonitis Acute M75.81 Tinnitus, bilateral Acute H93.13 Impairment of speech discrimination Acute H93.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, bilateral Acute H90.3 Sleep apnea Acute 11/19/14 G47.30 Sinus node dysfunction Acute 11/19/14 I49.5 Paroxysmal atrial fibrillation Acute 11/19/14 I48.0 Obesity Acute 11/19/14 E66.9 Nonsustained ventricular tachycardia Acute 02/16/17 I47.2 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 Acute 04/07/16 Z79.899 Essential hypertension Acute 12/06/15 I10 Chronic anticoagulation Acute 04/07/16 Z79.01 Cardiac pacemaker in situ Acute 01/29/15 Z95.0 CAD (coronary artery disease) Chronic 11/19/14 I25.10 Peripheral vascular disease Chronic Vertigo Chronic Peripheral neuropathy Acute Hypothyroidism Active E03.9 Peptic ulcer Active K27.9 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 History of smoking-35 pack year-quit 1996 History of - coronary artery bypass grafting CABG x 3. [place] age 50. Family hx CAD -brother age 50, father age 45 and mother age 62 all dying from MIs. Stress MIBI done September 2012 negative. Echocardiogram with normal ejection fraction in September 2012 Surgical History Surgical History Hx of CABG (11/19/14) 2010-[facility] [place] TKA Pacemaker 2014-[facility] [place]. Endovascular AAA repair 2005 Coronary Stent 1996 Colonoscopy - MAC (03/2023) polyps 11/12/17 Colonoscopy - IV Sedation 2010- polyp Coronary Artery Bypass Gaft (CABG) ANDRADE-LAD x2, SVG-Diag1 Appendectomy Tobacco Smoking/Tobacco Use Status: Former Tobacco Use Alcohol Alcohol Intake: current Alcohol intake frequency: holidays/special occasions only Substance Use Substance use: Never Substance use type: does not use Vital Signs and Lab Results Vital Signs Most Recent Vital Signs in EMR: Most Recent Vital Signs Temp Pulse Resp BP Pulse Ox 36.2 C L 91 H 22 176/97 H 96 12/05/24 08:10 12/05/24 08:10 12/05/24 08:10 12/05/24 08:10 12/05/24 08:10 Point of Care Results Point of Care Results: Finger Stick Blood Glucose 156 12/05/24 08:23 Imaging and Studies Imaging and Studies Study information below may be from another EMR and interpreted by another provider. Please see original notes in EMR for more complete details. EKG Summary: DATE/TIME OF SERVICE: 09/24/22 1626 Conclusion Atrial-paced complexes...other complexes also detected Borderline T abnormalities, diffuse leads...T flat/neg atrial paced, consider occassional V paced v PVC Stress Test Summary: Date of study: 07/03/2018 Impressions: Normal myocardial perfusion and contraction after pharmacological stress. Summary: 1. Myocardial perfusion imaging: No myocardial perfusion defects noted. 2. The calculated left ventricular ejection fraction after stress: 53%. LV global systolic function is normal. No left ventricular regional motion abnormality. 3. Stress ECG conclusions: The stress ECG is negative. 4. Baseline ECG: Atrial paced rhythm. Echocardiogram Summary: 08/2024: Conclusion Technically difficult and suboptimal study Left ventricle appears normal in size wall thickness and overall systolic function. Ejection fraction is estimated at 50 to 55% Normal right ventricular size and function Both atria are normal in size Aortic valve is sclerotic and trileaflet with trace regurgitation Ascending aorta measures 4.18 cm Date of Exam: 03/01/17 *STUDY CONCLUSIONS* Summary: 1. Left ventricle: The cavity size was normal. Wall thickness was increased in a pattern of mild LVH. Systolic function was normal. The estimated ejection fraction was 60-65%. The tissue Doppler parameters were abnormal. There was no evidence of elevated ventricular filling pressure by Doppler parameters. 2. Mitral valve: There was mild regurgitation. 3. Left atrium: The atrium was mildly dilated. 4. Right ventricle: The cavity size was normal. Wall thickness was normal. Pacer wire or catheter noted in right ventricle. Systolic function was normal. 5. Right atrium: The atrium was mildly dilated. 6. Atrial septum: No defect or patent foramen ovale was identified. 7. Tricuspid valve: There was mild-moderate regurgitation. 8. Pulmonary arteries: Pulmonary systolic pressure was in the range of 25mm Hg to 35mm Hg. 9. Inferior vena cava: The vessel was normal in size. The respirophasic diameter changes were in the normal range (greater than or equal to 50%), consistent with normal central venous pressure. 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:: [employer] Reason for Placement:: Tachy-Abner Syndrome Date of Last Device Interrogation:: 11/07/24 Airway Exam Known Difficult Airway: No Mallampati Class: 3 Mouth Opening: Normal (> 3cm) Thyromental Distance: Greater than 3 cm Neck Range of Motion: Full ROM Neck Circumference: Thick Teeth Condition: Generalized Poor Dentition (Many missing, patient denies loose, chipped, cracked, or broken) ASA Classification ASA Score: ASA 3 Emergency Case?: No NPO Status NPO Status: NPO Clears >2 hours, Solids >8 hours Anesthesia Plan Resuscitation Status: Full Code Anesthesia Technique: MAC Anesthesia Airway Planned: Natural Airway Monitors Used: Standard Monitors
[2024-12-05 09:09] VITALS: BMI 40.3
[2024-12-05] MEDS: Duovisc Viscoelastic System EACH 1 EACH (10:00)
[2024-12-05] MEDS: Lidocaine 1% Pres-Free 5 ML VIAL (10:00)
[2024-12-05] MEDS: Balanced Salt Soln.-PLUS 500 ML BAG OP (10:02)
[2024-12-05] MEDS: Povidone-Iodine Ophth 30 ML BTL (10:02)
[2024-12-05] MEDS: Tetracaine 0.5% 4 ML BTL OS (10:03)
[2024-12-05] MEDS: Phenylephrine/Lidocaine (15/10) MG/ML 1 ML VIAL (10:04)
[2024-12-05] MEDS: Moxifloxacin-PF 1 MG/ML VIAL (10:05)
[2024-12-05] MEDS: Prednisolone 1%, Moxifloxacin 0.5%, Bromfenac 0.09% 5.6ML BTL OS (10:09)
[2024-12-05 10:21] VITALS: BP 156/84; PULSE 62; RESP 16; TEMP 36.1; O2SAT 96
--- NOTE | 2024-12-05 10:22 | W.PM.DSUDISC ---
Date of service: 12/05/24 Discharge Plan Disposition Patient Disposition: Home Discharge Details Attending Provider: Enrique Morton Primary Care Provider: Alethea Rodriguez Home Meds and New Rx's Prescriptions: No Action nystatin 100,000 unit/gram ointment 1 applic topical BID Qty: 30 3RF nystatin 100,000 unit/gram powder 1 applic topical TID Qty: 30 2RF Lupron Depot 7.5 mg syringe kit 7.5 mg IM ONCE Qty: 1 0RF aspirin [Aspirin Low-Strength] 81 MG tablet,chewable 81 mg PO DAILY dofetilide 500 MCG capsule 500 mcg PO Q12H Qty: 60 12RF duloxetine 30 mg capsule,delayed release(DR/EC) 30 mg PO DAILY metformin 500 mg tablet 500 mg PO BID metoprolol succinate [Toprol XL] 100 mg tablet extended release 24 hr 100 mg PO BID melatonin 1 mg tablet See Rx Instructions PO HS PRN Rx Instructions: 1 mg at hs and may increase up to 3 mg orally bedtime PRN; warfarin 5 mg tablet 5 mg PO Q OTHER DAY Rx Instructions: on odd numbered days furosemide [Lasix] 20 mg tablet 10 mg PO DAILY PRN rosuvastatin [Crestor] 5 mg tablet 2.5 mg PO EVERY OTHER DAY Patient Comments: CUT DOSE HIMSELF TO 2.5MG QOD warfarin [Coumadin] 5 mg tablet 2.5 mg PO DIRECTED levothyroxine 200 mcg tablet 200 mcg PO DAILY Patient Comments: TAKE 1 TABLET BY MOUTH ONCE DAILY ON AN EMPTY STOMACH WITH 50MCG TABLET, NO FOOD OR OTHER MEDICATION FOR ATLEAST 30-60 MINUTES AFTER TAKING losartan 25 mg tablet 25 mg PO DAILY Patient Comments: TAKE 1 TABLET BY MOUTH ONCE DAILY clotrimazole [Antifungal (clotrimazole)] 1 % cream 1 applic topical BID levothyroxine 25 mcg tablet 50 mcg PO DAILY Patient Comments: TAKE 1 TABLET BY MOUTH ONCE DAILY IN THE MORNING,IN ADDITION TO 200 MCG FOR TOTAL DOSE OF 250 MCG 1 HOUR BEFORE OTHER MEDICATIONS ON EMPTY STOMACH Discharge Instructions Stand Alone Forms: DSU Post-Op CataractHeather (DSU) Discharge Orders Discharge Orders: Discharge Order (Routine); Ordered 12/05/24 Ordered By: Enrique Morton DS: Diagnosis Discharge Diagnosis (1) Nuclear age-related cataract, left eye: Status: Resolved
--- NOTE | 2024-12-05 10:23 | ROE_ITS ---
Operative Note Operative Note PRE-OP DIAGNOSIS: Nuclear cataract, left eye POST-OP DIAGNOSIS: same PROCEDURE: Cataract extraction using phacoemulsification with intraocular lens implant, left eye SURGEON: Enrique Morton ANESTHESIA TYPE: Local By Surgeon and MAC Refer to Anesthesia Record PATHOLOGY: none sent COMPLICATIONS: None Patient was transported to: same day Patient's condition: stable Implants: Paramjit Clareon [id number] Indications: Progressive decreased vision due to cataract, left eye Procedure Description: CATARACT SURGERY OPERATIVE REPORT PREOPERATIVE DIAGNOSIS: Nuclear cataract, left eye POSTOPERATIVE DIAGNOSIS: Same OPERATION: Cataract extraction using phacoemulsification with posterior chamber intraocular lens implant, left eye. IOL: IOL Sound Technician Supervisor/Model: Paramjit Clareon [id number] IOL Power: + 20.0 diopters IOL Serial Number: [id number] Optic Diameter: 6.0mm Haptic/Overall Diameter: 13.0mm PHACO INFO: Paramjit Klouturion Vision System with OZil and Active Fluidics Cumulative Dispersed Energy (CDE): 9.87 seconds SURGEON: Enrique Morton MD, SAMEERA ANESTHESIA: Monitored Anesthesia Care (MAC), with local sub-tenon's anesthetic infiltration COMPLICATIONS: None SPECIMENS: None INDICATIONS FOR PROCEDURE: The patient is an 79-year-old male with history of diminished visual acuity in both eyes secondary to the development of bilateral nuclear cataracts. He is significantly symptomatic that he desires cataract surgery in attempt to improve and maximize his vision. The option of cataract surgery was offered to the patient and he wished to proceed. See office notes for detailed information. PROCEDURE: The correct surgical eye was identified and marked as the left eye and the pupil was dilated in the preoperative area using mydriatics and cycloplegics. The dilated pupil size was 5.0 mm. The patient elected to proceed without oral sedation. The patient was brought to the operating room where cardiopulmonary monitoring was instituted and surgical time-out was performed, confirming the correct operative eye and IOL power. Topical anesthesia was administered and ophthalmic povidone-iodine 5% was instilled into the conjunctival fornices. The paulina-ocular area was prepped with Betadine 10% solution and draped in the usual sterile fashion for intraocular surgery, including an aperture drape. A Tegaderm transparent film dressing was cut in half and used to cover the lashes and lid margins. Care was taken to sequester the lashes and lid margins under the Tegaderm dressing. A lid speculum was placed between the lids of the operative eye and the Paramjit LuxOR Revalia operating microscope was maneuvered into position. Yael scissors were then used to make a conjunctival buttonhole approximately 6mm posterior to the limbus in the inferonasal quadrant. Blunt dissection was carried out to expose bare sclera, and a blunt-tipped sub-tenon?s anesthesia cannula was introduced and passed posteriorly along the globe where non- preserved plain lidocaine was injected into posterior sub-Tenon?s space. A sideport knife was used to make a paracentesis port. Intraocular phenylephrine/lidocaine was injected into the anterior chamber. The anterior chamber was then filled with viscoelastic. A keratome knife was used construct a two-plane clear corneal tunnel extending 2.0mm into clear cornea. A flap was raised on the anterior capsule and capsulorhexis forceps were used to complete a continuous curvilinear capsulorhexis of 5.0 mm. Balanced salt solution was then used to perform cortical cleaving hydrodissection and nuclear hydrodelineation until the lens could be freely rotated within the capsular bag. The lens nucleus was then disassembled and removed within the capsular bag and iris plane using phacoemulsification. Residual cortical material was removed using the irrigation/aspiration handpiece. The posterior capsule was carefully polished to remove as much residual lens epithelial cells as safely possible. The capsular bag was then inflated and the anterior chamber deepened with viscoelastic. The lens implant described above was inserted into the capsular bag using the Paramjit Autonome Injector. A Kuglen hook was used to dial the IOL into position. Residual viscoelastic was then removed first from posterior to the IOL, then from the anterior chamber using the I/A handpiece. The lens implant was noted to center nicely within the capsular bag. The incisions were stromally hydrated, and the anterior chamber was reformed using BSS. Then 0.5cc of moxifloxacin 1.0mg/ml were injected into the capsular bag and anterior chamber. The incisions were checked with a Weck spear and found to be secure. Several drops o f ophthalmic povidone-iodine 5% were then applied to the eye followed by two drops of combination steroid/NSAID/antibiotic solution. The drapes were removed and a clear plastic protective eye shield was placed over the eye. The patient was then returned to Same Day Surgery in stable condition. Date of Procedure: 12/05/24
--- NOTE | 2024-12-05 10:34 | W.ANESPOSTOP ---
Postoperative Evaluation Date, Time and Location Date Performed: 12/05/24 Time Performed: 10:34 Patient Location: Day Surgery Unit Vital Signs Most Recent Imported Vital Signs: Most Recent Vital Signs Temp Pulse Resp BP Pulse Ox 36.1 C L 62 16 156/84 H 96 12/05/24 10:21 12/05/24 10:21 12/05/24 10:21 12/05/24 10:21 12/05/24 10:21 Pain Score Most Recent Pain Score: Most Recent Pain Score Pain Level 0 12/05/24 10:21 Assessment Mental Status: Awake (Alert & Oriented to Patient Baseline) Airway and Respiratory Function: Patent airway with normal (patient baseline) respiratory exam Cardiovascular Function: Hemodynamically Stable Hydration Status: Adequately Hydrated Nausea & Vomiting: No Nausea or Vomiting Pain: Pt. Denies Any Pain Peripheral Nerve Block: Patient did not receive a nerve block
== END 2024-12-05 10:48 | disposition home or self-care (01) ==
LOC: SUR 07:56
PROVIDERS: PCP Family Medicine; Visit Provider Ophthalmology
PROC: (CPT 66984; principal; 2024-12-05 10:30)
DX: H25.12 Age-related nuclear cataract, left eye (principal)
CPT/HCPCS: 66984; 00123; V2632; J2003

== ENCOUNTER → 2025-01-09 13:46 | Outpatient (BNVA) | payer MEDICARE, SELFPAY | PROVIDERS: PCP Family Medicine; Referring Provider Family Medicine; Visit Provider Urology | DX: C61 Malignant neoplasm of prostate (principal) | CPT/HCPCS: 96402; J9217 ==

== ENCOUNTER 2025-01-20 15:59 | Outpatient (REF) | payer MEDICARE, SELFPAY ==
[2025-01-21 17:31] LABS: PSA, Diagnostic 0.1 ng/mL (<=6.5)
[2025-01-31 13:29] LABS: Testosterone, Free 0.7 pg/mL (30.0-135.0)
== END 2025-01-20 16:00 | disposition home or self-care (01) ==
LOC: NCHCN 15:59
PROVIDERS: PCP Family Medicine; Visit Provider Family Medicine
DX: C61 Malignant neoplasm of prostate (principal)
CPT/HCPCS: 84402; 84403; 84153

== ENCOUNTER → 2025-02-23 12:31 | Outpatient (BNVA) | payer MEDICARE, SELFPAY | PROVIDERS: PCP Family Medicine; Referring Provider Family Medicine; Visit Provider Urology | DX: C61 Malignant neoplasm of prostate (principal) | CPT/HCPCS: 96402; J9217 ==

== ENCOUNTER 2025-03-31 17:18 | Outpatient (REF) | payer MEDICARE, SELFPAY ==
[2025-03-31 21:29] LABS: Magnesium 2.0 mg/dL (1.6-2.6)
[2025-03-31 21:31] LABS: Anion Gap 4.4 mmol/L (3-11); BUN 23 mg/dL (9-23); CO2 26.6 mmol/L (20.0-31.0); Calcium 9.6 mg/dL (8.3-10.6); Chloride 109 mmol/L (98-107); Glucose 125 mg/dL (74-106); Potassium 4.2 mmol/L (3.5-5.1); Sodium 140 mmol/L (136-145)
[2025-03-31 21:33] LABS: TSH (W/Ref FT4) 1.06 uIU/mL (0.55-4.78)
== END 2025-03-31 17:19 | disposition home or self-care (01) ==
LOC: NCHCN 17:18
PROVIDERS: PCP Family Medicine; Visit Provider Family Medicine
DX: E03.9 Hypothyroidism, unspecified (principal); I48.0 Paroxysmal atrial fibrillation
CPT/HCPCS: 80048; 83735; 84443

== ENCOUNTER → 2025-04-03 12:50 | Outpatient (BNVA) | payer MEDICARE, SELFPAY | PROVIDERS: PCP Family Medicine; Visit Provider Urology | DX: C61 Malignant neoplasm of prostate (principal) | CPT/HCPCS: 96402; J9217 ==

== ENCOUNTER 2025-04-07 19:08 | Outpatient (REF) | payer MEDICARE, SELFPAY ==
[2025-04-07 20:44] LABS: Abs Immature Grans 0.04 10^3/uL (0.0-0.06); HCT 43.2 % (40.0-50.0); HGB 14.4 g/dL (13.5-17.5); Immature Grans % 0.5 %; MCH 30.1 pg (27.0-33.0); MCHC 33.3 % (32.0-36.0); MCV 90 fL (80-95); MPV 11.5 fL (8.0-11.0); Platelet Count 210 10^3/uL (130-400); RBC 4.78 10^6/uL (4.36-5.78); RDW 13.1 % (11.8-14.1); RDW-SD 43.5 fL; WBC 8.87 10^3/uL (4.4-10.8)
== END 2025-04-07 19:09 | disposition home or self-care (01) ==
LOC: NCHCN 19:08
PROVIDERS: PCP Family Medicine; Visit Provider Family Medicine
DX: R06.02 Shortness of breath (principal)
CPT/HCPCS: 83880; 85025